=== PATIENT | female | born 1965 | race Caucasian/White ===

== ENCOUNTER 2025-07-06 14:08 | Inpatient (IN) | payer OTHER, SELFPAY ==
--- OUTSIDE RECORDS SUMMARY | 2025-07-03 10:45 | XMS_ITS | Encounter Summary ---
Author Organization [facility] Address [address] [place] [address] Care Team Providers Care Dedicated Driver Name Role Phone Karlene Drake MD Primary Care Provider [phone] Reason for Visit * Reason Comments SDMV SDMV * Consultation (Routine) - Authorized Specialty Diagnoses / Procedures Referred By Jackson ortiz Referred To Contact Thoracic Surgery Diagnoses Chronic obstructive pulmonary disease, unspecified COPD type (CMS/HCC V24, CMS/HCC V28) Portia Johnson MD 175 [facility] [address] [place] [address] Phone: tel: fax: Lung Screening Program - [address] [place] [address] Phone: tel: fax: Referral ID Status Reason Start Date Expiration Date Visits Requested Visits Authorized [id number] Authorized Specialty Services Required 06/09/2025 06/09/2026 1 1 Encounter Details Date Type Department Care Team ([facility] st Contact Info) Description 07/03/2025 10:45 AM EDT Office Visit Lung Screening Program - [place] [facility] [address] [place] [phone] Gabriela Brooks PA [address] [place] [phone] Encounter for screening for malignant neoplasm of lung in current smoker with 20 pack year history or greater (Primary Dx) Social History Tobacco Use Types Packs/Day Years Used Date Smoking Tobacco: Every Day Cigarettes 0.5 48.7 Started: 1976 Smokeless Tobacco: Never Tobacco Cessation:Ready to Q uit: Not Asked; Counseling Given: Not Answered Alcohol Use Standard Drinks/Week Comments No 0 (1 standard drink = 0.6 oz pur e alcohol) Comments Unknown Sex and Gender Information Value Date Recorded Sex Assigned at Female 06/13/2025 10:47 PM EDT Legal Sex Female 9:56 AM EST Gender Identity Not on file Sexual Orientation Not on file documented as of this encounter Last Filed Vital Signs Vital Sign Reading Time Taken Comments Blood Pressure - - Pulse - - Temperature 36.5 C (97.7 F) 07/03/2025 11:04 AM EDT Respiratory Rate - - Oxygen Saturation - - Inhaled Oxygen Concentration - - Weight - - Height - - Body Mass Index - - documented in this encounter Progress Notes * FABI Hill - 07/03/2025 10:45 AM EDT Images from the original note were not included. Lung Cancer Screening Program Shared Decision Making Visit Patient name: Anette Teran : 1965 Date of Visit: 07/03/2025 Care Team Referring Provider: Portia Johnson MD PCP: Karlene Drake MD History of Present Illness Ms. Teran is a 59 y.o. female who patient presents to the Lung Cancer Screening Program at [facility] for her Shared Decision Making visit. At time of this visit the patient denies any signs or symptoms concerning for active lung cancer including new or worsening cough, hemoptysis, significant chest pain, significant dyspnea, or unintentional weight loss. She denies any recent respiratory illnesses or hospitalizations for a respiratoryillness. Past Medical History: Diagnosis Date Atypical chest pain DX:Atypical chest pain Chronic pain of right ankle 07/03/2018 DX:Chronic pain of right ankle COPD (chronic obstructive pulmonary disease) ([facility] V24, [facility] V28) DX:COPD (chronic obstructive pulmonary disease) ([facility]) Diarrhea DX:Diarrhea Diarrhea DX:Diarrhea DVT prophylaxis DX:DVT prophylaxis Filling defect on imaging study DX:Filling defect on imaging study GERD (gastroesophageal reflux disease) DX:GERD (gastroesophageal reflux disease) Nausea DX:Nausea Passage of loose stools DX:Passage of loose stools SIRS (systemic inflammatory response syndrome) ([facility] V24, [facility] V28) DX:SIRS (systemic inflammatory response syndrome) ([facility]) Stress DX:Stress 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 90 tablet 1 Combivent Respimat 20-100 mcg/actuation inhaler INHALE ONE PUFF BY MOUTH FOUR TIMES A DAY NEEDEDFOR FOR SHORTNESS OF BREATH 4 g 1 fluticasone HFA (Flovent HFA) 110 mcg/actuation inhaler Inhale 2 puffs by mouth 2 (two) times a day. Rinse mouth with water after use to reduce aftertaste and incidence of candidiasis. Do not swallow. 1 each 11 gabapentin (NEURONTIN) 300 mg capsule Take 1 capsule (300 mg total) by mouth 3 (three) times a day if needed (pain). 90 each 5 midodrine (PROAMATINE) 2.5 mg tablet Take 1 tablet (2.5 mg total) by mouth 3 (three) times a day before meals. 90 each 0 omeprazole (PriLOSEC) [address] capsule Take 1 capsule (40 mg total) by mouth 1 (one) time each day.Do not crush or chew. 90 capsule 3 tiZANidine (ZANAFLEX) 2 mg tablet Take 1 tablet (2 mg total) by mouth 3 (three) times a day if needed for muscle spasms. 30 tablet 0 umeclidinium-vilanteroL (Anoro Ellipta) 62.5-25 mcg/actuation inhaler Inhale 1 puff by mouth 1 (one) time each day. 3 each 4 No current facility-administered medications for this visit. Social History Tobacco Use Smoking status: Every Day Current packs/day: 0.50 Average packs/day: 0.5 packs/day for 48.7 years (24.3 ttl pk-yrs) Types: Cigarettes Start date: 1976 Smokeless tobacco: Never Vaping Use Vaping status: Every Day Substances: Nicotine Devices: Disposable Substance Use Topics Alcohol use: No Drug use: No Social History Social History Narrative Not on file Family History Problem Relation Name Age of Onset Stroke Mother Thyroid disease Mother Depression Mother Diabetes Father Heart attack Father Diabetes Maternal Grandmother Lung cancer Neg Hx Exposure History Patient denies any significant exposure history Physical Exam Physical Exam Constitutional: General: She is not in acute distress. Appearance: She is well-developed. She is not ill-appearing. HENT: Head: Normocephalic and atraumatic. Mouth/Throat: Mouth: Mucous membranes are moist. Pulmonary: Effort: Pulmonary effort is normal. No accessory muscle usage or respiratory distress. Neurological: Mental Status: She is alert and oriented to person, place, and time. Psychiatric: Mood and Affect: Mood normal. Behavior: Behavior is cooperative. Assessment and Plan: Ms. Teran is a 59 y.o. female, current smoker, with a 24 pack-year total. The patient was determined to be eligible for LDCT scan given their age, tobacco history, and current asymptomatic state of health. All of the patient's questions were answered and understood at time of this visit. Patientis willing to pursue diagnosis and treatment should a lung cancer be found. The patient wishes to proceed with Lung Cancer Screening. The patient will be having her LDCT today following this visit. Patient Information / Education The patient was educated on our program's process for managing suspicious findings discovered on screening LDCT scans. Any patient with a Lung-RADS score 4 will be reviewed by a multidisciplinary team to form a plan of action in regards to that specific suspicious finding. If any further work-up iswarranted, this will be arranged and followed by the Lung Cancer Screening Program. The patient [facility] care physician will be notified of any suspicious LDCT scan results and the recommended plan. Patient educated on the importance of annual screening adherence. Importance of smoking cessation discussed. Patient educated that their primary care physician will be responsible for any incidental findings found on screening LDCT scans. Lung Cancer Screening decision aid and smoking cessation resources were made available to patient at time of this visit. FABI Hill [facility] Lung Cancer Screening Program [address] [facility], [address] [facility] [phone] documented in this encounter Plan of Treatment Upcoming Encounters Date Type Department Care Team ([facility] st Contact Info) Description 07/28/2025 11:30 AM EDT Office Visit Internal Medicine - [place] 175 [facility] [address] [place] [phone] Cj Welsh NP 175 [facility] Azael [address] [place] [address] 12/11/2025 9:45 AM EST Ancillary Procedure Pulmonol - [place] [address] [phone] 12/11/2025 10:30 AM EST Office Visit Pulmonolgy - [place] 175 [facility] [address] [place] [phone] Portia Johnson MD [address] [address] documented as of this encounter Visit Diagnoses Diagnosis Encounter for screening for malignant neoplasm of lung in current smoker with 20 pack year history or greater- Primary documented in this encounter Orders Outpatient Referral Count Last Ordered Date Fir st Ordered Date AMB REFERRAL TO [facility] LUNG SCREENING PROGRAM 1 07/03/2025 documented in this encounter Care Teams Dedicated Driver Relationship Specialty Start Date End Date Karlene Drake MD [address] [phone] PCP - General Internal Medicine 03/30/21 documented as of this encounter
--- OUTSIDE RECORDS SUMMARY | 2025-07-03 11:29 | XMS_ITS | Encounter Summary ---
Author Organization [facility] Address [address] [place] [address] Care Team Providers Care Senior Microstrategy Developer Name Role Phone Karlene Drake MD Primary Care Provider [phone] Reason for Referral * Imaging (Routine) - Authorized Specialty Diagnoses / Procedures Referred By Jackson ortiz Referred To Contact Radiology Diagnoses Screening for lung cancer Former smoker Procedures CT Lung Screening Candy Mcrae MD [address] [address] Phone: tel: fax: [address] [address] Phone: tel: Referral ID Status Reason Start Date Expiration Date V isits Requested Visits Authorized [id number] Authorized 06/11/2025 08/10/2025 1 1 Reason for Visit * Imaging (Routine) - Authorized Specialty Diagnoses / Procedures Referred By Jackson ortiz Referred To Contact Radiology Diagnoses Screening for lung cancer Former smoker Procedures CT Lung Screening Candy Mcrae MD [address] [address] Phone: tel: fax: [address] [address] Phone: tel: Referral ID Status Reason Start Date Expiration Date V isits Requested Visits Authorized [id number] Authorized 06/11/2025 08/10/2025 1 1 Encounter Details Date Type Department Care Team (Latest Contact Info) Description 07/03/2025 11:29 AM EDT - 07/03/2025 11:59 PM EDT Hospital Encounter [facility] CT Scan [address] [place] [address] Screening for lung cancer; Former smoker Discharge Disposition: Home or Self Care Social History Tobacco Use Types Packs/Day Years Used Date Smoking Tobacco: Every Day Cigarettes 0.5 48.7 Started: 1978 Smokeless Tobacco: Never Alcohol Use Standard Drinks/Week Comments No 0 (1 standard drink = 0.6 oz pur e alcohol) Comments Unknown Sex and Gender Information Value Date Recorded Sex Assigned at Female 06/13/2025 10:47 PM EDT Legal Sex Female 9:56 AM EST Gender Identity Not on file Sexual Orientation Not on file documented as of this encounter Medications at Time of Discharge atorvastatin (LIPITOR) 40 mg tablet Take 1 tablet (40 mg total) by mouth 1 (one) time each day. 90 tablet 1 01/20/2025 Combivent Respimat 20-100 mcg/actuation inhaler INHALE ONE PUFF BY MOUTH FOUR TIMES A DAY NEEDED FOR FOR SHORTNESS OF BREATH 4 g 1 03/03/2025 fluticasone HFA (Flovent HFA) 110 mcg/actuation inhaler Inhale 2 puffs by mouth 2 (two) times a day. Rinse mouth with water after use to reduce aftertaste and incidence of candidiasis. Do not swallow. 1 each 11 06/09/2025 6 gabapentin (NEURONTIN) 300 mg capsule Take 1 capsule (300 mg total) by mouth 3 (three) times a day if needed (pain). 90 each 5 06/09/2025 6 midodrine (PROAMATINE) 2.5 mg tabletIndications :Dizziness,Hypote nsion, unspecified hypotension type Take 1 tablet (2.5 mg total) by mouth 3 (three) times a day before meals. 90 each 06/09/2025 5 omeprazole (PriLOSEC) [address] capsuleIndication s:Gastroesophagea l reflux disease, unspecified whether esophagitis present Take 1 capsule (40 mg total) by mouth 1 (one) time each day. Do not crush or chew. 90 capsule 3 06/09/2025 tiZANidine (ZANAFLEX) 2 mg tabletIndications :Muscle spasm of both lower legs Take 1 tablet (2 mg total) by mouth 3 (three) times a day if needed for muscle spasms. 30 tablet 06/09/2025 umeclidinium-max nteroL (Anoro Ellipta) 62.5-25 mcg/actuation inhaler Inhale 1 puff by mouth 1 (one) time each day. 3 each 4 06/26/2025 documented as of this encounter Discharge Disposition Disposition Code Departure Means Destination Home or Self Care documented in this encounter Plan of Treatment Upcoming Encounters Date Type Department Care Team (Late st Contact Info) Description 07/28/2025 11:30 AM EDT Office Visit Internal Medicine - [place] [address] [phone] Cj Welsh NP [address] [address] 12/11/2025 9:45 AM EST Ancillary Procedure Pulmonolgy - [address] [phone] 12/11/2025 10:30 AM EST Office Visit Pulmonolgy [address] [phone] Portia Johnson MD [address] [address] Pending Results Name Type Priority Associated Diagnoses Date /Time CT Lung Screening Imaging Routine Screening for lung cancer Former smoker 07/03/2025 11:33 AM EDT Scheduled Orders Name Type Priority Associated Diagnoses Orde r Schedule CT Lung Screening Imaging Routine Screening for lung cancer Former smoker Once for 1 Occurrences starting 07/03/2025 until 07/03/2025 documented as of this encounter Visit Diagnoses Diagnosis Screening for lung cancer Former smoker Personal history of tobacco use, presenting hazards to health documented in this encounter Care Teams Senior Microstrategy Developer Relationship Specialty Start Date End Date Karlene Drake MD [address] [phone] PCP - General Internal Medicine 03/30/21 documented as of this encounter
[2025-07-06 14:15] VITALS: BP 133/80; PULSE 78; RESP 18; TEMP 35.9; O2SAT 96; BMI 29.1
--- NOTE | 2025-07-06 14:23 | ED.GENADULT ---
HPI - General Adult General Chief complaint: Psychiatric Symptoms Stated complaint: SI Time Seen by Provider: 07/06/25 14:23 Source: patient Mode of arrival: ambulatory Limitations: no limitations History of Present Illness ED Provider: Mariel Calles PA-C HPI narrative: Patient is a 59 year old assigned female at with a history of previous suicide attempt presenting to the emergency department today with suicidal ideation. Patient states that her mother in April and she has been feeling more depressed lately with thoughts of hurting herself. Patient states that her urine has also been odorus but she is not having any other symptoms or complaints at this time. Related Data Home Medications ?Medication ?Instructions ?Recorded ?Confirmed atorvastatin 40 mg tablet 40 mg PO DAILY 07/06/25 07/06/25 clonazepam 1 mg tablet 1 mg PO BID PRN Anxiety 07/06/25 07/06/25 divalproex 500 mg tablet,delayed 500 mg PO BID 07/06/25 07/06/25 release docusate sodium 100 mg capsule 100 mg PO BID PRN constipation 07/06/25 07/06/25 fluoxetine 40 mg capsule 40 mg PO DAILY 07/06/25 07/06/25 gabapentin 300 mg capsule 300 mg PO TID 07/06/25 07/06/25 hydroxyzine pamoate 50 mg capsule 50 mg PO TID PRN anxiety 07/06/25 07/06/25 ipratropium 20 mcg-albuterol 100 1 puff inhalation QID 07/06/25 07/06/25 mcg/actuation mist for inhalation (Combivent Respimat) midodrine 2.5 mg tablet 2.5 mg PO TID 07/06/25 07/06/25 omeprazole 40 mg capsule,delayed 40 mg PO DAILY 07/06/25 07/06/25 release tizanidine 2 mg tablet 2 mg PO TID 07/06/25 07/06/25 umeclidinium 62.5 mcg-vilanterol 1 ea inhalation DAILY 07/06/25 07/06/25 25 mcg/actuation powdr for inhalation (Anoro Ellipta) zolpidem 10 mg tablet 10 mg PO BEDTIME PRN Insomnia 07/06/25 07/06/25 Allergies Allergy/AdvReac Type Severity Reaction Status Date / Time hydrocodone (HYDROCODONE) AdvReac Mild ITCHING Verified 07/06/25 15:39 Review of Systems Constitutional: Constitutional: Reports as per HPI Eyes: Eyes: Reports as per HPI ENT: Reports as per HPI Cardiovascular: Cardiovascular: Reports as per HPI Respiratory: Respiratory: Reports as per HPI Gastrointestinal: Gastrointestinal: Reports as per HPI Genitourinary: Genitourinary: Reports as per HPI Musculoskeletal: Musculoskeletal: Reports as per HPI Integumentary/Breasts: Skin/Breast: Reports as per HPI Neurologic: Reports as per HPI Psychiatric: Psychiatric: Reports as per HPI Endocrine: Endocrine: Reports as per HPI Hematologic/Lymphatic: Hematologic/Lymphatic: Reports as per HPI Allergic/Immunologic: Allergic/Immunologic: Reports as per HPI [facility] Past Medical History Attestation statement: The following information was validated with the patient. Source: old records reviewed and nursing notes reviewed Social History Social History Unable to assess alcohol history related to: Unknown Smoked in Last 30 Days: Yes Advance Directives: No Advance Directives Information Provided: Yes Do you have a plan to hurt others: No Plan Physical Exam ED Vital Signs: Vital Signs - 24 hr 07/06/25 14:15 Temperature 96.6 F L Pulse Rate 78 Respiratory Rate 18 Blood Pressure 133/80 Pulse Oximetry 96 BMI result Body Mass Index 29.1 Const General: cooperative, no acute distress, alert and awake Nutritional Appearance: well nourished Orientation/consciousness: patient oriented x3 HENMT Head: Yes normal to inspection and Yes atraumatic Ears: hearing grossly normal bilaterally and external ears normal General nose exam: Normal external nose present, no nasal discharge noted and no epistaxis Face and sinus: Yes normal facial exam, No abrasion and No laceration Mouth: Normal oral and palatal mucosa present, no drooling and no muffled voice Eyes General: appearance normal, both eyes and all related structures Periorbital: periorbital findings normal Eyelids: Yes eyelids normal Conjunctivae: conjunctivae normal Pupils: Equal, round and reactive pupils present EOM: EOMs intact bilaterally Neck Neck: Yes normal visual inspection and Yes full ROM Resp Effort & Inspection: normal respiratory effort and able to speak in complete sentences Neuro General: patient oriented x3, moves all extremities and CN's II-XI intact bilaterally Cranial nerves: Yes Equal, round and reactive pupils present Cognition (Neuro): normal cognition Extrem General: Yes normal to inspection, Yes full ROM and Yes capillary refill normal Psych Appearance: grossly normal Mental Status: mental status grossly normal Affect: Sad affect present Thought content: Suicidality present Medical Decision Making Medical Decision Making [facility] Narrative: Patient is a 59 year old assigned female at with a history of previous suicide attempt presenting to the emergency department today with suicidal ideation. Patient's physical exam was as noted in the physical exam portion of this note. Patient's blood work was unremarkable. Patient's urine showed a possible UTI - given her report of foul smelling urine, will treat with ABX. Patient was evaluated by the CARE team who recommended inpatient level of psychiatric care. I explained my physical exam findings as well as all test results to the patient. I answered all questions asked by the patient. Patient placed in observation at 1524 pending either admission here at [facility] Psychiatry or transfer to an appropriate psychiatric facility. Differential Diagnosis Differential Diagnoses: The differential diagnosis associated with the presentation includes SI UTI Admission/Observation Consideration of admission/observation: Escalation of care including admission/observation considered Patient will either be admitted here at [facility] Psych or transferred an appropriate psychiatric facility. Consult Healthcare Provider Management of the patient was discussed with: Behavioral Health Provider (spoke with the CARE team as noted in the MDM Rationale portion of this note. ) Lab Data [facility] Lab Attestation statement: I reviewed the patient's lab results. My interpretation of these results are in the MDM Rationale portion of this note. 07/06/25 14:55 07/06/25 14:55 Labs: Lab Results 07/06/25 Range/Units 14:55 WBC 9.7 (4.8-10.8) X10*3/uL RBC 5.18 (4.20-5.50) X10*6/uL Hgb 16.4 H (12.0-16.0) g/dl Hct 47.9 H (37.0-47.0) % MCV 92.5 (80.0-98.0) fL MCH 31.7 (27.0-33.0) pg MCHC 34.2 (31.0-35.0) g/dl RDW 14.8 (11.0-16.0) % Plt Count 363 (160-400) X10*3/uL MPV 10.0 (9.4-12.3) fL Immature Gran % (Auto) 0.7 H (0.0-0.4) % Neut % (Auto) 53.7 (45-73) % Lymph % (Auto) 30.8 (20-40) % Gibson % (Auto) 12.9 H (2-11) % Eos % (Auto) 1.3 (0-4) % Baso % (Auto) 0.6 (0-2) % Lymph # (Auto) 3.0 (1.2-4.9) X10*3/uL Gibson # (Auto) 1.3 H (0.1-1.2) X10*3/uL Eos # (Auto) 0.1 (0.0-0.4) X10*3/uL Baso # (Auto) 0.1 (0.0-0.2) X10*3/uL Abs Immat Gran (auto) 0.07 H (0.00-0.03) X10*3/uL Absolute Neuts (auto) 5.2 (2.0-8.3) x10*3/uL Absolute Nucleated RBC 0.000 (0.0-0.012) X10*3/uL Nucleated RBC % (auto) 0.0 (0.0-0.2) /100WBC Sodium 143 (135-145) mmol/L Potassium 4.2 (3.3-5.1) mmol/L Chloride 104 (96-108) mmol/L Carbon Dioxide 25 (22-29) mmol/L Anion Gap 18 (12-20) BUN 11 (9-16) mg/dL Creatinine 1.03 (0.5-1.4) mg/dL Estim Creat Clear Calc 55.4 Estimated GFR 54 Random Glucose 89 (60-115) mg/dL Calcium 9.6 (8.4-10.2) mg/dL Total Bilirubin 0.5 (0.0-1.0) mg/dL AST 22 (5-31) U/L ALT 21 (0-31) U/L Alkaline Phosphatase 66 (39-117) U/L Total Protein 7.6 (6.5-8.0) g/dL Albumin 4.8 (3.5-5.0) g/dL Urine Color Yellow Urine Appearance Cloudy Urine pH 6.5 (5.0-9.0) Ur Specific [place] 1.015 (1.005-1.025) Urine Protein Negative (Neg-Trace) mg/dL Urine Glucose (UA) Negative (Negative) mg/dL Urine Ketones Negative (Negative) mg/dL Urine Blood Negative (Negative) Urine Nitrite Positive H (Negative) Ur Leukocyte Esterase Trace H (Negative) Urine RBC 0-2 (0-2) /HPF Urine WBC 6-10 H (0-5) /HPF Ur Squamous Epith Cells 3-5 (0-2) /HPF Urine Bacteria 4+ (None Seen) Hyaline Casts 0-2 (0-2) /LPF Urine Opiates Screen Not Detected (Not Detect) Ur Buprenorphine Scrn Not Detected (Not Detect) ng/mL Ur Oxycodone Screen Not Detected (Not Detect) ng/mL Urine Methadone Screen Not Detected (Not Detect) ng/mL Urine Fentanyl Screen Not Detected (Not Detect) Ur Barbiturates Screen Not Detected (Not Detect) Ur Phencyclidine Scrn Not Detected (Not Detect) Ur Amphetamines Screen Not Detected (Not Detect) U Benzodiazepines Scrn Not Detected (Not Detect) Urine Cocaine Screen Not Detected (Not Detect) U Marijuana (THC) Screen Not Detected (Not Detect) Ethyl Alcohol < 10 mg/dL Critical Care Time Critical Care Time Critical Care Time: Yes Total Critical Care Time: 32 Attestation: I spent 32 minutes of Critical Care Time with this patient. This does not include time spent on separately reported billable procedures. Discharge Plan Discharge Clinical Impression: Suicidal ideation, UTI (urinary tract infection) Prescriptions: No Action fluoxetine 40 mg capsule 40 mg PO DAILY atorvastatin 40 mg tablet 40 mg PO DAILY tizanidine 2 mg tablet 2 mg PO TID clonazepam 1 mg tablet 1 mg PO BID PRN (Reason: Anxiety) hydroxyzine pamoate 50 mg capsule 50 mg PO TID PRN (Reason: anxiety) divalproex 500 mg tablet,delayed release (DR/EC) 500 mg PO BID omeprazole 40 mg capsule,delayed release(DR/EC) 40 mg PO DAILY docusate sodium 100 mg capsule 100 mg PO BID PRN (Reason: constipation) gabapentin 300 mg capsule 300 mg PO TID midodrine 2.5 mg tablet 2.5 mg PO TID zolpidem 10 mg tablet 10 mg PO BEDTIME PRN (Reason: Insomnia) umeclidinium-vilanterol [Anoro Ellipta] 62.5-25 mcg/actuation blister with device 1 ea inhalation DAILY Combivent Respimat 20-100 mcg/actuation mist 1 puff inhalation QID Interventions: Webster-Suicide Risk Severity Scale Last Done: 07/06/25 14:53 Print Language: Mongolian
[2025-07-06 15:00] LABS: Hematocrit 47.9 % (37.0-47.0); Hemoglobin 16.4 g/dl (12.0-16.0); Imm Gran Abs Auto 0.07 X10*3/uL (0.00-0.03); Imm Gran Pct Auto 0.7 % (0.0-0.4); Lymphocytes Absolute Auto 3.0 X10*3/uL (1.2-4.9); MANUAL DIFF FLAG NO; Mean Corpuscular HGB Conc 34.2 g/dl (31.0-35.0); Mean Corpuscular Hemoglobin 31.7 pg (27.0-33.0); Mean Corpuscular Volume 92.5 fL (80.0-98.0); NRBC Abs Auto 0.000 X10*3/uL (0.0-0.012); NRBC Pct Auto 0.0 /100WBC (0.0-0.2); Platelet Count 363 X10*3/uL (160-400); Red Blood Count 5.18 X10*6/uL (4.20-5.50); White Blood Count 9.7 X10*3/uL (4.8-10.8)
[2025-07-06 15:02] LABS: Appearance Urine Cloudy; Glucose Urine UA Negative (Negative); PH 6.5 (5.0-9.0); Specific Gravity - Urine 1.015 (1.005-1.025); UMIC TRIGGER UACC YES
[2025-07-06 15:13] LABS: UACC Culture Trigger YES
[2025-07-06 15:16] LABS: Cannabinoid Screen Urine Not Detected (Not Detect)
[2025-07-06 15:32] LABS: Alanine Aminotransferase 21 U/L (0-31); Albumin Level 4.8 g/dL (3.5-5.0); Alkaline Phosphatase 66 U/L (39-117); Anion Gap 18 (12-20); Aspartate Amino Transferase 22 U/L (5-31); Blood Urea Nitrogen 11 mg/dL (9-16); Calcium 9.6 mg/dL (8.4-10.2); Carbon Dioxide 25 mmol/L (22-29); Chloride 104 mmol/L (96-108); Creatinine Clr Calc Pharmacy 55.4; Estimated Glomerular Filt Rate 54; Potassium 4.2 mmol/L (3.3-5.1); Sodium 143 mmol/L (135-145); Total Protein 7.6 g/dL (6.5-8.0)
--- OUTSIDE RECORDS SUMMARY | 2025-07-06 16:21 | XMS_ITS | Encounter Summary ---
Author Organization [facility] Address [id number] [place] [phone] Care Team Providers Care Director Of Marketing And Promotions Name Role Phone Karlene Darke MD Primary Care Provider [phone] Encounter Details Date Type Department Care Team ([facility] st Contact Info) Description 06/12/2025 Telephone Pulmonol - [place] 175 [facility] [address] [place] [phone] Portia Johnson MD 175 [facility] [address] [place] [address] Social History Tobacco Use Types Packs/Day Years Used Date Smoking Tobacco: Former Cigarettes 0.5 48.5 S tarted: 1977 Smokeless Tobacco: Never Alcohol Use Standard Drinks/Week Comments No 0 (1 standard drink = 0.6 oz pur e alcohol) Comments Unknown Sex and Gender Information Value Date Recorded Sex Assigned at Female 06/13/2025 10:47 PM EDT Legal Sex Female 9:56 AM EST Gender Identity Not on file Sexual Orientation Not on file documented as of this encounter Progress Notes * Ian Martinez MA - 06/20/2025 10:28 AM EDT Form on desk to review. * Cristel Black - 06/20/2025 10:03 AM EDT Medicaid pharmacy authorization form received, scanned to patients chatt * Nilsa Barajas MA - 06/12/2025 11:01 AM EDT PA for fluticasone HFA (Flovent HFA) 110 mcg/actuation inhaler initiated on cmm Dx copd * Cristel Makiorio - 06/12/2025 10:06 AM EDT Prior auth needed for fluticasone HFA (Flovent HFA) 110 mcg/actuation inhaler Ortiz: [id number] documented in this encounter Plan of Treatment Upcoming Encounters Date Type Department Care Team (Late st Contact Info) Description 07/28/2025 11:30 AM EDT Office Visit Internal Medicine - [place] [address] [facility] [address] [phone] Cj Welsh NP [address] [address] 12/11/2025 9:45 AM EST Ancillary Procedure Pulmonolgy - [place] [address] [phone] 12/11/2025 10:30 AM EST Office Visit Pulmonolgy - [place] [address] [facility] [address] [phone] Portia Johnson MD [address] [address] documented as of this encounter Visit Diagnoses Not on filedocumented in this encounter Care Teams Director Of Marketing And Promotions Relationship Specialty Start Date End Date Karlene Drake MD [address] [phone] PCP - General Internal Medicine 03/30/21 documented as of this encounter
--- OUTSIDE RECORDS SUMMARY | 2025-07-06 16:21 | XMS_ITS ---
[facility] Organization Unknown Care Team Organization Name Specialty Phone Email Start Date End Da te [facility] Primary Care 09/06/2022 06/17/20 24
--- OUTSIDE RECORDS SUMMARY | 2025-07-06 16:21 | XMS_ITS | Encounter Summary ---
Author Organization [facility] Address [address] [place] [address] Care Team Providers Care Maintenance Planner Name Role Phone Karlene Drake MD Primary Care Provider Reason for Visit * Reason Onset Date Comments PRIOR AUTH 06/23/2025 Encounter Details Date Type Department Care Team ([facility] st Contact Info) Description [facility] [address] [place] [phone] Portia Johnson MD 175 [facility] [address] [place] [address] Social History Tobacco Use Types Packs/Day Years [...] as of this encounter Progress Notes * Nilsa Barajas MA - 06/23/2025 11:12 AM EDT PA for Fluticasone propionate hfa 110 mcg/ act aerosol initiated on cmm Dx J44.9 * Cristel Black - 06/23/2025 10:09 AM EDT Prior auth needed for Fluticasone propionate hfa 110 mcg/ act aerosol Ortiz: [id number] documented in this encounter Plan of Treatment Upcoming Encounters Date Type Department Care Team (Late st Contact Info) Description 07/28/2025 11:30 AM EDT Office Visit Internal Medicine - [place] 175 [facility] [address] [place] [phone] Cj Welsh NP [address] [address] 12/11/2025 9:45 AM EST Ancillary Procedure Pulmonolgy - [place] [address] [phone] 12/11/2025 10:30 AM EST [facility] [address] [phone] Portia Johnson MD [address] [address] documented as of this encounter Visit Diagnoses Not on filedocumented in this encounter Care Teams Maintenance Planner Relationship Specialty Start Date End Date Kralene Drake MD [address] [phone] PCP - General Internal Medicine 03/30/21 documented as of this encounter
--- OUTSIDE RECORDS SUMMARY | 2025-07-06 16:21 | XMS_ITS | Clinical Summary ---
Author Organization [address] [place] [address] [place] [phone] Phone Care Team Providers Care Broadband Installer Name Role Phone Karlene Drake MD Primary Care Provider [phone] Allergies No known active allergies Medications atorvastatin (LIPITOR) 40 mg tablet Take 1 tablet (40 mg total) by mouth 1 (one) time each day. 90 tablet 1 5 Active Combivent Respimat 20-100 mcg/actuation inhaler INHALE ONE PUFF BY MOUTH FOUR TIMES A DAY NEEDED FOR FOR SHORTNESS OF BREATH 4 g 1 5 Active gabapentin (NEURONTIN) 300 mg capsule Take 1 capsule (300 mg total) by mouth 3 (three) times a day if needed (pain). 90 each 5 5 12/06/19 26 Active midodrine (PROAMATINE) 2.5 mg tabletIndicatio ns:Dizziness,Hy potension, unspecified hypotension type Take 1 tablet (2.5 mg total) by mouth 3 (three) times a day before meals. 90 each 5 07/09/20 25 Active tiZANidine (ZANAFLEX) 2 mg tabletIndicatio ns:Muscle spasm of both lower legs Take 1 tablet (2 mg total) by mouth 3 (three) times a day if needed for muscle spasms. 30 tablet 5 Active omeprazole (PriLOSEC) [address] capsuleIndicati ons:Gastroesoph ageal reflux disease, unspecified whether esophagitis present Take 1 capsule (40 mg total) by mouth 1 (one) time each day. Do not crush or chew. 90 capsule 3 5 Active fluticasone HFA (Flovent HFA) 110 mcg/actuation inhaler Inhale 2 puffs by mouth 2 (two) times a day. Rinse mouth with water after use to reduce aftertaste and incidence of candidiasis. Do not swallow. 1 each 11 5 06/09/20 26 Active umeclidinium-vi lanteroL (Anoro Ellipta) 62.5-25 mcg/actuation inhaler Inhale 1 puff by mouth 1 (one) time each day. 3 each 4 5 06/26/20 26 Active omeprazole (PriLOSEC) [address] capsule Take 1 capsule (40 mg total) by mouth 1 (one) time each day. Do not crush or chew. 90 capsule 3 5 06/09/20 25 Discontin ued(Reord er) umeclidinium-vi lanteroL (Anoro Ellipta) 62.5-25 mcg/actuation inhaler Inhale 1 puff by mouth 1 (one) time each day. 3 each 4 5 06/26/20 25 Discontin ued(Reord er) Active Problems Problem Noted Date Diagnosed Date Hyperlipidemia 06/10/2025 Depression 06/10/2025 Former cigarette smoker 06/10/2025 GERD (gastroesophageal reflux disease) Encounters Date Type Department Care Team Description 07/03/2025 11:29 AM EDT - 07/03/2025 11:59 PM EDT Hospital Encounter [facility] CT Scan [address] [place] [phone] Screening for lung cancer; Former smoker Discharge Disposition: Home or Self Care 07/03/2025 10:45 AM EDT Office Visit Lung Screening Program - [place] [address] [facility] [address] [place] [phone] Gabriela Brooks PA Encounter for screening for malignant neoplasm of lung in current smoker with 20 pack year history or greater (Primary Dx) 06/23/2025 Telephone Pulmonolgy [facility] [address] [facility] [address] [place] [phone] Portia Johnson MD 06/19/2025 Telephone Pulmonolgy - [place] [address] [phone] Portia Johnson MD 06/12/[address] [phone] Portia Johnson MD 06/09/2025 10:45 AM EDT Office Visit Pul[address] [phone] Portia Johnson MD Chronic obstructive pulmonary disease, unspecified COPD type (CMS/HCC V24, CMS/[facility] V28) (Primary Dx) 06/09/2025 10:00 AM EDT Office Visit Internal Medicine [address] [phone] Cj Welsh NP Routine adult health maintenance (Primary Dx); Screening for ischemic heart disease; Screening for diabetes mellitus; Vitamin B12 deficiency; Vitamin D deficiency; Encounter for screening mammogram for malignant neoplasm of breast; Hyperlipidemia, unspecified hyperlipidemia type; Chronic obstructive pulmonary disease, unspecified COPD type (CMS/HCC V24, CMS/[facility] V28); Depression, unspecified depression type; Gastroesophageal reflux disease, unspecified whether esophagitis present; Right hip pain; Memory changes; Hypotension, unspecified hypotension type; Muscle spasm of both lower legs; Anemia, unspecified type; Insomnia, unspecified type; Dizziness 06/03/2025 Telephone Internal Medicine - [address] [phone] Karlene Drake MD from Last 3 Months Surgical History Surgery Date Site/Laterality Comments CHOLECYSTECTOMY 1994 PROCEDURE: HISTORICAL CHOLECYSTECTOMY HYSTERECTOMY 1997 PROCEDURE: HISTORICAL TOTAL HYSTERECTOMY WITH BSO; COMMENT: JOSE/BSO Medical History Medical History Date Comments Chronic pain of right ankle 07/03/2018 DX:C hronic pain of right ankle 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 V24, [facility] V28) DX:COPD (chronic o bstructive pulmonary disease) ([facility]) DVT prophylaxis DX:DVT prophylax is Diarrhea DX:Diarrhea Stress DX:Stress Family History Medical History Relation Name Comments Diabetes Father Heart attack Father Diabetes Maternal Grandmother Depression Mother Stroke Mother Thyroid disease Mother Lung cancer Neg Hx Relation Name Status Comments Father (Age 59) MD Maternal Grandfather Maternal Grandmother (Age 77) Mother Alive Paternal Grandfather Paternal Grandmother Alive Social History Tobacco Use Types Packs/Day Years [...] on file Sexual Orientation Not on file Obstetrics History Last Filed Vital Signs Vital Sign Reading Time Taken Comments Blood Pressure 94/60 06/09/2025 11:11 AM EDT Pulse 61 06/09/2025 11:11 AM EDT Temperature 36.5 C (97.7 F) 07/03/2025 11:04 AM EDT Respiratory Rate 20 06/09/2025 11:1 1 AM EDT Oxygen Saturation 94% 06/09/2025 11: 11 AM EDT Inhaled Oxygen Concentration - - Weight 75.7 kg (166 lb 12.8 oz) 025 11:11 AM EDT Height 160 cm (5' 3 ) 06/09/2025 11:11 AM EDT Body Mass Index 29.55 06/09/2025 11:11 AM EDT Plan of Treatment Upcoming Encounters Date Type Department Care Team (Late st Contact Info) Description 07/28/2025 11:30 AM EDT Office Visit Internal Medicine - [place] 175 [facility] [address] [place] [address] Cj Welsh NP [address] [address] 12/11/2025 9:45 AM EST [facility] [address] [phone] 12/11/2025 10:30 AM EST [facility] [address] [phone] Portia Johnson MD [address] [address] Health Maintenance Due Date Last Done Comments Breast Cancer Screening 1965 Cervical Cancer Screening: P ap Smear 1984 DTaP,Tdap,and Td Vaccines (2 - Td or Tdap) 10/30/2011 10/30/2001 Pneumococcal Vaccine: 50+ Years (2 of 2 - PCV) 08/24/2019 08/24/2018 Colorectal Cancer Screening: Colonoscopy 10/08/2022 HIV Screening 10/08/2022 Hepatitis C Screening 10/08/2022 Social Influencers of Health Screening 10/08/2022 RSV Immunization Adult Patients (1 - Risk 60-74 years 1-dose series) 2023 Lung Cancer Screening (Low Dose CT) 05/29/2024 05/29/2023, 05/09/2022, 04/26/2021 Depression Screening 10/30/2024 COVID-19 Vaccine (3 - 2024-2 6 season) 2025 03/15/2021, 02/12/2021 Influenza Vaccine (#1) 2025 Hypertension/CHF/CAD Annual BMP Blood Test 06/09/2026 06/09/2025 Cholesterol Screening (Lipid Panel) 06/09/2030 06/09/2025 Zoster Vaccines Completed 05/08/2020, 12/06/2019 HIB Vaccines Aged Out No longer eligi ble based on patient's age to complete this topic HPV Vaccines Aged Out No longer eligi ble based on patient's age to complete this topic Hepatitis A Vaccines Aged Out No long er eligible based on patient's age to complete this topic Hepatitis B Vaccines Aged Out No long er eligible based on patient's age to complete this topic IPV Vaccines Aged Out No longer eligi ble based on patient's age to complete this topic MMR Vaccines Aged Out No longer eligi ble based on patient's age to complete this topic Meningococcal ACWY Vaccine Aged Out N o longer eligible based on patient's age to complete this topic Meningococcal B Vaccine Aged Out No l onger eligible based on patient's age to complete this topic RSV Immunization Patients Under 20 months Aged Out No longer eligible b ased on patient's age to complete this topic Varicella Vaccines Aged Out No longer eligible based on patient's age to complete this topic Procedures Procedure Name Priority Date/Time Associated Diagnosis Comments CBC WITH AUTO DIFFERENTIAL Routine 06/09/2025 11:34 AM EDT Anemia, unspecified type IRON AND TIBC Routine 06/09/2025 11:34 AM EDT Anemia, unspecified type FOLATE Routine 06/09/2025 11:34 AM EDT Anemia, unspecified type FERRITIN Routine 06/09/2025 11:34 AM EDT Anemia, unspecified type CBC AND DIFFERENTIAL Routine 06/09/2025 11:34 AM EDT Anemia, unspecified type VITAMIN D 25 HYDROXY Routine 06/09/2025 11:34 AM EDT Vitamin D deficiency VITAMIN B12 Routine 06/09/2025 11:34 AM EDT Vitamin B12 deficiency MAGNESIUM Routine 06/09/2025 11:34 AM EDT Routine adult health maintenance THYROID STIMULATING HORMONE WITH REFLEX TO FREE T4 AND FREE T3 Routine 06/09/2025 11:34 AM EDT Routine adult health maintenance HEMOGLOBIN A1C Routine 06/09/2025 11:34 AM EDT Screening for diabetes mellitus COMPREHENSIVE METABOLIC PANEL Routine 06/09/2025 11:34 AM EDT Routine adult health maintenance LIPID PANEL WITH REFLEX TO DIRECT LDL Routine 06/09/2025 11:34 AM EDT Screening for ischemic heart disease CT LUNG SCREENING LOW DOSE Routine 05/29/2023 11:34 AM EDT Personal history of nicotine dependence from Last 3 Months or Most Recently Relevant to Health Maintenance Results * Thyroid stimulating hormone with reflex to free t4 and free t3 (06/09/2025 11:34 AM EDT) Pathologist [facility] TSH 1.35 0.40 - 4.00 mcIU/mL LAB CHEMISTRY METHOD 06/09/2025 4:[address] [facility] Blood Venous blood specimen / Unknown Venipuncture / Unknown 06/09/2025 11:34 AM EDT 06/09/2025 11:34 AM EDT Cj Welsh NP LAB BLOOD ORDERABLES Final Resul t [facility] [address] [place] [address], [place] [phone] * Lipid panel with reflex to direct LDL (06/09/2025 11:34 AM EDT) [facility] Cholesterol 114 0 - 200 mg/dL LAB CHEMISTRY METHOD 06/09/2025 3:[address] [facility] Triglycerides 137 0 - 150 mg/dL LAB CHEMISTRY METHOD 06/09/2025 3:[address] [facility] HDL 55 >=40 mg/dL LAB CHEMISTRY METHOD 06/09/2025 3:[address] [facility] LDL Calculated 32 0 - 100 mg/dL LAB CHEMISTRY METHOD 06/09/2025 3:[address] [facility] Comment:Estimated LDL Calcul ated using equation: Total cholesterol - HDL cholesterol - (Triglycerides/5) VLDL Cholesterol Jimmie 27.4 mg/dL LAB CHEMISTRY METHOD 06/09/2025 3:[address] [facility] Non HDL Chol. (LDL+VLDL) 59 <145 mg/dL LAB CHEMISTRY METHOD 06/09/2025 3:[address] [facility] Chol/HDL Ratio 2.1 0.0 - 4.4 LAB CHEMISTRY METHOD 06/09/2025 3:[address] [facility] Blood Venous blood specimen / Unknown Venipuncture / Unknown 06/09/2025 11:34 AM EDT 06/09/2025 11:34 AM EDT us Cj Welsh NP LAB BLOOD ORDERABLES Final Resul t [facility] [address] [place] [address], [place] [phone] * (ABNORMAL) CBC auto differential (06/09/2025 11:34 AM EDT) WBC 8.2 4.8 - 10.8 K/mcL LAB HEMETOLOGY METHOD 06/09/2025 2:[address] [facility] RBC 4.40 3.80 - 4.80 M/mcL LAB HEMETOLOGY METHOD 06/09/2025 2:[address] [facility] Hemoglobin 13.7 11.5 - 16.0 g/dL LAB HEMETOLOGY METHOD 06/09/2025 2:[address] [facility] Hematocrit 43.4 35.0 - 47.0 % LAB HEMETOLOGY METHOD 06/09/2025 2:[address] [facility] MCV 98.6(H) 79.0 - 98.0 FL LAB HEMETOLOGY METHOD 06/09/2025 2:[address] [facility] MCH 31.1 27.0 - 32.0 pcg LAB HEMETOLOGY METHOD 06/09/2025 2:[address] [facility] MCHC 31.6(L) 32.0 - 37.0 g/dL LAB HEMETOLOGY METHOD 06/09/2025 2:[address] [facility] RDW 15.4(H) 11.0 - 15.0 % LAB HEMETOLOGY METHOD 06/09/2025 [facility] Platelets 309 130 - 400 K/mcL LAB HEMETOLOGY METHOD 06/09/2025 2:[address] [facility] MPV 11.0 7.0 - 11.0 FL LAB HEMETOLOGY METHOD 06/09/2025 2:[address] [facility] NRBC 0.0 <1.0 % LAB HEMETOLOGY METHOD 06/09/2025 2:15 [facility] NRBC Absolute 0.00 <0.10 K/mcL LAB HEMETOLOGY METHOD 06/09/2025 2:15 [facility] Neutrophils Relative 44.0 % LAB HEMETOLOGY METHOD 06/09/2025 2:15 PM [facility] Lymphocytes Relative 40.0 % LAB HEMETOLOGY METHOD 06/09/2025 2:15 PM [facility] Monocytes Relative 13.1 % LAB HEMETOLOGY METHOD 06/09/2025 2:15 PM [facility] Eosinophils Relative 1.3 % LAB HEMETOLOGY METHOD 06/09/2025 2:[address] [facility] Basophils Relative 0.9 % LAB HEMETOLOGY METHOD 06/09/2025 2:[address] [facility] Immature Granulocytes Relative 0.7 % LAB HEMETOLOGY METHOD 06/09/2025 2:15 PM [facility] Neutrophils Absolute 3.60 1.50 - 7.00 K/mcL LAB HEMETOLOGY METHOD 06/09/2025 2:[address] [facility] Lymphocytes Absolute 3.27 1.00 - 5.00 K/mcL LAB HEMETOLOGY METHOD 06/09/2025 2:[address] [facility] Monocytes Absolute 1.07(H) 0.20 - 1.00 K/[facility] LAB HEMETOLOGY METHOD 06/09/2025 2:[address] [facility] Eosinophils Absolute 0.11 0.00 - 0.50 K/[facility] LAB HEMETOLOGY METHOD 06/09/2025 2:[address] [facility] Basophils Absolute 0.07 0.00 - 0.20 K/[facility] LAB HEMETOLOGY METHOD 06/09/2025 2:[address] [facility] Immature Granulocytes Absolute 0.06(H) 0.00 - 0.03 K/[facility] LAB HEMETOLOGY METHOD 06/09/2025 2:[address] [facility] Blood Venous blood specimen / Unknown Venipuncture / Unknown 06/09/2025 11:34 AM EDT 06/09/2025 11:34 AM EDT us Cj Welsh NP LAB BLOOD ORDERABLES Final Resul t [facility] [address] [place] [address], * Iron and TIBC (06/09/2025 11:34 AM EDT) Iron 67 40 - 150 mcg/dL LAB CHEMISTRY METHOD 06/09/2025 3:[address] [facility] TIBC 378 250 - 450 mcg/dL LAB CHEMISTRY METHOD 06/09/2025 3:[address] [facility] Iron Saturation 18 15 - 50 % LAB CHEMISTRY METHOD 06/09/2025 3:[address] [facility] Blood Venous blood specimen / Unknown Venipuncture / Unknown 06/09/2025 11:34 AM EDT 06/09/2025 11:34 AM EDT us Cj Welsh NP LAB BLOOD ORDERABLES Final Resul t Performing Organization Address City/[facility]/ZIP Co de Phone Number [facility] [address] [place] [address], [place] [phone] * Vitamin D 25 hydroxy (06/09/2025 11:34 AM EDT) [facility] Vit D, 25-Hydroxy 35.9 30.0 - 80.0 ng/mL LAB CHEMISTRY METHOD 06/09/2025 4:[address] [facility] Blood Venous blood specimen / Unknown Venipuncture / Unknown 06/09/2025 11:34 AM EDT 06/09/2025 11:34 AM EDT us Cj Welsh VP DATA LAB BLOOD ORDERABLES Final Resul t Performing Organization Address City/[facility] Co de Phone Number [facility] [address] [place] [address], [place] [phone] * Magnesium (06/09/2025 11:34 AM EDT) [facility] Magnesium 2.2 1.9 - 2.6 mg/dL LAB CHEMISTRY METHOD 06/09/2025 2:[address] [facility] Blood Venous blood specimen / Unknown Venipuncture / Unknown 06/09/2025 11:34 AM EDT 06/09/2025 11:34 AM EDT us Cj Welsh VP DATA LAB BLOOD ORDERABLES Final Resul t Performing Organization Address City/[facility]/ZIP Co de Phone Number [facility] [address] [place] [address], [place] [phone] * Hemoglobin A1c (06/09/2025 11:34 AM EDT) [facility] Hemoglobin A1C 5.7 <6.5 % LAB CHEMISTRY METHOD 06/09/2025 9:[address] [facility] Mean Bld Glu Estim. 117 mg/dL LAB CHEMISTRY METHOD 06/09/2025 9:[address] [facility] Blood Venous blood specimen / Unknown Venipuncture / Unknown 06/09/2025 11:34 AM EDT 06/09/2025 11:34 AM EDT us Cj Welsh VP DATA LAB BLOOD ORDERABLES Final Resul t [facility] [address] [place] [address], [place] [phone] * Folate (06/09/2025 11:34 AM EDT) Folate 13.2 2.8 - 17.0 ng/ml LAB CHEMISTRY METHOD 06/09/2025 3:[address] [facility] Blood Venous blood specimen / Unknown Venipuncture / Unknown 06/09/2025 11:34 AM EDT 06/09/2025 11:34 AM EDT us Cj Welsh NP LAB BLOOD ORDERABLES Final Resul t [facility] [address] [place] [address], [place] [phone] * Ferritin (06/09/2025 11:34 AM EDT) Ferritin 16 8 - 252 ng/mL LAB CHEMISTRY METHOD 06/09/2025 3:[address] [facility] Blood Venous blood specimen / Unknown Venipuncture / Unknown 06/09/2025 11:34 AM EDT 06/09/2025 11:34 AM EDT us Cj Welsh VP DATA LAB BLOOD ORDERABLES Final Resul t Performing Organization Address City/[facility]/ZIP Co de Phone Number [facility] [address] [place] [address], [place] [phone] * Vitamin B12 (06/09/2025 11:34 AM EDT) [facility] Vitamin B-12 598 250 - 900 pcg/mL LAB CHEMISTRY METHOD 06/09/2025 3:[address] [facility] Blood Venous blood specimen / Unknown Venipuncture / Unknown 06/09/2025 11:34 AM EDT 06/09/2025 11:34 AM EDT Cj Welsh NP LAB BLOOD ORDERABLES Final Resul t Performing Organization Address [facility]/ZIP Co de Phone Number [facility] [address] [place] [address], [place] [phone] * (ABNORMAL) Comprehensive metabolic panel (06/09/2025 11:34 AM EDT) [facility] Sodium 138 133 - 145 mmol/L LAB CHEMISTRY METHOD 06/09/2025 3:[address] [facility] Potassium 4.6 3.5 - 5.5 mmol/L LAB CHEMISTRY METHOD 06/09/2025 3:31 PM [facility] Chloride 107 96 - 110 mmol/L LAB CHEMISTRY METHOD 06/09/2025 3:31 PM [facility] CO2 25 21 - 32 mmol/L LAB CHEMISTRY METHOD 06/09/2025 3:[address] [facility] Anion Gap 6 3 - 11 LAB CHEMISTRY METHOD 06/09/2025 3:31 PM [facility] Glucose 63(L) 70 - 100 mg/dL LAB CHEMISTRY METHOD 06/09/2025 3:31 PM [facility] BUN 14 5 - 25 mg/dL LAB CHEMISTRY METHOD 06/09/2025 3:31 PM [facility] Creatinine 1.03 0.50 - 1.10 mg/dL LAB CHEMISTRY METHOD 06/09/2025 3:[address] [facility] eGFR 62 >=60 mL/min/1. 73m2 LAB CHEMISTRY METHOD 06/09/2025 3:[address] [facility] Comment:Calculation based on the Chronic Kidney Disease Epidemiology Collaboration (CKD-EPI) equation refit without adjustment for race. BUN/Creatinine Ratio 13.6 LAB CHEMISTRY METHOD 06/09/2025 3:[address] [facility] Calcium 8.6 8.5 - 10.5 mg/dL LAB CHEMISTRY METHOD 06/09/2025 3:31 PM [facility] AST (SGOT) 22 10 - 42 unit/L LAB CHEMISTRY METHOD 06/09/2025 3:31 PM [facility] ALT (SGPT) 21 10 - 60 unit/L LAB CHEMISTRY METHOD 06/09/2025 3:31 PM [facility] Alkaline Phosphatase 61 42 - 121 unit/L LAB CHEMISTRY METHOD 06/09/2025 3:[address] [facility] Total Protein 6.4 6.0 - 8.0 g/dL LAB CHEMISTRY METHOD 06/09/2025 3:31 PM [facility] Albumin 3.5 3.2 - 5.0 g/dL LAB CHEMISTRY METHOD 06/09/2025 3:31 PM [facility] Total Bilirubin 0.6 0.0 - 1.4 mg/dL LAB CHEMISTRY METHOD 06/09/2025 3:31 PM [facility] Blood Venous blood specimen / Unknown Venipuncture / Unknown 06/09/2025 11:34 AM EDT 06/09/2025 11:34 AM EDT us Cj Welsh NP LAB BLOOD ORDERABLES Final Resul t [facility] [address] [place] [address], * CT LUNG SCREENING LOW DOSE (05/29/2023 11:34 AM EDT) Anatomical Region Laterality Modality Computed Tomogra phy 05/29/2023 11:2 3 AM EDT Narrative 05/29/2023 11:34 AM EDT [facility] Diagnostic Imaging Department [address] [place] [address] Patient: ANETTE PETERSON /Age/Sex: 1965 - 57 - F Unit#: [id number] Location/Status: SPDICATLS/REG CLI Mnemonic/Ordering Site: [facility] Ordering Physician: CANDY GLASER MD CT Lung Screening Low Dose - 05/29/23 - 1126 Report Status:Signed History: History of smoking. Cancer screening Comparison: 05/09/2022 Technique: Helical volumetric imaging of the thorax was performed, using low- dose technique, without IV contrast. Iterative reconstruction technique Findings: Mediastinum: Normal sized heart and great vessels. No mediastinal lymphadenopathy. The central airways are clear. Lungs and Airways: Unchanged sub-5 mm pulmonary nodules. For example, there is a 3 mm pulmonary nodule in the left upper lobe (series 3 image 95). Emphysematous changes in the lungs. Atelectasis in the lung bases. Abdomen: This study was performed without contrast and with lower than standard dose. These factors reduce the sensitivity for detection of small lesions in the upper abdomen. Soft tissues and bones: Degenerative changes with no acute abnormality. Impression: No suspicious pulmonary nodule Lung Rads Category: 2- Benign - Continue annual screening with low-dose CT in 12 months Dictating Physician: FORTINO LOONEY MD Electronically Signed by: FORTINO LOONEY MD Dic Date/Time: 05/29/23 1131 Sign date/Time: 05/29/23 1134 Procedure Note Fortino Looney MD - 12/05/2023 [facility] Diagnostic Imaging Department [address] [place] [address] Patient: ANETTE PETERSON.O.B./Age/Sex: 1965 - 57 - F Unit#: [id number] Location/Status: [facility] CLI Mnemonic/Ordering Site: [facility] Ordering Physician: CANDY GLASER MD CT Lung Screening Low Dose - 05/29/23 - 1126 Report Status:Signed History: History of smoking. Cancer screening Comparison: 05/09/2022 Technique: Helical volumetric imaging of the thorax was performed, usinglow- dose technique, without IV contrast. Iterative reconstruction technique Findings: Mediastinum: Normal sized heart and great vessels. No mediastinal lymphadenopathy. The central airways are clear. Lungs and Airways: Unchanged sub-5 mm pulmonary nodules. For example,there is a 3 mm pulmonary nodule in the left upper lobe (series 3 image 95). Emphysematous changes in the lungs. Atelectasis in the lung bases. Abdomen: This study was performed without contrast and with lower thanstandard dose. These factors reduce the sensitivity for detection of small lesionsin the upper abdomen. Soft tissues and bones: Degenerative changes with no acute abnormality. Impression: No suspicious pulmonary nodule Lung Rads Category: 2- Benign - Continue annual screening with low-dose CTin 12 months Dictating Physician: FORTINO LOONEY MD Electronically Signed by: FORTINO LOONEY MD Dic Date/Time: 05/29/23 1131 Sign date/Time: 05/29/23 1134 Candy Glaser MD IMG CT PROCEDURES Final Result from Last 3 Months or Most Recently Relevant to Health Maintenance Insurance [email or web address] Care Teams Broadband Installer Relationship Specialty Start Date End Date Karlene Drake MD [address] [phone] PCP - General Internal Medicine 03/30/21
--- OUTSIDE RECORDS SUMMARY | 2025-07-06 16:21 | XMS_ITS | Encounter Summary ---
Author Organization [facility] Address [id number] [place] [id number] Care Team Providers Care Pollution Control Chemist Name Role Phone Karlene Drake MD Primary Care Provider [phone] Reason for Visit * Reason Onset Date Comments prior auth 06/19/2025 Encounter Details Date Type Department Care Team ([facility] st Contact Info) Description 06/19/2025 Telephone [facility] 175 [facility] [address] [place] [id number] Portia Johnson MD 175 [facility] [address] [place] [address] Social History Tobacco Use Types Packs/Day Years [...] Progress Notes * Ian Martinez MA - 06/19/2025 11:11 AM EDT Please send to pt pharmacy * Nilsa Barajas MA - 06/19/2025 11:02 AM EDT Per [facility] there a paid claim .PA request Is not require for Anoro Ellipta * Cristel Black - 06/19/2025 10:50 AM EDT Prior auth needed for Anoro Ellipta 62.5-25 mcg / act aerosol powder Ortiz: [id number] documented in this encounter Plan of Treatment Upcoming Encounters Date Type Department Care Team (Late st Contact Info) Description 07/28/2025 11:30 AM EDT Office Visit Internal Medicine - [place] [address] [phone] Cj Welsh NP [address] [address] 12/11/2025 9:45 AM EST Ancillary Procedure Pulmonolgy - [place] [address] [phone] 12/11/2025 10:30 AM EST Office Visit Pulmonolgy - [place] [address] [phone] Portia Johnson MD [address] [id number] documented as of this encounter Visit Diagnoses Not on filedocumented in this encounter Care Teams Pollution Control Chemist Relationship Specialty Start Date End Date Karlene Drake MD [address] [phone] PCP - General Internal Medicine 03/30/21 documented as of this encounter
--- NOTE | 2025-07-06 16:23 | PC.NURSE ---
Pt arrives from triage, she is tearful and sad. She reports +SI with not current plan due to the stress of her mother dying and now being homeless as they lived together. Pt has been staying with a friend. She also states her Daughter Parul kumar [phone] is also going through mental health issues and is also homeless. Pt is calm, she is oriented to the unit, provided a snack and drink. she admits to feeling like a burden to everyone and has no reason to live. she denies HI/AVH. SHe is seen by the care team and has a plan for IPLOC.
--- NOTE | 2025-07-06 19:05 | PC.NURSE ---
This RN assumed pt care @ 1900. Plan of care ongoing.
--- NOTE | 2025-07-06 19:13 | PC.NURSE ---
Pts daughter Parul @ [phone]
--- NOTE | 2025-07-06 19:57 | PC.NURSE ---
Med from 1700 not given. Message sent to previous RN regarding med. Med not in Pyxis, med requested. Plan of care ongoing.
[2025-07-06 20:04] VITALS: BP 121/72
[2025-07-06 20:07] VITALS: BP 121/72; PULSE 72
--- NOTE | 2025-07-06 20:11 | PC.NURSE ---
Pt ambulates to restroom and back into room with steady gait. Pt medicated per mar Plan of care ongoing.
--- NOTE | 2025-07-07 | PC.NURSE ---
Assumed care for pt at 2300. Pt is currently sleeping at the bedside. No apparent distress noted. Breaths are even regular and unlabored with equal chest rises. Monitoring is ongoing.
--- NOTE | 2025-07-07 | ECG_ITS ---
Test Reason : R/O PROLONGED QT Blood Pressure : */* mmHG Vent. Rate : 83 BPM Atrial Rate : 83 BPM P-R Int : 134 ms QRS Dur : 94 ms QT Int : 372 ms P-R-T Axes : 56 -15 45 degrees QTcB Int : 437 ms Sinus rhythm with occasional Premature ventricular complexes Otherwise normal ECG No previous ECGs available Referred By: Bill Lim Electronically Signed By: FELICIANO YEBOAH MD
--- NOTE | 2025-07-07 | ECG_ITS ---
Test Reason : cp Blood Pressure : */* mmHG Vent. Rate : 59 BPM Atrial Rate : 59 BPM P-R Int : 134 ms QRS Dur : 82 ms QT Int : 416 ms P-R-T Axes : 47 46 51 degrees QTcB Int : 411 ms Sinus bradycardia Otherwise normal ECG When compared with ECG of 07-Jul-2025 08:20, Premature ventricular complexes are no longer Present Questionable change in QRS axis Referred By: Amaya Franklin Electronically Signed By: FELICIANO YEBOAH MD
[2025-07-07 07:13] VITALS: BP 109/90; PULSE 109; TEMP 36.6; O2SAT 96
[2025-07-07 08:41] VITALS: BP 109/90
--- NOTE | 2025-07-07 10:36 | PHA.MEDREC ---
Addendum entered by Marilyn Egan RPh 07/07/25 10:55: reviewed by [facility]. Original Note: Pharmacy Consult ? Medication Reconciliation Pharmacy reviewed med rec done by nursing. Spoke with pt and she confirmed her medications. Pt states; she takes Gabapentin 600mg TID, claims shows 300mg TID and I called pt pharmacy and they confirmed they only have claims for Gabapentin 300mg TID, she takes her Combivent inhaler 1 Puff QID PRN for SOB/wheezing, she takes her Tizanidine 2mg tab QD instead of TID; stating that is a newer medication and takes it in the Am but forgets the other doses. She confirmed she takes a Vitamin D3 and Vitamin C tablet QD but doesn't remember the dose of them.
[2025-07-07 12:31] VITALS: BP 109/90
--- NOTE | 2025-07-07 13:48 | PC.NURSE ---
Patient upset with admission to Patient wants to go to [facility] Patient refusing transfer at this time Karoline on Care Team made aware
--- NOTE | 2025-07-07 14:13 | PC.NURSE ---
Patient agreed to go to Security assisted with transfer
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
[2025-07-07 15:24] VITALS: BP 130/67; PULSE 74; RESP 18; TEMP 36.3; O2SAT 97
[2025-07-07 16:15] VITALS: BP 110/60
[2025-07-07 20:00] VITALS: BP 95/55; PULSE 63; RESP 20; TEMP 36.4; O2SAT 95
[2025-07-08 08:00] VITALS: BP 102/74; PULSE 86; RESP 16; TEMP 36; O2SAT 95
[2025-07-08 08:33] VITALS: BP 102/74
[2025-07-08 08:54] LABS: Hemoglobin A1C 156.0239 umol/L; Total Hemoglobin (HGBA1C) 4201.5329 umol/L
[2025-07-08 09:07] LABS: Cholesterol 144 mg/dL (<200); HDL Cholesterol 51 mg/dL (>40); Magnesium 2.1 mg/dL (1.6-2.6); Triglycerides 224 mg/dL (<150)
[2025-07-08 09:20] LABS: Free T4 (Free Thyroxine) 0.90 ng/dL (0.71-1.85); Thyroid Stimulating Hormone 2.51 uIU/mL (0.32-4.0)
[2025-07-08 09:36] LABS: Folate 5.8 ng/mL (> or = 4.0); Vitamin B12 464 pg/mL (200-900)
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
[2025-07-08 14:33] VITALS: BP 118/76
--- NOTE | 2025-07-08 14:51 | PC.NURSE ---
[facility] level 108.9. Dr. Garsia aware. No new orders at this time.
[2025-07-08 18:15] VITALS: BP 110/66
[2025-07-08 20:00] VITALS: BP 125/72; PULSE 75; RESP 16; TEMP 36.9; O2SAT 95
[2025-07-09 07:54] VITALS: BP 119/71; PULSE 88; RESP 15; TEMP 36.4; O2SAT 93
--- NOTE | 2025-07-09 11:30 | HO.PSYCHPN ---
Subjective Subjective Date of Service: 07/09/25 Reason For Visit: Depression SI Subjective Notes: Conditional Voluntary Healthcare Proxy: No Guardianship: No Medical Problems Affecting Mental Status: No Interim History: Tolerating Vraylar thus far. Working on housing resources. Reports a poor night's sleep with Ambien- discussed use of Trazodone, by hx ineffective, discussed melatonin, also ineffective per pt report. Discussed difficulty with sleep by history due to trauma. Grieving loss of mother and . Medication Compliance: Yes Side effects from medications: No Attending Groups: Intermittent Review of Systems Acute medical concerns: No Review of Systems Review of Systems Denies Mental Status Exam Mental Status Exam Patient Appearance: Fatigued Patient Orientation: Person, Place, Time and Situation Level of Consciousness: Alert Patient Behavior: Talkative Mood Description: Depressed and Sad Affect Description: Flat Patient Cognition Impaired: No Ability to Follow Directions: Good Speech Pattern: Spontaneous Speech Memory Description: Intact Hallucinations: None Delusions: Not Present Perceptual Disturbances: Depersonalization and Derealization Thought Process: Rumination Thought Content: positive for Circumstantial and positive for Perseveration Judgement: Fair Diagnostics Vital Signs (24Hr): Vital Signs - 24 hr 07/08/25 14:33 07/08/25 18:15 07/08/25 20:00 Temperature 98.4 F Pulse Rate 75 Respiratory Rate 16 Blood Pressure 118/76 110/66 125/72 Pulse Oximetry 95 Oxygen Delivery Method Room Air 07/09/25 07:54 Temperature 97.6 F Pulse Rate 88 Respiratory Rate 15 Blood Pressure 119/71 Pulse Oximetry 93 Oxygen Delivery Method Room Air BMI result Body Mass Index 29.1 Labs 07/06/25 14:55 07/06/25 14:55 Labs: Laboratory Results - last 48 hr 07/08/25 08:32 Estimat Average Glucose 111 Hemoglobin A1c % 5.5 Magnesium 2.1 Triglycerides 224 H Cholesterol 144 LDL Cholesterol, Calc 49 HDL Cholesterol 51 Vitamin B12 464 Folate 5.8 TSH 2.51 Free T4 0.90 Medications Medications Current Medications Acetaminophen (Acetaminophen 325 Mg Tablet) 650 mg PO Q6H PRN PRN Reason: Headache/Pain, Scale 1-10 Al Hydroxide/Mg Hydroxide (Magnesium Hydrox/Alum Hydrox 30 Ml Oral.Susp) 30 ml PO Q6H PRN PRN Reason: Heartburn/Nausea Atorvastatin Calcium (Atorvastatin Calcium 20 Mg Tablet) 60 mg PO DAILY [facility] Last Admin: 07/09/25 08:38 Dose: 60 mg Cariprazine (Cariprazine Hcl 3 Mg Capsule) 3 mg PO DAILY [facility] Last Admin: 07/09/25 08:40 Dose: 3 mg Cefuroxime Axetil (Cefuroxime Axetil 500 Mg Tablet) 500 mg PO BID [facility] Stop: 07/13/25 20:59 Last Admin: 07/09/25 08:40 Dose: 500 mg Clonazepam (Clonazepam 1 Mg Tablet) 1 mg PO BID PRN PRN Reason: Anxiety Last Admin: 07/09/25 03:55 Dose: 1 mg Divalproex Sodium (Divalproex Sodium 500 Mg Tablet.) 500 mg PO BID [facility] Last Admin: 07/09/25 08:38 Dose: 500 mg Docusate Sodium (Docusate Sodium 100 Mg Capsule) 100 mg PO BID PRN PRN Reason: Constipation Fluoxetine HCl (Fluoxetine Hcl 20 Mg Capsule) 40 mg PO DAILY [facility] Last Admin: 07/09/25 08:40 Dose: 40 mg Gabapentin (Gabapentin 300 Mg Capsule) 300 mg PO TID [facility] Last Admin: 07/09/25 08:40 Dose: 300 mg Hydroxyzine HCl (Hydroxyzine Hcl 50 Mg Tablet) 50 mg PO TID PRN PRN Reason: Anxiety Last Admin: 07/09/25 03:55 Dose: 50 mg Magnesium Hydroxide (Milk Of Magnesia 30 Ml Oral.Susp) 30 ml PO DAILY PRN PRN Reason: Constipation Midodrine (Midodrine Hcl 2.5 Mg Tablet) 2.5 mg PO TIDWM [facility] Last Admin: 07/09/25 08:40 Dose: 2.5 mg Multivitamins/Vitamin C (Multivitamin Tablet) 1 tab PO DAILY [facility] Last Admin: 07/09/25 08:40 Dose: 1 tab Nicotine Polacrilex (Nicotine Polacrilex 2 Mg Gum) 4 mg BUCCAL Q2H PRN PRN Reason: Nicotine Cravings Non-Formulary Medication (Umeclidinium-Vilanterol [Anoro Ellipta]) 1 each INHALE DAILY [facility] Omeprazole (Omeprazole 40 Mg Capsule.) 40 mg PO DAILY@0630 [facility] Last Admin: 07/09/25 06:32 Dose: 40 mg Tizanidine HCl (Tizanidine Hcl 4 Mg Tablet) 2 mg PO TID [facility] Last Admin: 07/09/25 08:39 Dose: 2 mg Trazodone HCl (Trazodone Hcl 50 Mg Tablet) 50 mg PO BEDTIME MRX1 PRN PRN Reason: Insomnia Zolpidem Tartrate (Zolpidem Tartrate 5 Mg Tablet) 10 mg PO BEDTIME PRN PRN Reason: Insomnia Last Admin: 07/08/25 20:18 Dose: 10 mg Allergies Allergies Allergy/AdvReac Type Severity Reaction Status Date / Time hydrocodone (HYDROCODONE) AdvReac Mild ITCHING Verified 07/06/25 15:39 Assessment & Plan Assessment & Plan (1) Bipolar disorder: Status: Acute Code(s): F31.9 - Bipolar disorder, unspecified (2) Grief: Status: Acute Code(s): F43.21 - Adjustment disorder with depressed mood Plan Admit to M5, CV, 15 minute checks Collateral Contact Encourage milieu work Diagnostics as needed Increases atorvastatin to 60 mg daily Vraylar 3 mg am Discharge planning Team will give pt resources to begin to make calls for housing. 07/09: Continue tx Encouraged milieu participation Reason for continued inpatient stay Substantial Risk for: rapid decompensation Time Spent With Patient Time: Total time managing care of this patient today ____ minutes.
[2025-07-09 11:47] VITALS: BP 103/56
[2025-07-09 16:08] VITALS: BP 105/56
[2025-07-09 20:00] VITALS: BP 114/83; PULSE 68; RESP 16; TEMP 37.1; O2SAT 98
[2025-07-10 08:55] VITALS: BP 125/71; PULSE 71; TEMP 36.6; O2SAT 100
--- NOTE | 2025-07-10 09:51 | HO.PSYCHPN ---
Subjective Subjective Date of Service: 07/10/25 Reason For Visit: Depression SI Subjective Notes: Conditional Voluntary Healthcare Proxy: No Guardianship: No Medical Problems Affecting Mental Status: No Interim History: Pt reports she has found a place to live on a temporary basis- with her daughter and daughters friend. Reports daughter's boyfriend will be coming home on 07/18 and they plan to purchase an RV to live in. Pt asking for discharge. Denies SI,HI, AH,VH. Reports she is tolerating Vraylar without adverse effects. Medication Compliance: Yes Side effects from medications: No Attending Groups: Intermittent Review of Systems Acute medical concerns: No Review of Systems Review of Systems Denies Mental Status Exam Mental Status Exam Patient Appearance: Appropriate Patient Orientation: Person, Place, Time and Situation Level of Consciousness: Alert Patient Behavior: Talkative Mood Description: Constricted Affect Description: Constricted Patient Cognition Impaired: No Ability to Follow Directions: Good Speech Pattern: Spontaneous Speech Memory Description: Intact Hallucinations: None Delusions: Not Present Perceptual Disturbances: Depersonalization and Derealization Thought Process: Rumination Thought Content: positive for Circumstantial Judgement: Good Diagnostics Vital Signs (24Hr): Vital Signs - 24 hr 07/09/25 11:47 07/09/25 16:08 07/09/25 20:00 Temperature 98.7 F Pulse Rate 68 Respiratory Rate 16 Blood Pressure 103/56 L 105/56 L 114/83 Pulse Oximetry 98 Oxygen Delivery Method Room Air 07/10/25 08:55 Temperature Pulse Rate Respiratory Rate Blood Pressure 125/71 Pulse Oximetry Oxygen Delivery Method BMI result Body Mass Index 29.1 Labs 07/06/25 14:55 07/06/25 14:55 Medications Medications Current Medications Acetaminophen (Acetaminophen 325 Mg Tablet) 650 mg PO Q6H PRN PRN Reason: Headache/Pain, Scale 1-10 Al Hydroxide/Mg Hydroxide (Magnesium Hydrox/Alum Hydrox 30 Ml Oral.Susp) 30 ml PO Q6H PRN PRN Reason: Heartburn/Nausea Atorvastatin Calcium (Atorvastatin Calcium 20 Mg Tablet) 60 mg PO DAILY [facility] Last Admin: 07/10/25 08:54 Dose: 60 mg Cariprazine (Cariprazine Hcl 3 Mg Capsule) 3 mg PO DAILY [facility] Last Admin: 07/10/25 08:54 Dose: 3 mg Cefuroxime Axetil (Cefuroxime Axetil 500 Mg Tablet) 500 mg PO BID [facility] Stop: 07/13/25 20:59 Last Admin: 07/10/25 08:54 Dose: 500 mg Clonazepam (Clonazepam 1 Mg Tablet) 1 mg PO BID PRN PRN Reason: Anxiety Last Admin: 07/10/25 09:16 Dose: 1 mg Divalproex Sodium (Divalproex Sodium 500 Mg Tablet.) 500 mg PO BID [facility] Last Admin: 07/10/25 08:55 Dose: 500 mg Docusate Sodium (Docusate Sodium 100 Mg Capsule) 100 mg PO BID PRN PRN Reason: Constipation Fluoxetine HCl (Fluoxetine Hcl 20 Mg Capsule) 40 mg PO DAILY [facility] Last Admin: 07/10/25 08:54 Dose: 40 mg Gabapentin (Gabapentin 300 Mg Capsule) 300 mg PO TID [facility] Last Admin: 07/10/25 08:54 Dose: 300 mg Hydroxyzine HCl (Hydroxyzine Hcl 50 Mg Tablet) 50 mg PO TID PRN PRN Reason: Anxiety Last Admin: 07/09/25 03:55 Dose: 50 mg Magnesium Hydroxide (Milk Of Magnesia 30 Ml Oral.Susp) 30 ml PO DAILY PRN PRN Reason: Constipation Midodrine (Midodrine Hcl 2.5 Mg Tablet) 2.5 mg PO TIDWM [facility] Last Admin: 07/10/25 08:55 Dose: 2.5 mg Multivitamins/Vitamin C (Multivitamin Tablet) 1 tab PO DAILY [facility] Last Admin: 07/10/25 08:54 Dose: 1 tab Nicotine Polacrilex (Nicotine Polacrilex 2 Mg Gum) 4 mg BUCCAL Q2H PRN PRN Reason: Nicotine Cravings Non-Formulary Medication (Umeclidinium-Vilanterol [Anoro Ellipta]) 1 each INHALE DAILY [facility] Omeprazole (Omeprazole 40 Mg Capsule.) 40 mg PO DAILY@0630 [facility] Last Admin: 07/10/25 05:48 Dose: 40 mg Tizanidine HCl (Tizanidine Hcl 4 Mg Tablet) 2 mg PO TID [facility] Last Admin: 07/10/25 08:53 Dose: 2 mg Trazodone HCl (Trazodone Hcl 50 Mg Tablet) 50 mg PO BEDTIME MRX1 PRN PRN Reason: Insomnia Zolpidem Tartrate (Zolpidem Tartrate 5 Mg Tablet) 10 mg PO BEDTIME PRN PRN Reason: Insomnia Last Admin: 07/09/25 20:51 Dose: 10 mg Allergies Allergies Allergy/AdvReac Type Severity Reaction Status Date / Time hydrocodone (HYDROCODONE) AdvReac Mild ITCHING Verified 07/06/25 15:39 Assessment & Plan Assessment & Plan (1) Bipolar disorder: Status: Acute Code(s): F31.9 - Bipolar disorder, unspecified (2) Grief: Status: Acute Code(s): F43.21 - Adjustment disorder with depressed mood Plan Admit to M5, CV, 15 minute checks Collateral Contact Encourage milieu work Diagnostics as needed Increases atorvastatin to 60 mg daily Vraylar 3 mg am Discharge planning Team will give pt resources to begin to make calls for housing. 07/10: Valproate level 9.12 Discharge 07/11 Tolerating Vraylar thus far. Patient educated on: therapeutic strategies Informed Consent: understands Reason for continued inpatient stay Substantial Risk for: stable for discharge Time Spent With Patient Time: Total time managing care of this patient today ____ minutes.
[2025-07-10 16:10] VITALS: BP 136/78
[2025-07-10 20:00] VITALS: BP 125/70; PULSE 87; RESP 16; TEMP 37.2; O2SAT 91
[2025-07-11 08:03] VITALS: BP 132/70
--- NOTE | 2025-07-11 10:15 | P.DS_ITS ---
DS: Providers Provider Date of Service: 07/11/25 Date of admission: 07/07/25 12:31 Date of discharge: 07/11/25 Primary care physician: Karlene Drake MD Admitting clinician: Amaya Franklin Attending physician on admission: Demetri Goodman Attending physician on discharge: Demetri Goodman Discharging clinician: Amaya Franklin DS: Diagnosis Discharge Diagnosis (1) Bipolar disorder: Status: Acute (2) Grief: Status: Acute DS: Medications Discharge Medications Home Medications: Home Medications ?Medication ?Instructions ?Recorded ?Confirmed hydroxyzine pamoate 50 mg capsule 50 mg PO TID PRN anx iety 07/06/25 07/07/25 ipratropium 20 mcg-albuterol 100 1 puff inhalation QID PRN 07/06/25 07/07/25 mcg/actuation mist for inhalation Shortness Of Breath Or Wheezing (Combivent Respimat) midodrine 2.5 mg tablet 2.5 mg PO TID 07/06/2507/07 omeprazole 40 mg capsule,delayed 40 mg PO DAILY@0630 0 07/06/25 07/07/25 release tizanidine 2 mg tablet 2 mg PO DAILY 07/06/2507/07 umeclidinium 62.5 mcg-vilanterol 1 ea inhalation DAILY 07/06/25 07/07/25 25 mcg/actuation powdr for inhalation (Anoro Ellipta) zolpidem 10 mg tablet 10 mg PO BEDTIME PRN Insomni a 07/06/25 07/07/25 bismuth subsalicylate 262 mg 2 tab PO Q1H PRN Loose St ool 07/07/25 07/07/25 chewable tablet (Pepto-Bismol) byzamfiw-yllf-uhmg 8 mg-folic 400 1 tab PO DAILY 07/0707/07/25 mcg-K 50 mcg-lutein 300 mcg tablet (Centrum Silver Women) Previous Rx's ?Medication ?Instructions ?Recorded atorvastatin 20 mg tablet 60 mg (3 x 20 mg) PO DAILY # 90 tabs 07/11/25 cariprazine 3 mg capsule (Vraylar) 3 mg PO DAILY #30 c aps 07/11/25 clonazepam 1 mg tablet 1 mg PO BID PRN Anxiety #14 tabs 07/11/25 divalproex 500 mg tablet,delayed 500 mg PO BID #60 tab s 07/11/25 release docusate sodium 100 mg capsule 100 mg PO BID PRN Const ipation #60 07/11/25 caps fluoxetine 40 mg capsule 40 mg PO DAILY #30 caps 06/30 12/24 gabapentin 300 mg capsule 300 mg PO TID #90 caps 07/11 Mental Status Exam Mental Status Exam Patient Appearance: Appropriate Patient Orientation: Person, Place, Time and Situation Level of Consciousness: Alert Patient Behavior: Talkative Mood Description: Constricted Affect Description: Constricted Patient Cognition Impaired: No Ability to Follow Directions: Good Speech Pattern: Spontaneous Speech Memory Description: Intact Hallucinations: None Delusions: Not Present Perceptual Disturbances: Depersonalization and Derealization Thought Process: Rumination Thought Content: positive for Circumstantial Judgement: Good Data Data Completed and Pending Completed studies during hospitalization [Text1]: 07/06/25 07/08/25 14:55 08:32 WBC 9.7 RBC 5.18 Hgb 16.4 H Hct 47.9 H MCV 92.5 MCH 31.7 MCHC 34.2 RDW 14.8 Plt Count 363 MPV 10.0 Immature Gran % (Auto) 0.7 H Neut % (Auto) 53.7 Lymph % (Auto) 30.8 [place] % (Auto) 12.9 H Eos % (Auto) 1.3 Baso % (Auto) 0.6 Lymph # (Auto) 3.0 [place] # (Auto) 1.3 H Eos # (Auto) 0.1 Baso # (Auto) 0.1 Abs Immat Gran (auto) 0.07 H Absolute Neuts (auto) 5.2 Absolute Nucleated RBC 0.000 Nucleated RBC % (auto) 0.0 Sodium 143 Potassium 4.2 Chloride 104 Carbon Dioxide 25 Anion Gap 18 BUN 11 Creatinine 1.03 Estim Creat Clear Calc 55.4 Estimated GFR 54 Random Glucose 89 Estimat Average Glucose 111 Hemoglobin A1c % 5.5 Calcium 9.6 Magnesium 2.1 Total Bilirubin 0.5 AST 22 ALT 21 Alkaline Phosphatase 66 Total Protein 7.6 Albumin 4.8 Triglycerides 224 H Cholesterol 144 LDL Cholesterol, Calc 49 HDL Cholesterol 51 Vitamin B12 464 Folate 5.8 TSH 2.51 Free T4 0.90 Urine Color Yellow Urine Appearance Cloudy Urine pH 6.5 Ur Specific [place] 1.015 Urine Protein Negative Urine Glucose (UA) Negative Urine Ketones Negative Urine Blood Negative Urine Nitrite Positive H Ur Leukocyte Esterase Trace H Urine RBC 0-2 Urine WBC 6-10 H Ur Squamous Epith Cells 3-5 Urine Bacteria 4+ Hyaline Casts 0-2 Urine Opiates Screen Not Detected Ur Buprenorphine Scrn Not Detected Ur Oxycodone Screen Not Detected Urine Methadone Screen Not Detected Urine Fentanyl Screen Not Detected Ur Barbiturates Screen Not Detected Ur Phencyclidine Scrn Not Detected Ur Amphetamines Screen Not Detected U Benzodiazepines Scrn Not Detected Urine Cocaine Screen Not Detected U Marijuana (THC) Screen Not Detected Ethyl Alcohol < 10 07/06/25 Unknown Urine clean catch - Clean Catch Midstream Urine Culture - Final Escherichia coli DS: Summary Hospital Course Hospital Course: Admission to adult psychiatry for exacerbation of depression with SI in the context of the recent of her mother and losing her housing as a result. Pt also lost her in 2022 and felt the loss of her mother compounded issues as both her closest friends had . Pt reports a history of bipolar disorder with labile moods which she reports could be managed with more efficacy. Medications were evaluated and adjusted. Vraylar trial was initiated with PA sent to insurance for continued out pt use. Pt was given housing resources to contact to begin community connections. Pt signed a three day notice when she was informed by her daughter that she could stay with her at a friends home and when daughter's boyfriend returns home on 07/18 they will purchase an RV for housing. Pt will return to [facility] for out pt care. She is aware that she may call/return at any time should her sx recur. We will connect on 08/05 to discuss refills prior to her [facility] appt. Status at Discharge Functional status at discharge: independent ambulation Overall status at discharge: patient is progressing back to baseline Time Spent with Patient Time attestation: Total time managing care of this patient today ____ minutes. Time spent: Less than 30 minutes Discharge Plan Discharge Anticipated Discharge Date/Time: 07/11/25 06:16 Patient Disposition: Xfer Other Discharge Diagnosis: Bipolar Disorder Grief Referrals: Therapy: Merlyn Zheng ([employer] [facility]) [Other] - 07/16/25 3:00 pm Referral Note: Appointment is in person at the office Psych Prescriber: Heather Medina ([facility]) [Other] - 08/19/25 9:00 am Referral Note: Telehealth-you will receive a texted link to join virtual or phone call at time of appointment For refill/psych follow-up: Amaya Atwood ([facility]) [Other] - 08/05/25 Referral Note: Call [facility] on August 05 to follow up on medication and receive a refill until your upcoming appointment with Karlene Mixon MD [Primary Care Provider, Internal Medicine] - 1 Week Discharge Medications: New docusate sodium 100 mg Capsule 100 mg PO BID PRN (Reason: Constipation) Qty: 60 0RF Vraylar 3 mg Capsule 3 mg PO DAILY Qty: 30 0RF atorvastatin [Lipitor] 40 mg tablet 60 mg PO DAILY Qty: 135 0RF Continued tizanidine 2 mg tablet 2 mg PO DAILY hydroxyzine pamoate 50 mg capsule 50 mg PO TID PRN (Reason: anxiety) omeprazole 40 mg capsule,delayed release(DR/EC) 40 mg PO DAILY@0630 midodrine 2.5 mg tablet 2.5 mg PO TID zolpidem 10 mg tablet 10 mg PO BEDTIME PRN (Reason: Insomnia) umeclidinium-vilanterol [Anoro Ellipta] 62.5-25 mcg/actuation blister with device 1 ea inhalation DAILY Combivent Respimat 20-100 mcg/actuation mist 1 puff inhalation QID PRN (Reason: Shortness Of Breath Or Wheezing) bismuth subsalicylate [Pepto-Bismol] 262 mg Tablet,Chewable 2 tab PO Q1H PRN (Reason: Loose Stool) Rx Instructions: do not exceed 16 tabs per 24 hrs Centrum Silver Women 8 mg iron-400 mcg-50 mcg Tablet 1 tab PO DAILY fluoxetine 40 mg capsule 40 mg PO DAILY Qty: 30 0RF clonazepam 1 mg tablet 1 mg PO BID PRN (Reason: Anxiety) Qty: 14 4RF divalproex 500 mg tablet,delayed release (DR/EC) 500 mg PO BID Qty: 60 0RF gabapentin 300 mg capsule 300 mg PO TID Qty: 90 0RF Discontinued atorvastatin 40 mg tablet 40 mg PO DAILY Discharge Orders: Discharge Order (Routine); Ordered 07/11/25 Ordered By: Amaya M [place] Diet: Advance to usual diet Activity on Discharge: As tolerated Stand Alone Forms: Patient Portal Discharge page, Community Support Print Language: Citizen Of [place] Care Plan Goals: Mood and Behavioral Stabilization Health Concerns: Mood and Behavioral Stabilization Plan of Treatment: Take medications as directed Attend scheduled appointments Assessment: MLEISSA Howell SI,CRUZ,VH Discharge Date/Time: 07/11/25 11:24
== END 2025-07-11 11:24 | disposition other institution (70) | DRG 753 ==
LOC: HO.ED 07-07 13:12 → HO.PM5 07-07 13:14
PROVIDERS: Admitting Provider Clinical Nurse Specialist Psychiatric/Mental Health, Adult; Emergency Provider Emergency Medicine; PCP Internal Medicine; Visit Provider Clinical Nurse Specialist Psychiatric/Mental Health, Adult
DX: F31.9 Bipolar disorder, unspecified (principal); R45.851 Suicidal ideations; F43.21 Adjustment disorder with depressed mood; F17.210 Nicotine dependence, cigarettes, uncomplicated; Z63.4 Disappearance and death of family member; Z71.6 Tobacco abuse counseling; Z59.811 Housing instability, housed, with risk of homelessness; Z91.51 Personal history of suicidal behavior; Z79.899 Other long term (current) drug therapy
CPT/HCPCS: 36415; 80053; 80061; 80307; 81001; 82607; 82746; 83036; 83735; 84439; 84443; 85025; 87086; 87088; 87186; 93005; 99285; S9485

== ENCOUNTER → 2025-07-07 08:20 | Outpatient (BNV) | payer OTHER, SELFPAY | PROVIDERS: Emergency Provider Emergency Medicine; PCP Internal Medicine; Visit Provider Internal Medicine Cardiovascular Disease | DX: I49.3 Ventricular premature depolarization (principal) | CPT/HCPCS: 93010 ==

== ENCOUNTER → 2025-07-07 12:31 | Outpatient (BNV) | payer OTHER, SELFPAY | PROVIDERS: Admitting Provider Clinical Nurse Specialist Psychiatric/Mental Health, Adult; Emergency Provider Emergency Medicine; PCP Internal Medicine; Visit Provider Clinical Nurse Specialist Psychiatric/Mental Health, Adult | DX: F31.9 Bipolar disorder, unspecified (principal); F43.21 Adjustment disorder with depressed mood | CPT/HCPCS: 90792 ==

== ENCOUNTER 2025-07-14 08:41 | Inpatient (IN) | payer OTHER, SELFPAY ==
--- OUTSIDE RECORDS SUMMARY | 2025-07-13 18:05 | XMS_ITS | Encounter Summary ---
Author Organization [facility] Address [address] [place] [address] Care Team Providers Care Shift Commander Name Role Phone Karlene Drake MD Primary Care Provider [phone] Reason for Visit * Reason Comments Shaking Encounter Details Date Type Department Care Team (Late st Contact Info) Description 07/13/2025 6:05 PM EDT - 07/13/2025 9:54 PM EDT Emergency [facility] Emergency [address] [place] [phone] Yin Malik DO [address] [place] [address] Nadir De León MD [address] [place] [address] Depression with suicidal ideation (Primary Dx); Housing instability Discharge Disposition: Home or Self Care Social [...] Sign Reading Time Taken Comments Blood Pressure 128/80 07/13/2025 9:15 PM EDT Pulse 90 07/13/2025 9:15 PM EDT Temperature 36.5 C (97.7 F) 07/13/2025 9:15 PM EDT Respiratory Rate 18 07/13/2025 9:15 PM EDT Oxygen Saturation 99% 07/13/2025 9:15 PM EDT Inhaled Oxygen Concentration - - Weight 79.4 kg (175 lb) 07/13/2025 5:40 PM EDT Height 160 cm (5' 3 ) 07/13/2025 5:40 PM EDT Body Mass Index 31 07/13/2025 5:40 PM EDT documented in this encounter Discharge Instructions * Discharge Instructions* Nadir De León MD - 07/13/2025 9:51 PM EDT Your work-up in the emergency department showed no findings concerning enough to require admission to the hospital. You should still follow-up with a primary care physician as soon as possible to review your labs/imaging and discuss any non-emergent findings from your visit today that may require further testing as an outpatient. If you have been referred to see a specialist, contact information is provided above. Call as soon as possible to schedule follow up. If you were prescribed any medications, please take as directed. documented in this encounter Medications at Time of Discharge atorvastatin (LIPITOR) 40 mg tablet Take 1 tablet (40 mg total) by mouth 1 (one) time each day. 90 tablet 1 01/20/2025 clonazePAM (KlonoPIN) 2 mg tablet Take 1 tablet (2 mg total) by mouth 2 (two) times a day. Max Daily Amount: 4 mg Combivent Respimat 20-100 mcg/actuation inhaler INHALE ONE PUFF BY MOUTH FOUR TIMES A DAY NEEDED FOR FOR SHORTNESS OF BREATH 4 g 1 03/03/2025 divalproex (DEPAKOTE) [address] tablet Take 1 tablet (500 mg total) by mouth 3 (three) times a day. Do not crush, chew, or split. fluticasone HFA (Flovent HFA) 110 mcg/actuation inhaler Inhale 2 puffs by mouth 2 (two) times a day. Rinse mouth with water after use to reduce aftertaste and incidence of candidiasis. Do not swallow. 1 each 11 06/09/2025 08/11/202 6 gabapentin (NEURONTIN) 300 mg capsule Take 1 capsule (300 mg total) by mouth 3 (three) times a day if needed (pain). 90 each 5 06/09/2025 6 omeprazole (PriLOSEC) [address] capsuleIndication s:Gastroesophagea [...] time each day. 3 each 4 06/26/2025 6 zolpidem (AMBIEN) 10 mg tablet Take 1 tablet (10 mg total) by mouth 1 (one) time each day in the evening. Max Daily Amount: 10 mg documented as of this encounter Discharge Disposition Disposition Code Departure Means Destination Comment s Home or Self Care documented in this encounter Progress Notes * Nadir De León MD - 07/13/2025 9:54 PM EDT Received sign out from Dr. Malik. See ED course below. Vitals: 07/13/255 BP: 128/80 Pulse: 90 Resp: 18 Temp: 36.5 ??C (97.7 ??F) SpO2: 99% ED Course as of 07/13/252216 Sun Jul 13, 20251948 Sign out: Pt pending crisis evaluation in the am [BM] 2147 Pt cleared from crisis. She denied SI/HI when crisis team spoke with her. She states she wanted housing, social work discussed steps she needs to take to establish housing. She does not meet inpatient criteria. [BM] ED Course User Index [BM] Nadir De León MD Clinical Impressions as of 07/13/252216 Depression with suicidal ideation Housing instability * Tereso Benjamin RN - 07/13/2025 9:52 PM EDT Pt became aware of d/c plans from and changed into her clothing and ambulated off unit with steady gait without allowing staff to assess vitals or print AVS for her. aware. * Renetta Dozier RN - 07/13/2025 5:44 PM EDT Pt presents to ed with multiple complaints. Pt reports not feeling like her self and reports feeling more depressed, shakiness since mother passed in April, and stomach ache with diarrhea for one week. Pt was d/c Monday from [facility] behavioral health unit. Pt reports past SI attempt over a year ago, attempted overdose on anxiety rx. Pt reports she has been sleeping in her car d/t recent homelessness. Pt seeking a crisis eval. documented in this encounter Consult Notes * John Marion - 07/13/2025 9:54 PM EDTAssociated Order(s): IP CONSULT TO AIRCRA[employer] LAUNCH AND RECOVERY TECHNICIAN Images from the original note were not included. Behavioral Health Services - Crisis Assessment Important times Time of arrival: 18:05 Time of referral: 19:59 Time of readiness: 20:04 Time assessment started: 20:45 Time of disposition: 21:24 Location: Emergency Room (ER) Consulted case with: Anne Marie Chang LCSW Insurance information: Insurance: [employer] Verified by: [employer] - John Marion Reason for Consultation / Presenting Problem: Anette Teran is being seen today for a consultiveservice at the request of No att. providers found to assess risk and identify appropriate level of care. Patient arrived due to shakiness and feeling more depressed after her mother . Patient reported to [facility] that she has been living in her car since her mother in April as patient and her mom were sharing an apartment and she was unable to continue to afford it after her mom's . She also discussed other life stressors, including her having in 2022 and subsequently patient attempting suicide that year. She denied SI, reporting that her daughter is the reason she stays alive. Patient also denied HI/AH/VH. When asked what patient would like from crisis, she reported housing . History of Present Illness: Anette is a 59 y.o. female with Chief Complaint Patient presents with Shaking Social/Educational History: Guardian - if Yes, provide contact information: No [place] Status: No State Agency Involvement: None Mirza's Order: No Marital Status: Alternative Placement Details: None Living Situation for patient: Homeless - Patient reported that she is currently living in her car. She stated that she has a group social worker at [facility], who has been helping her with section 8. Household Members/Age: Patient is unhoused and does not live with anybody. Friendships/Family/Social Peer Support/Relationships: Patient reported to have a good relationship with her daughter. Highest level of education: High school Comments (Include Learning Needs): None Occupation: Disabled Employment/Extracurricular Activities/Hobbies: Patient reported that she likes crafting Limitations of Daily Activities: None Strengths/Supports: Patient has stable income. Patient is able to access her basic needs. Patient is receiving support for housing and mental health from [facility]. Patient is medication compliant. Collaterals, contact information, and engagement level: Therapist: [facility] - Patient reported that she needs to have her intake appointment this week. Psychiatrist: Unknown PCP: Unknown Family: Daughter, Thalia: Patient did not provide contact information Other: None reported Mental Status Speech: WNL Eye Contact: WNL Motor Activity: WNL Mood: Depressed Affect: Flat Sleep: Poor Appetite: Fair Memory: WNL Attention / Concentration: WNL Behavior: Cooperative Appearance: Hallucinations: None Delusions: None Thought Content: WNL SI: Denied HI: Denied Thought Process: WNL Orientation Impairment: None Insight: WNL Judgment: Poor Impulse Control: Fair Substance Use History (Including family history): Patient reported that she used cocaine in high school but has since not used it or any other substance. Utox Results: Patient left AMA before utox resulted. BAL was normal. Substance Use Treatment History: Patient denied substance use treatment history. Mental Health Treatment History: Outpatient Mental Health Treatment: Patient reported that she is in the process of obtaining therapy from [facility]. Previous or Current Psychological Diagnosis: Patient reported to having been diagnosed with bipolar, depression, and anxiety. Prior Psychiatric Hospitalizations/Residential Treatment Facilities: Patient was most recently at [facility], having been discharged last week. Other Comments Regarding Mental Health Treatment History: None Mental Health Concerns in Family: Patient reported that her mother was diagnosed with bipolar and depression. She stated that her daughter has been diagnosed with depression and ADHD. Trauma History: Patient reported that in 2022 her and she then attempted suicide. She stated that her mother in April, leaving her unhoused, and a few weeks ago her bird . Medications: Scheduled Meds: Continuous Infusions: PRN Meds: Risk Assessment: Self-Harm: None Suicidal Behavior: None Homicidal Behavior: None Physical Assault: None Physical Aggression: None Property Damage: None Verbal Aggression: None Family history of suicide: Patient reported that her mother has a history of suicide. Protective Factors: Patient has stable income. Patient is able to access her basic needs. Patient is receiving support for housing and mental health from [facility]. Patient is medication compliant. Risk Factors: Patient is unhoused. Patient has unresolved trauma. Suicide Risk: Based on patient's history and current presentation, their level of risk for intentional lethal harm is considered Low Safety Plan Completed: no Patient is aware that she can return to [facility] should she become worse. Interventions: Risk/crisis assessment, active listening, empathetic listening, support, resources offered Response to interventions: Patient was cooperative, engaged, and aligned with speaking with [facility]. DSM-5TR Diagnosis: F32.9 Unspecified Depressive Disorder Plan: Based on the information above, patient does not meet criteria for psychiatric inpatient admission.Upon being told that she is clear from crisis and would be discharge, patient stated that she will kill somebody else. [facility] reminded patient she denied HI. Patient then stated that she will kill herself. Due to her SI being for secondary gain of housing, patient continues to not meet criteria for inpatient. Upon discharge, patient would benefit from following up with [facility] and other providers. Recommendations were discussed with requesting provider. It was a pleasure to assist Anette Teran here at [facility]. This report is written and finalized by: John Marion Behavioral Health Specialist [facility] (Tel): [phone] / : [phone] documented in this encounter Plan of Treatment Upcoming Encounters Date Type Department Care Team (Late st Contact Info) Description 07/28/2025 11:30 AM EDT Office Visit Internal Medicine - [place] [address] [place] [address] Cj Welsh NP [address] [place] [address] 12/11/2025 9:45 AM EST Ancillary Procedure Pulmonolgy - [place] [address] [place] [address] 12/11/2025 10:30 AM EST [facility] [place] [address] [place] [phone] Portia Johnson MD [address] [place] [address] documented as of this encounter Procedures Procedure Name Priority Date/Time Associated Diagnosis Comments MANUAL DIFFERENTIAL - SYSMEX WAM STAT 07/13/2025 6:39 PM EDT CBC WITH AUTO DIFFERENTIAL STAT 07/13/2025 6:39 PM EDT CBC AND DIFFERENTIAL STAT 07/13/2025 6:39 PM EDT ETHANOL STAT 07/13/2025 6:39 PM EDT ACETAMINOPHEN LEVEL STAT 07/13/2025 6 :39 PM EDT SALICYLATE LEVEL STAT 07/13/2025 6:39 PM EDT BASIC METABOLIC PANEL STAT 07/13/2025 6:39 PM EDT documented in this encounter Results * (ABNORMAL) Manual differential (07/13/2025 6:39 PM EDT) Neutrophils % 54.0 % LAB HEMETOLOGY METHOD 07/13/2025 9:01 PM [facility] Bands % 2.0 % LAB HEMETOLOGY METHOD 07/13/2025 9:01 PM [facility] Lymphocytes % 23.0 % LAB HEMETOLOGY METHOD 07/13/2025 9:01 PM [facility] Reactive Lymphocyte 2.00 % LAB HEMETOLOGY METHOD 07/13/2025 9:01 PM [facility] Monocytes % 17.0 % LAB HEMETOLOGY METHOD 07/13/2025 9:01 PM [facility] Eosinophils % 2.0 % LAB HEMETOLOGY METHOD 07/13/2025 9:01 PM [facility] Basophils % 1.0 % LAB HEMETOLOGY METHOD 07/13/2025 9:01 PM [facility] Neutrophils Absolute Manual 5.51 1.50 - 7.00 K/mcL LAB HEMETOLOGY METHOD 07/13/2025 9:01 PM [facility] Bands Absolute Manual 0.20(H) 0.00 - 0.00 K/mcL LAB HEMETOLOGY METHOD 07/13/2025 9:01 PM [facility] Lymphocytes Absolute 2.35 1.00 - 5.00 K/mcL LAB HEMETOLOGY METHOD 07/13/2025 9:01 PM [facility] Reactive Lymph Abs Manual 0.20(H) 0.00 - 0.00 lym LAB HEMETOLOGY METHOD 07/13/2025 9:01 PM [facility] Monocytes Absolute Manual 1.73(H) 0.20 - 1.00 K/mcL LAB HEMETOLOGY METHOD 07/13/2025 9:01 PM [facility] Eosinophils Absolute Manual 0.20 0.00 - 0.50 K/mcL LAB HEMETOLOGY METHOD 07/13/2025 9:01 PM EDT [facility] Basophils Absolute Manual 0.10 0.00 - 0.20 K/[facility] LAB HEMETOLOGY METHOD 07/13/2025 9:01 PM EDT [facility] Rbc Morphology Consistent with indices Consistent with indices, Normal for LAB HEMETOLOGY METHOD 07/13/2025 9:01 PM EDT [facility] Comment:RBC: Morphology agre es with CBC Platelet Morphology - WAM See Note(A) Normal LAB HEMETOLOGY METHOD 07/13/2025 9:01 PM EDT [facility] Comment:PLT: Normal Blood Venous blood specimen / Unknown Venipuncture / Unknown 07/13/2025 6:39 PM EDT 07/13/2025 8:17 PM EDT Yin Malik DO LAB BLOOD ORDERABLES Final Re sult [facility] [address] [place] [address], * CBC auto differential (07/13/2025 6:39 PM EDT) WBC 10.2 4.8 - 10.8 K/[facility] LAB HEMETOLOGY METHOD 07/13/2025 9:01 PM EDT [facility] RBC 4.60 3.80 - 4.80 M/mcL LAB HEMETOLOGY METHOD 07/13/2025 9:01 PM EDT [facility] Hemoglobin 14.3 11.5 - 16.0 g/dL LAB HEMETOLOGY METHOD 07/13/2025 9:01 PM EDT [facility] Hematocrit 44.4 35.0 - 47.0 % LAB HEMETOLOGY METHOD 07/13/2025 9:01 PM EDT [facility] MCV 95.7 79.0 - 98.0 FL LAB HEMETOLOGY METHOD 07/13/2025 9:01 PM EDT [facility] MCH 30.8 27.0 - 32.0 pcg LAB HEMETOLOGY METHOD 07/13/2025 9:01 PM EDT [facility] MCHC 32.2 32.0 - 37.0 g/dL LAB HEMETOLOGY METHOD 07/13/2025 9:01 PM EDT [facility] RDW 14.7 11.0 - 15.0 % LAB HEMETOLOGY METHOD 07/13/2025 9:01 PM EDT [facility] Platelets 274 130 - 400 K/mcL LAB HEMETOLOGY METHOD 07/13/2025 9:01 PM EDT [facility] MPV 10.5 7.0 - 11.0 FL LAB HEMETOLOGY METHOD 07/13/2025 9:01 PM EDT [facility] NRBC 0.0 <1.0 % LAB HEMETOLOGY METHOD 07/13/2025 9:01 PM EDT [facility] NRBC Absolute 0.00 <0.10 K/mcL LAB HEMETOLOGY METHOD 07/13/2025 9:01 PM EDT [facility] Blood Venous blood specimen / Unknown Venipuncture / Unknown 07/13/2025 6:39 PM EDT 07/13/2025 8:17 PM EDT us Yin Malik DO LAB BLOOD ORDERABLES Final Re sult [facility] [address] [place] [address], * (ABNORMAL) Acetaminophen level (07/13/2025 6:39 PM EDT) Acetaminophen Level <2.0(L) 10.0 - 30.0 mcg/mL LAB CHEMISTRY METHOD 07/13/2025 8:43 PM EDT [facility] Blood Venous blood specimen / Unknown Venipuncture / Unknown 07/13/2025 6:39 PM EDT 07/13/2025 8:17 PM EDT Yin Malik LAB BLOOD ORDERABLES Final Re sult Performing Organization Address [facility]/ZIP Co de Phone Number [facility] [address] [place] [address], [place] [phone] * (ABNORMAL) Salicylate Level (07/13/2025 6:39 PM EDT) Salicylate Level <1.7(L) 2.0 - 29.0 mg/dL LAB CHEMISTRY METHOD 07/13/2025 8:43 PM EDT [facility] Blood Venous blood specimen / Unknown Venipuncture / Unknown 07/13/2025 6:39 PM EDT 07/13/2025 8:17 PM EDT Yin Malik LAB BLOOD ORDERABLES Final Re sult Performing Organization Address [facility]/ZIP Co de Phone Number [facility] [address] [place] [address], [place] [phone] * Ethanol (07/13/2025 6:39 PM EDT) Ethanol Level <3 0 - 10 mg/dL LAB CHEMISTRY METHOD 07/13/2025 8:43 PM EDT [facility] Blood Venous blood specimen / Unknown Venipuncture / Unknown 07/13/2025 6:39 PM EDT 07/13/2025 8:17 PM EDT Yin Malik LAB BLOOD ORDERABLES Final Re sult Performing Organization Address City/[facility]/ZIP Co de Phone Number [facility] [address] [place] [address], [place] [phone] * (ABNORMAL) Basic Metabolic Panel (BMP) (07/13/2025 6:39 PM EDT) Sodium 139 133 - 145 mmol/L LAB CHEMISTRY METHOD 07/13/2025 8:43 PM [facility] Potassium 4.1 3.5 - 5.5 mmol/L LAB CHEMISTRY METHOD 07/13/2025 8:43 PM [facility] Chloride 105 96 - 110 mmol/L LAB CHEMISTRY METHOD 07/13/2025 8:43 PM [facility] CO2 27 21 - 32 mmol/L LAB CHEMISTRY METHOD 07/13/2025 8:43 PM [facility] Anion Gap 7 3 - 11 LAB CHEMISTRY METHOD 07/13/2025 8:43 PM [facility] Glucose 141(H) 70 - 100 mg/dL LAB CHEMISTRY METHOD 07/13/2025 8:43 PM [facility] BUN 18 5 - 25 mg/dL LAB CHEMISTRY METHOD 07/13/2025 8:43 PM [facility] Creatinine 0.90 0.50 - 1.10 mg/dL LAB CHEMISTRY METHOD 07/13/2025 8:43 PM [facility] eGFR 73 >=60 mL/min/1. 73m2 LAB CHEMISTRY METHOD 07/13/2025 8:43 PM [facility] Comment:Calculation based on the Chronic Kidney Disease Epidemiology Collaboration (CKD-EPI) equation refit without adjustment for race. BUN/Creatinine Ratio 20.0 LAB CHEMISTRY METHOD 07/13/2025 8:43 PM [facility] Calcium 8.9 8.5 - 10.5 mg/dL LAB CHEMISTRY METHOD 07/13/2025 8:43 PM [facility] Blood Venous blood specimen / Unknown Venipuncture / Unknown 07/13/2025 6:39 PM EDT 07/13/2025 8:17 PM EDT us Yin Malik DO LAB BLOOD ORDERABLES Final Re sult [facility] [address] [place] [address], [place] [phone] documented in this encounter Visit Diagnoses Diagnosis Depression with suicidal ideation- Primary Housing instability documented in this encounter Historical Medications * This list may reflect changes made after this encounter. clonazePAM (KlonoPIN) 2 mg tablet Take 1 tablet (2 mg total) by mouth 2 (two) times a day. Max Daily Amount: 4 mg divalproex (DEPAKOTE) [address] tablet Take 1 tablet (500 mg total) by mouth 3 (three) times a day. Do not crush, chew, or split. zolpidem (AMBIEN) 10 mg tablet Take 1 tablet (10 mg total) by mouth 1 (one) time each day in the evening. Max Daily Amount: 10 mg added in this encounter Orders Consult Count Last Ordered Date First Orde red Date IP CONSULT TO [employer] LA[employer]CH AND RECOVERY TECHNICIAN 1 07/13/2025 documented in this encounter Care Teams Shift Commander Relationship Specialty Start Date End Date Karlene Drake MD [address] [facility] [address] [place] [address] PCP - General Internal Medicine 03/30/21 documented as of this encounter
--- NOTE | 2025-07-14 | ECG_ITS ---
Test Reason : MED CLEARANCE Blood Pressure : */* mmHG Vent. Rate : 77 BPM Atrial Rate : 77 BPM P-R Int : 132 ms QRS Dur : 90 ms QT Int : 414 ms P-R-T Axes : 17 -8 11 degrees QTcB Int : 468 ms Normal sinus rhythm Nonspecific T wave abnormality Abnormal ECG When compared with ECG of 07-Jul-2025 15:11, QT has lengthened Referred By: Generic ED Physician Electronically Signed By: ANGELO BROWN
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
[2025-07-14 08:46] VITALS: BP 126/66; PULSE 92; RESP 16; TEMP 36.1; O2SAT 96; BMI 35.8
--- NOTE | 2025-07-14 09:01 | MHC.EDTECH ---
Patient was called to triage area,to obtain EKG and lab work, patient is being changed over at this time, with tech/security
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
--- OUTSIDE RECORDS SUMMARY | 2025-07-14 10:12 | XMS_ITS | Clinical Summary ---
Author Organization [address] [place] [address] Address [address] [place] [address] Phone Care Team Providers Care Plastics Fabricator And Assembler Name Role Phone Karlene Drake MD Primary Care Provider [phone] Allergies Active Allergy Reactions Criticality Noted Date Comments Codeine Hcl Itching 07/13/2025 Medications atorvastatin (LIPITOR) 40 mg tablet Take [...] a day before meals. 90 each 5 Active tiZANidine (ZANAFLEX) 2 mg tabletIndicatio ns:Muscle [...] 3 each 4 5 06/26/20 26 Active zolpidem (AMBIEN) 10 mg tablet Take 1 tablet (10 mg total) by mouth 1 (one) time each day in the evening. Max Daily Amount: 10 mg Active divalproex (DEPAKOTE) [address] tablet Take 1 tablet (500 mg total) by mouth 3 (three) times a day. Do not crush, chew, or split. Active clonazePAM (KlonoPIN) 2 mg tablet Take 1 tablet (2 mg total) by mouth 2 (two) times a day. Max Daily Amount: 4 mg Active umeclidinium-vi lanteroL (Anoro Ellipta) 62.5-25 mcg/actuation inhaler Inhale 1 puff by mouth 1 (one) time each day. 3 each 4 5 06/26/20 25 Discontin ued(Reord er) Active Problems Problem Noted Date Diagnosed Date Hyperlipidemia 06/10/2025 Depression 06/10/2025 Former cigarette smoker 06/10/2025 GERD (gastroesophageal reflux disease) 5 Encounters Date Type Department Care Team Description 07/13/2025 6:05 PM EDT - 07/13/2025 9:54 PM EDT Emergency [facility] Emergency [address] [place] [address] Yin Malik DO Muhoozi, Bannet, MD Depression with suicidal ideation (Primary Dx); Housing instability Discharge Disposition: Home or Self Care 07/03/2025 11:29 AM EDT - 07/03/2025 11:59 PM EDT Hospital Encounter [facility] CT Scan [address] [place] [address] Screening for lung cancer; Former smoker Discharge Disposition: Home or Self Care 07/03/2025 10:45 AM EDT Office Visit Lung Screening Program - [place] [address] [facility] [address] [place] [phone] Gabriela Brooks PA Encounter for screening for malignant neoplasm of lung in current smoker with 20 pack year history or greater (Primary Dx) 06/23/2025 Telephone Pulmonolgy [facility] [address] [phone] Portia Johnson MD 06/19/2025 Telephone Pulmonolgy [facility] [address] [phone] Portia Johnson MD 06/12/[facility] [address] [phone] Portia Johnson MD 06/09/2025 10:45 AM EDT [facility] [address] [phone] Portia Johnson MD Chronic obstructive pulmonary disease, unspecified COPD type (CMS/HCC V24, CMS/HCC V28) (Primary Dx) 06/09/2025 10:00 AM EDT Office Visit Internal Medicine [facility] [address] [phone] Cj Welsh NP Routine adult health maintenance (Primary Dx); Screening for ischemic heart disease; Screening for diabetes mellitus; Vitamin B12 deficiency; Vitamin D deficiency; Encounter for screening mammogram for malignant neoplasm of breast; Hyperlipidemia, unspecified hyperlipidemia type; Chronic obstructive pulmonary disease, unspecified COPD type (CMS/HCC V24, CMS/HCC V28); Depression, unspecified depression type; Gastroesophageal reflux disease, unspecified whether esophagitis present; Right hip pain; Memory changes; Hypotension, unspecified hypotension type; Muscle spasm of both lower legs; Anemia, unspecified type; Insomnia, unspecified type; Dizziness 06/03/2025 Telephone Internal Medicine - [place] [address] [phone] Karlene Drake MD from Last 3 Months [...] chest pain SIRS (systemic inflammatory response syndrome) ([facility] V24, [facility] V28) DX:SIRS (systemic inflammatory response syndrome) ([facility]) Diarrhea DX:Diarrhea Filling defect on imaging study DX:Filling defect on imaging study COPD (chronic obstructive pu lmonary disease) ([facility] V24, [facility] V28) DX:COPD (chronic o bstructive pulmonary disease) ([facility]) DVT prophylaxis DX:DVT prophylax is Diarrhea DX:Diarrhea Stress DX:Stress Family History Medical History Relation Name Comments Diabetes Father Heart attack Father Diabetes Maternal Grandmother Depression Mother Stroke Mother Thyroid disease Mother Lung cancer Neg Hx Relation Name Status Comments Father (Age 59) [place] Maternal Grandfather Maternal Grandmother (Age 77) Mother [...] Mass Index 31 07/13/2025 5:40 PM EDT Plan of Treatment Upcoming Encounters Date Type Department Care Team (Late st Contact Info) Description 07/28/2025 11:30 AM EDT Office Visit Internal Medicine - [place] 175 [facility] [address] [place] [address] Cj Welsh NP 175 [facility] [address] [place] [address] 12/11/2025 9:45 AM EST Ancillary Procedure Pulmonolgy - [place] [address] [phone] 12/11/2025 10:30 AM EST Office Visit Pulmonolgy - [place] [address] [phone] Portia Johnson MD 175 [facility] A[address] [place] [phone] Health Maintenance Due Date Last Done Comments [...] (#1) 2025 Hypertension/CHF/CAD Annual BMP Blood Test 07/13/2026 07/13/2025, 06/09/2025 Cholesterol Screening (Lipid Panel) 06/09/2030 06/09/2025 [...] AUTO DIFFERENTIAL STAT 07/13/2025 6:39 PM EDT ACETAMINOPHEN LEVEL STAT 07/13/2025 6 :39 PM EDT SALICYLATE LEVEL STAT 07/13/2025 6:39 PM EDT CBC AND DIFFERENTIAL STAT 07/13/2025 6:39 PM EDT ETHANOL STAT 07/13/2025 6:39 PM EDT BASIC METABOLIC PANEL STAT 07/13/2025 6:39 PM EDT CBC WITH AUTO DIFFERENTIAL Routine 06/09/2025 11:34 [...] Recently Relevant to Health Maintenance Results * (ABNORMAL) Manual differential (07/13/2025 6:39 PM EDT) Neutrophils % 54.0 % LAB HEMETOLOGY METHOD 07/13/2025 9:01 PM EDT [facility] Bands % 2.0 % LAB HEMETOLOGY METHOD 07/13/2025 9:01 PM [facility] Lymphocytes % 23.0 % LAB HEMETOLOGY METHOD 07/13/2025 9:01 PM [facility] Reactive Lymphocyte 2.00 % LAB HEMETOLOGY METHOD 07/13/2025 9:01 PM [facility] Monocytes % 17.0 % LAB HEMETOLOGY METHOD 07/13/2025 9:01 PM [facility] Eosinophils % 2.0 % LAB HEMETOLOGY METHOD 07/13/2025 9:01 PM [facility] Basophils % 1.0 % LAB HEMETOLOGY METHOD 07/13/2025 9:01 PM [facility] Neutrophils Absolute Manual 5.51 1.50 - 7.00 K/mcL LAB HEMETOLOGY METHOD 07/13/2025 9:01 PM [facility] Bands Absolute Manual 0.20(H) 0.00 - 0.00 K/mcL LAB HEMETOLOGY METHOD 07/13/2025 9:01 PM [facility] Lymphocytes Absolute 2.35 1.00 - 5.00 K/mcL LAB HEMETOLOGY METHOD 07/13/2025 9:01 PM [facility] Reactive Lymph Abs Manual 0.20(H) 0.00 - 0.00 lym LAB HEMETOLOGY METHOD 07/13/2025 9:01 PM [facility] Monocytes Absolute Manual 1.73(H) 0.20 - 1.00 K/mcL LAB HEMETOLOGY METHOD 07/13/2025 9:01 PM [facility] Eosinophils Absolute Manual 0.20 0.00 - 0.50 K/mcL LAB HEMETOLOGY METHOD 07/13/2025 9:01 PM [facility] Basophils Absolute Manual 0.10 0.00 - 0.20 K/mcL LAB HEMETOLOGY METHOD 07/13/2025 9:01 PM EDT [facility] Rbc Morphology Consistent with indices Consistent with indices, Normal for LAB HEMETOLOGY METHOD 07/13/2025 9:01 PM EDT [facility] Comment:RBC: Morphology agre es with CBC Platelet Morphology - WAM See Note(A) Normal LAB HEMETOLOGY METHOD 07/13/2025 9:01 PM EDT [facility] Comment:PLT: Normal Blood Venous blood specimen / Unknown Venipuncture / Unknown 07/13/2025 6:39 PM EDT 07/13/2025 8:17 PM EDT Yin Malik LAB BLOOD ORDERABLES Final Re sult [facility] [address] [place] [address], * CBC auto differential (07/13/2025 6:39 PM EDT) Only the most recent of2 resultswithin the time period is included. WBC 10.2 4.8 - 10.8 K/mcL LAB HEMETOLOGY METHOD 07/13/2025 9:01 PM EDT [facility] RBC 4.60 3.80 - 4.80 M/mcL LAB HEMETOLOGY METHOD 07/13/2025 9:01 PM EDT [facility] Hemoglobin 14.3 11.5 - 16.0 g/dL LAB HEMETOLOGY METHOD 07/13/2025 9:01 PM EDT [facility] Hematocrit 44.4 35.0 - 47.0 % LAB HEMETOLOGY METHOD 07/13/2025 9:01 PM EDT [facility] MCV 95.7 79.0 - 98.0 FL LAB HEMETOLOGY METHOD 07/13/2025 9:01 PM EDT [facility] MCH 30.8 27.0 - 32.0 pcg LAB HEMETOLOGY METHOD 07/13/2025 9:01 PM EDT [facility] MCHC 32.2 32.0 - 37.0 g/dL LAB HEMETOLOGY METHOD 07/13/2025 9:01 PM EDT [facility] RDW 14.7 11.0 - 15.0 % LAB HEMETOLOGY METHOD 07/13/2025 9:01 PM EDT [facility] Platelets 274 130 - 400 K/mcL LAB HEMETOLOGY METHOD 07/13/2025 9:01 PM EDT [facility] MPV 10.5 7.0 - 11.0 FL LAB HEMETOLOGY METHOD 07/13/2025 9:01 PM EDT [facility] NRBC 0.0 <1.0 % LAB HEMETOLOGY METHOD 07/13/2025 9:01 PM EDT [facility] NRBC Absolute 0.00 <0.10 K/mcL LAB HEMETOLOGY METHOD 07/13/2025 9:01 PM EDT [facility] Blood Venous blood specimen / Unknown Venipuncture / Unknown 07/13/2025 6:39 PM EDT 07/13/2025 8:17 PM EDT Yin Malik DO LAB BLOOD ORDERABLES Final Re sult [facility] [address] [place] [address], * Ethanol (07/13/2025 6:39 PM EDT) Ethanol Level <3 0 - 10 mg/dL LAB CHEMISTRY METHOD 07/13/2025 8:43 PM EDT [facility] Blood Venous blood specimen / Unknown Venipuncture / Unknown 07/13/2025 6:39 PM EDT 07/13/2025 8:17 PM EDT [facility] BLOOD ORDERABLES Final Re sult Performing Organization Address City/[facility]/ZIP Co de Phone Number [facility] [address] [place] [address], [place] [phone] * (ABNORMAL) Acetaminophen level (07/13/2025 6:39 PM EDT) Acetaminophen Level <2.0(L) 10.0 - 30.0 mcg/mL LAB CHEMISTRY METHOD 07/13/2025 8:43 PM EDT [facility] Blood Venous blood specimen / Unknown Venipuncture / Unknown 07/13/2025 6:39 PM EDT 07/13/2025 8:17 PM EDT [facility] BLOOD ORDERABLES Final Re sult Performing Organization Address [facility] Co de Phone Number [facility] [address] [place] [address], [place] [phone] * (ABNORMAL) Salicylate Level (07/13/2025 6:39 PM EDT) Salicylate Level <1.7(L) 2.0 - 29.0 mg/dL LAB CHEMISTRY METHOD 07/13/2025 8:43 PM EDT [facility] Blood Venous blood specimen / Unknown Venipuncture / Unknown 07/13/2025 6:39 PM EDT 07/13/2025 8:17 PM EDT [facility] LAB BLOOD ORDERABLES Final Re sult Performing Organization Address City/[facility]/ZIP Co de Phone Number [facility] [address] [place] [address], [place] [phone] * (ABNORMAL) Basic Metabolic Panel (BMP) (07/13/2025 6:39 PM EDT) Sodium 139 133 - 145 mmol/L LAB CHEMISTRY METHOD 07/13/2025 8:43 PM [facility] Potassium 4.1 3.5 - 5.5 mmol/L LAB CHEMISTRY METHOD 07/13/2025 8:43 PM [facility] Chloride 105 96 - 110 mmol/L LAB CHEMISTRY METHOD 07/13/2025 8:43 PM [facility] CO2 27 21 - 32 mmol/L LAB CHEMISTRY METHOD 07/13/2025 8:43 PM [facility] Anion Gap 7 3 - 11 LAB CHEMISTRY METHOD 07/13/2025 8:43 PM [facility] Glucose 141(H) 70 - 100 mg/dL LAB CHEMISTRY METHOD 07/13/2025 8:43 PM [facility] BUN 18 5 - 25 mg/dL LAB CHEMISTRY METHOD 07/13/2025 8:43 PM [facility] Creatinine 0.90 0.50 - 1.10 mg/dL LAB CHEMISTRY METHOD 07/13/2025 8:43 PM [facility] eGFR 73 >=60 mL/min/1. 73m2 LAB CHEMISTRY METHOD 07/13/2025 8:43 PM [facility] Comment:Calculation based on the Chronic Kidney Disease Epidemiology Collaboration (CKD-EPI) equation refit without adjustment for race. BUN/Creatinine Ratio 20.0 LAB CHEMISTRY METHOD 07/13/2025 8:43 PM [facility] Calcium 8.9 8.5 - 10.5 mg/dL LAB CHEMISTRY METHOD 07/13/2025 8:43 PM [facility] Blood Venous blood specimen / Unknown Venipuncture / Unknown 07/13/2025 6:39 PM EDT 07/13/2025 8:17 PM EDT us Yin Malik DO LAB BLOOD ORDERABLES Final Re sult [facility] [address] [place] [address], [place] [phone] * Thyroid stimulating hormone with reflex to free t4 and free t3 (06/09/2025 11:34 AM EDT) TSH 1.35 0.40 - 4.00 mcIU/mL LAB CHEMISTRY METHOD 06/09/2025 4:36 PM EDT [facility] Blood Venous blood specimen / Unknown Venipuncture / Unknown 06/09/2025 11:34 AM EDT 06/09/2025 11:34 AM EDT Cj Welsh NP LAB BLOOD ORDERABLES Final Resul t Performing Organization Address [facility]/ZIP Co de Phone Number [facility] [address] [place] [address], [place] [phone] * Lipid panel with reflex to direct LDL (06/09/2025 11:34 AM EDT) Cholesterol 114 0 - 200 mg/dL LAB CHEMISTRY METHOD 06/09/2025 3:31 PM EDT [facility] Triglycerides 137 0 - 150 mg/dL LAB CHEMISTRY METHOD 06/09/2025 3:31 PM EDT [facility] HDL 55 >=40 mg/dL LAB CHEMISTRY METHOD 06/09/2025 3:31 PM EDT [facility] LDL Calculated 32 0 - 100 mg/dL LAB CHEMISTRY METHOD 06/09/2025 3:31 PM EDT [facility] Comment:Estimated LDL Calcul ated using equation: Total cholesterol - HDL cholesterol - (Triglycerides/5) VLDL Cholesterol Jimmie 27.4 mg/dL LAB CHEMISTRY METHOD 06/09/2025 3:31 PM EDT [facility] Non HDL Chol. (LDL+VLDL) 59 <145 mg/dL LAB CHEMISTRY METHOD 06/09/2025 3:31 PM EDT [facility] Chol/HDL Ratio 2.1 0.0 - 4.4 LAB CHEMISTRY METHOD 06/09/2025 3:31 PM EDT [facility] Blood Venous blood specimen / Unknown Venipuncture / Unknown 06/09/2025 11:34 AM EDT 06/09/2025 11:34 AM EDT Cj Welsh ELECTRONIC HEALTH RECORDS SPECIALIST LAB BLOOD ORDERABLES Final Resul t Performing Organization Address City/[facility]/ZIP Co de Phone Number [facility] [address] [place] [address], [place] [phone] * Iron and TIBC (06/09/2025 11:34 AM EDT) Iron 67 40 - 150 mcg/dL LAB CHEMISTRY METHOD 06/09/2025 3:31 PM EDT [facility] TIBC 378 250 - 450 mcg/dL LAB CHEMISTRY METHOD 06/09/2025 3:31 PM EDT [facility] Iron Saturation 18 15 - 50 % LAB CHEMISTRY METHOD 06/09/2025 3:31 PM EDT [facility] Blood Venous blood specimen / Unknown Venipuncture / Unknown 06/09/2025 11:34 AM EDT 06/09/2025 11:34 AM EDT Cj Welsh ELECTRONIC HEALTH RECORDS SPECIALIST LAB BLOOD ORDERABLES Final Resul t [facility] [address] [place] [address], [place] [phone] * Vitamin D 25 hydroxy (06/09/2025 11:34 AM EDT) Vit D, 25-Hydroxy 35.9 30.0 - 80.0 ng/mL LAB CHEMISTRY METHOD 06/09/2025 4:35 PM EDT [facility] Blood Venous blood specimen / Unknown Venipuncture / Unknown 06/09/2025 11:34 AM EDT 06/09/2025 11:34 AM EDT us Cj Welsh ELECTRONIC HEALTH RECORDS SPECIALIST LAB BLOOD ORDERABLES Final Resul t [facility] [address] [place] [address], [place] [phone] * Magnesium (06/09/2025 11:34 AM EDT) Pathologist [facility] Magnesium 2.2 1.9 - 2.6 mg/dL LAB CHEMISTRY METHOD 06/09/2025 2:53 PM EDT [facility] Blood Venous blood specimen / Unknown Venipuncture / Unknown 06/09/2025 11:34 AM EDT 06/09/2025 11:34 AM EDT Cj Welsh ELECTRONIC HEALTH RECORDS SPECIALIST LAB BLOOD ORDERABLES Final Resul t Performing Organization Address [facility] Co de Phone Number [facility] [address] [place] [address], [place] [phone] * Hemoglobin A1c (06/09/2025 11:34 AM EDT) [facility] [address] Hemoglobin A1C 5.7 <6.5 % LAB CHEMISTRY METHOD 06/09/2025 9:15 PM EDT [facility] Mean Bld Glu Estim. 117 mg/dL LAB CHEMISTRY METHOD 06/09/2025 9:15 PM EDT [facility] Blood Venous blood specimen / Unknown Venipuncture / Unknown 06/09/2025 11:34 AM EDT 06/09/2025 11:34 AM EDT us Cj Welsh ELECTRONIC HEALTH RECORDS SPECIALIST LAB BLOOD ORDERABLES Final Resul t Performing Organization Address City/[facility]/ZIP Co de Phone Number [facility] [address] [place] [address], [place] [phone] * Folate (06/09/2025 11:34 AM EDT) Folate 13.2 2.8 - 17.0 ng/ml LAB CHEMISTRY METHOD 06/09/2025 3:31 PM EDT [facility] Blood Venous blood specimen / Unknown Venipuncture / Unknown 06/09/2025 11:34 AM EDT 06/09/2025 11:34 AM EDT Cj Welsh ELECTRONIC HEALTH RECORDS SPECIALIST LAB BLOOD ORDERABLES Final Resul t [facility] [address] [place] [address], [place] [phone] * Ferritin (06/09/2025 11:34 AM EDT) Pathologist [facility] Ferritin 16 8 - 252 ng/mL LAB CHEMISTRY METHOD 06/09/2025 3:31 PM EDT [facility] Blood Venous blood specimen / Unknown Venipuncture / Unknown 06/09/2025 11:34 AM EDT 06/09/2025 11:34 AM EDT Cj Welsh ELECTRONIC HEALTH RECORDS SPECIALIST LAB BLOOD ORDERABLES Final Resul t [facility] [address] [place] [address], [place] [phone] * Vitamin B12 (06/09/2025 11:34 AM EDT) Vitamin B-12 598 250 - 900 pcg/mL LAB CHEMISTRY METHOD 06/09/2025 3:31 PM EDT [facility] Blood Venous blood specimen / Unknown Venipuncture / Unknown 06/09/2025 11:34 AM EDT 06/09/2025 11:34 AM EDT Cj Welsh ELECTRONIC HEALTH RECORDS SPECIALIST LAB BLOOD ORDERABLES Final Resul t [facility] [address] [place] [address], * (ABNORMAL) Comprehensive metabolic panel (06/09/2025 11:34 AM EDT) Sodium 138 133 - 145 mmol/L LAB CHEMISTRY METHOD 06/09/2025 3:31 PM EDT [facility] Potassium 4.6 3.5 - 5.5 mmol/L LAB CHEMISTRY METHOD 06/09/2025 3:31 PM [facility] Chloride 107 96 - 110 mmol/L LAB CHEMISTRY METHOD 06/09/2025 3:31 PM [facility] CO2 25 21 - 32 mmol/L LAB CHEMISTRY METHOD 06/09/2025 3:31 PM [facility] Anion Gap 6 3 - 11 LAB CHEMISTRY METHOD 06/09/2025 3:31 PM [facility] Glucose 63(L) 70 - 100 mg/dL LAB CHEMISTRY METHOD 06/09/2025 3:31 PM [facility] BUN 14 5 - 25 mg/dL LAB CHEMISTRY METHOD 06/09/2025 3:31 PM [facility] Creatinine 1.03 0.50 - 1.10 mg/dL LAB CHEMISTRY METHOD 06/09/2025 3:[facility] eGFR 62 >=60 mL/min/1. 73m2 LAB CHEMISTRY METHOD 06/09/2025 3:31 PM [facility] Comment:Calculation based on the Chronic Kidney Disease Epidemiology Collaboration (CKD-EPI) equation refit without adjustment for race. BUN/Creatinine Ratio 13.6 LAB CHEMISTRY METHOD 06/09/2025 3:31 PM [facility] Calcium 8.6 8.5 - 10.5 mg/dL LAB CHEMISTRY METHOD 06/09/2025 3:31 PM [facility] AST (SGOT) 22 10 - 42 unit/L LAB CHEMISTRY METHOD 06/09/2025 3:31 PM EDT [facility] ALT (SGPT) 21 10 - 60 unit/L LAB CHEMISTRY METHOD 06/09/2025 3:31 PM EDT [facility] Alkaline Phosphatase 61 42 - 121 unit/L LAB CHEMISTRY METHOD 06/09/2025 3:31 PM EDT [facility] Total Protein 6.4 6.0 - 8.0 g/dL LAB CHEMISTRY METHOD 06/09/2025 3:31 PM EDT [facility] Albumin 3.5 3.2 - 5.0 g/dL LAB CHEMISTRY METHOD 06/09/2025 3:31 PM EDT [facility] Total Bilirubin 0.6 0.0 - 1.4 mg/dL LAB CHEMISTRY METHOD 06/09/2025 3:31 PM EDT [facility] Blood Venous blood specimen / Unknown Venipuncture / Unknown 06/09/2025 11:34 AM EDT 06/09/2025 11:34 AM EDT us Cj Welsh NP LAB BLOOD ORDERABLES Final Resul t [facility] [address] [place] [address], * CT LUNG SCREENING LOW DOSE (05/29/2023 11:34 AM EDT) Anatomical Region Laterality Modality Computed Tomogra phy 05/29/2023 11:2 3 AM EDT Narrative 05/29/2023 11:34 AM EDT [facility] Diagnostic Imaging Department [address] [place] [address] Patient: ANETTE PETERSON /Age/Sex: 1965 - 57 - F Unit#: [id number] Location/Status: SPDICATLS/REG CLI Mnemonic/Ordering Site: [facility] Ordering Physician: CANDY GLASER MD CT Lung [...] Procedure Note Fortino Looney MD - 12/05/2023 [facility] Diagnostic Imaging Department [address] [place] [address] Patient: ANETTE PETERSON /Age/Sex: 1965 - 57 - F Unit#: [id number] Location/Status: SPDICATLS/REG CLI Mnemonic/Ordering Site: [facility] Ordering Physician: CANDY GLASER MD CT Lung [...] Most Recently Relevant to Health Maintenance Insurance [facility] Care Teams Plastics Fabricator And Assembler Relationship Specialty Start Date End Date Karlene Drake MD [address] [place] [phone] PCP - General Internal Medicine 03/30/21
--- OUTSIDE RECORDS SUMMARY | 2025-07-14 10:12 | XMS_ITS | Encounter Summary ---
Author Organization [facility] Address [address] [place] [address] Care Team Providers Care Zipper Sewing Machine Operator Name Role Phone Karlene Drake MD Primary Care Provider [phone] Reason for Visit * Reason Onset Date Comments prior auth 06/19/2025 Encounter Details Date Type Department Care Team ([facility] st Contact Info) Description 06/19/2025 Telephone [facility] [address] [facility] [address] [place] [phone] Portia Johnson MD [address] [facility] [address] [place] [address] Social History Tobacco Use Types Packs/Day Years [...] not require for Anoro Ellipta * Cristel Freemano - 06/19/2025 10:50 AM EDT Prior auth needed for Anoro Ellipta 62.5-25 mcg / act aerosol powder Ortiz: [id number] documented in this encounter Plan of Treatment Upcoming Encounters Date Type Department Care Team (Late st Contact Info) Description 07/28/2025 11:30 AM EDT Office Visit Internal Medicine - [place] [address] [place] [phone] Cj Welsh NP [address] [address] 12/11/2025 9:45 AM EST Ancillary Procedure Pulmonolgy - [place] [address] [phone] 12/11/2025 10:30 AM EST Office Visit Pulmonolgy - [place] [address] [phone] Portia Johnson MD [address] [address] documented as of this encounter Visit Diagnoses Not on filedocumented in this encounter Care Teams Zipper Sewing Machine Operator Relationship Specialty Start Date End Date Karlene Drake MD [address] [phone] PCP - General Internal Medicine 03/30/21 documented as of this encounter
--- OUTSIDE RECORDS SUMMARY | 2025-07-14 10:12 | XMS_ITS | Encounter Summary ---
Author Organization [facility] Address [address] [place] [address] Care Team Providers Care Learning Solutions Specialist Name Role Phone Karlene Drake MD Primary Care Provider Reason for Visit * Reason Onset Date Comments PRIOR AUTH 06/23/2025 Encounter Details Date Type Department Care Team ([facility] st Contact Info) Description 06/23/[address] [facility] [address] [facility] [address] [place] [phone] Portia Johnson MD 175 [facility] [address] [place] [address] Social History Tobacco Use Types Packs/Day Years [...] propionate hfa 110 mcg/ act aerosol Ortiz: PREETHJEF documented in this encounter Plan of Treatment Upcoming Encounters Date Type Department Care Team (Late st Contact Info) Description 07/28/2025 11:30 AM EDT Office Visit Internal Medicine - [place] [address] [facility] [address] [place] [address] Cj Welsh NP [address] [facility] [address] [place] [address] 12/11/2025 9:45 AM EST Ancillary Procedure Pulmonolgy - [place] [address] [facility] [address] [place] [phone] 12/11/2025 10:30 AM EST Office Visit Pulmonolgy [facility] [address] [phone] Portia Johnson MD [address] [facility] [address] [place] [address] documented as of this encounter Visit Diagnoses Not on filedocumented in this encounter Care Teams Learning Solutions Specialist Relationship Specialty Start Date End Date Karlene Drake MD [address] [phone] PCP - General Internal Medicine 03/30/21 documented as of this encounter
--- OUTSIDE RECORDS SUMMARY | 2025-07-14 10:12 | XMS_ITS | Encounter Summary ---
Author Organization [facility] Address [id number] [place] [phone] Care Team Providers Care Service Learning Coordinator Name Role Phone Karlene Drake MD Primary Care Provider [phone] Encounter Details Date Type Department Care Team ([facility] st Contact Info) Description [facility] 200 [place] [phone] Portia Johnson MD 175 [facility] 200 [place] [address] Social History Tobacco Use Types Packs/Day Years [...] HFA (Flovent HFA) 110 mcg/actuation inhaler Ortiz: [id number] documented in this encounter Plan of Treatment Upcoming Encounters Date Type Department Care Team (Late st Contact Info) Description 07/28/2025 11:30 AM EDT Office Visit Internal Medicine - [place] [address] [phone] Cj Welsh NP [address] [address] 12/11/2025 9:45 AM EST Ancillary Procedure Pulmonolgy - [place] [address] [phone] 12/11/2025 10:30 AM EST Office Visit Pulmonolgy - [place] [address] [phone] Portia Johnson MD [address] [address] documented as of this encounter Visit Diagnoses Not on filedocumented in this encounter Care Teams Service Learning Coordinator Relationship Specialty Start Date End Date Karlene Drake MD [address] [phone] PCP - General Internal Medicine 03/30/21 documented as of this encounter
[2025-07-14 10:50] LABS: MANUAL DIFF FLAG NO
[2025-07-14 10:54] LABS: Hematocrit 43.1 % (37.0-47.0); Hemoglobin 14.3 g/dl (12.0-16.0); Imm Gran Abs Auto 0.04 X10*3/uL (0.00-0.03); Imm Gran Pct Auto 0.5 % (0.0-0.4); Lymphocytes Absolute Auto 2.6 X10*3/uL (1.2-4.9); Mean Corpuscular HGB Conc 33.2 g/dl (31.0-35.0); Mean Corpuscular Hemoglobin 31.2 pg (27.0-33.0); Mean Corpuscular Volume 94.1 fL (80.0-98.0); NRBC Abs Auto 0.000 X10*3/uL (0.0-0.012); NRBC Pct Auto 0.0 /100WBC (0.0-0.2); Platelet Count 259 X10*3/uL (160-400); Red Blood Count 4.58 X10*6/uL (4.20-5.50); White Blood Count 8.1 X10*3/uL (4.8-10.8)
[2025-07-14 11:07] LABS: Alanine Aminotransferase 21 U/L (0-31); Albumin Level 4.3 g/dL (3.5-5.0); Alkaline Phosphatase 67 U/L (39-117); Anion Gap 14 (12-20); Aspartate Amino Transferase 22 U/L (5-31); Blood Urea Nitrogen 14 mg/dL (9-16); Calcium 8.7 mg/dL (8.4-10.2); Carbon Dioxide 27 mmol/L (22-29); Chloride 105 mmol/L (96-108); Creatinine Clr Calc Pharmacy 72.5; Estimated Glomerular Filt Rate > 60; Potassium 4.8 mmol/L (3.3-5.1); Sodium 141 mmol/L (135-145); Total Protein 6.6 g/dL (6.5-8.0)
[2025-07-14 11:11] LABS: Acetaminophen LAB < 3 mcg/mL (<30); Salicylate < 5.0 mg/dL (15-30)
[2025-07-14 13:15] VITALS: BP 128/76; PULSE 72; RESP 17; O2SAT 94
--- NOTE | 2025-07-14 13:43 | PC.NURSE ---
Assumed care of this patient upon transfer to [facility] at this time. Patient calm/cooperative at this time.
[2025-07-14 13:54] LABS: Appearance Urine Clear; Glucose Urine UA Negative (Negative); PH 7.5 (5.0-9.0); Specific Gravity - Urine <= 1.005 (1.005-1.025)
[2025-07-14 14:07] LABS: Cannabinoid Screen Urine Not Detected (Not Detect)
--- NOTE | 2025-07-14 14:38 | PC.NURSE ---
Med rec done w/ patient using home meds on external med refill. Provider Flor made aware.
--- NOTE | 2025-07-14 14:50 | PC.NURSE ---
Pt to jacob Ferguson and electronic systems security assessment
[2025-07-14 17:05] VITALS: BP 121/58; PULSE 78; RESP 16; TEMP 36.6; O2SAT 93
--- NOTE | 2025-07-14 17:30 | PC.NURSE ---
Pt to reach out to family to bring in pt's inhaler.
--- NOTE | 2025-07-14 17:42 | MHC.CARE ---
Patient evaluated by the CARE Team, disposition inpatient psychiatric admission. Provider, FABI Daugherty, updated.
[2025-07-14 20:00] VITALS: BP 125/64; PULSE 76; RESP 16; TEMP 36.3; O2SAT 96
[2025-07-14 20:09] VITALS: BMI 29.1
[2025-07-14 21:48] VITALS: BP 125/64
--- NOTE | 2025-07-14 22:55 | PC.NURSE ---
Pt picked up from the ED POD at 20:15. Pt transferred to the wheelchair and escorted to the S1 with security, Lakesha, and Shai. Anette is pleasant, anxious, A/Ox4. Pt was recently discharged from 3 days ago, for SI with a plan. The pt reported increased anxiety/depression and SI with a plan to overdose and returned to the ED. The pt states that she is homeless. Pt states I was kicked out of my niece's house, so I am homeless. Pt is med compliant, ambulates independently. Pt reports engaging her med prescriber at [facility] monthly. Pt reports occasional bowel and bladder incontinence. Pt oriented to the unit and belongings secured. Pt declined Midodrine, takes medications whole with water.
[2025-07-15 07:55] VITALS: BP 145/71; PULSE 77; RESP 18; TEMP 36.6; O2SAT 94
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
[2025-07-15 08:25] LABS: Hemoglobin A1C 151.6293 umol/L; Total Hemoglobin (HGBA1C) 3924.2613 umol/L
[2025-07-15 08:34] LABS: Alanine Aminotransferase 19 U/L (0-31); Albumin Level 4.4 g/dL (3.5-5.0); Alkaline Phosphatase 63 U/L (39-117); Anion Gap 14 (12-20); Aspartate Amino Transferase 24 U/L (5-31); Blood Urea Nitrogen 14 mg/dL (9-16); Calcium 9.5 mg/dL (8.4-10.2); Carbon Dioxide 29 mmol/L (22-29); Chloride 107 mmol/L (96-108); Cholesterol 145 mg/dL (<200); Creatinine Clr Calc Pharmacy 59.1; Estimated Glomerular Filt Rate 58; HDL Cholesterol 48 mg/dL (>40); Potassium 5.1 mmol/L (3.3-5.1); Sodium 145 mmol/L (135-145); Total Protein 6.8 g/dL (6.5-8.0); Triglycerides 169 mg/dL (<150)
[2025-07-15 08:37] VITALS: BP 145/71
[2025-07-15 08:51] LABS: Free T4 (Free Thyroxine) 0.89 ng/dL (0.71-1.85); Thyroid Stimulating Hormone 2.63 uIU/mL (0.32-4.0)
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
[2025-07-15 15:22] VITALS: BP 117/56
[2025-07-15 20:00] VITALS: BP 125/57; PULSE 76; RESP 16; TEMP 36.6; O2SAT 92
[2025-07-15 20:27] VITALS: BP 125/57
[2025-07-16 07:49] VITALS: BP 121/62; PULSE 80; RESP 17; TEMP 36.2; O2SAT 95
--- NOTE | 2025-07-16 09:52 | P.PNPSI_ITS ---
Subjective Subjective Date of Service: 07/16/25 Reason For Visit: SI Interim History: tearful, angry, labile. feeling her needs are not being met by staff on the unit. demanding access to her phone to get a number she needs to call so someone can let her daughter know where she is. also wants to make sure she can receive a call from [facility] at 330 this afternoon. no problems with medications at the moment. Mental Status Exam Mental Status Exam Narrative: adequately dressed and groomed. cooperative. speech nml rate, amount, loudness, latency. thoughts linear and logical. affect constricted, hyper- intense, labile. mood angry/irritable. no SI/HI/AVH expressed. Diagnostics Vital Signs (24Hr): Vital Signs - 24 hr 07/15/25 15:22 07/15/25 20:00 07/15/25 20:27 Temperature 97.8 F Pulse Rate 76 Respiratory Rate 16 Blood Pressure 117/56 L 125/57 L 125/57 L Pulse Oximetry 92 Oxygen Delivery Method Room Air 07/16/25 07:49 Temperature 97.1 F Pulse Rate 80 Respiratory Rate 17 Blood Pressure 121/62 Pulse Oximetry 95 Oxygen Delivery Method Room Air BMI result Body Mass Index 29.1 Labs 07/14/25 10:46 07/15/25 07:46 Labs: Laboratory Results - last 48 hr 07/14/25 07/14/25 07/15/25 10:46 13:47 07:46 WBC 8.1 RBC 4.58 Hgb 14.3 Hct 43.1 MCV 94.1 MCH 31.2 MCHC 33.2 RDW 14.6 Plt Count 259 D MPV 10.3 Immature Gran % (Auto) 0.5 H Neut % (Auto) 49.0 Lymph % (Auto) 32.5 Burt % (Auto) 15.3 H Eos % (Auto) 2.0 Baso % (Auto) 0.7 Lymph # (Auto) 2.6 Burt # (Auto) 1.2 Eos # (Auto) 0.2 Baso # (Auto) 0.1 Abs Immat Gran (auto) 0.04 H Absolute Neuts (auto) 4.0 Absolute Nucleated RBC 0.000 Nucleated RBC % (auto) 0.0 Sodium 141 145 Potassium 4.8 5.1 Chloride 105 107 Carbon Dioxide 27 29 Anion Gap 14 14 BUN 14 14 Creatinine 0.88 0.97 Estim Creat Clear Calc 72.5 59.1 Estimated GFR > 60 58 Random Glucose 93 83 Estimat Average Glucose 117 Hemoglobin A1c % 5.7 Calcium 8.7 D 9.5 D Total Bilirubin 0.5 0.5 AST 22 24 ALT 21 19 Alkaline Phosphatase 67 63 Total Protein 6.6 6.8 Albumin 4.3 4.4 Triglycerides 169 H Cholesterol 145 LDL Cholesterol, Calc 64 HDL Cholesterol 48 TSH 2.63 Free T4 0.89 Urine Color Yellow Urine Appearance Clear Urine pH 7.5 Ur Specific Asher <= 1.005 Urine Protein Negative Urine Glucose (UA) Negative Urine Ketones Negative Urine Blood Negative Urine Nitrite Negative Ur Leukocyte Esterase Negative Urine RBC 0-2 Urine WBC 0-5 Ur Squamous Epith Cells 0-2 Urine Bacteria None Seen Hyaline Casts 0-2 Salicylates < 5.0 L Urine Opiates Screen Not Detected Ur Buprenorphine Scrn Not Detected Ur Oxycodone Screen Not Detected Urine Methadone Screen Not Detected Urine Fentanyl Screen Not Detected Acetaminophen < 3 Ur Barbiturates Screen Not Detected Ur Phencyclidine Scrn Not Detected Ur Amphetamines Screen Not Detected U Benzodiazepines Scrn Not Detected Urine Cocaine Screen Not Detected U Marijuana (THC) Screen Not Detected Ethyl Alcohol < 10 Imaging Radiology Impressions: ITS Impressions Ankle X-Ray 07/14/25 14:44 IMPRESSION: Possible anterior ankle impingement. There is a large anterior spur involving tibial plafond and degenerative cystic change in the dorsal talar neck. Post-ORIF of the distal fibula the syndesmotic screw. Electronically signed by: Luther Davila MD 07/14/2025 02:58 PM EDT Medications Medications Current Medications Acetaminophen (Acetaminophen 325 Mg Tablet) 650 mg PO Q6H PRN PRN Reason: Headache/Pain, Scale 1-10 Last Admin: 07/15/25 20:57 Dose: 650 mg Al Hydroxide/Mg Hydroxide (Magnesium Hydrox/Alum Hydrox 30 Ml Oral.Susp) 30 ml PO Q6H PRN PRN Reason: Heartburn/Nausea Albuterol/Ipratropium (Albuterol/Iprat 2.5/0.5mg 3 Ml Ampul.Neb) 3 ml INHALE Q6H PRN PRN Reason: Shortness Of Breath Or Wheezing Atorvastatin Calcium (Atorvastatin Calcium 20 Mg Tablet) 60 mg PO DAILY [facility] Last Admin: 07/16/25 08:24 Dose: 60 mg Bismuth Subsalicylate (Bismuth Subsalicylate 262 Mg Tablet) 524 mg PO Q1H PRN PRN Reason: Loose Stool Cariprazine (Cariprazine Hcl 3 Mg Capsule) 3 mg PO DAILY [facility] Last Admin: 07/16/25 08:26 Dose: 3 mg Clonazepam (Clonazepam 1 Mg Tablet) 1 mg PO BID PRN PRN Reason: Anxiety Last Admin: 07/16/25 08:28 Dose: 1 mg Divalproex Sodium (Divalproex Sodium 500 Mg Tablet.) 500 mg PO BID [facility] Last Admin: 07/16/25 08:24 Dose: 500 mg Docusate Sodium (Docusate Sodium 100 Mg Capsule) 100 mg PO BID PRN PRN Reason: Constipation Fluoxetine HCl (Fluoxetine Hcl 20 Mg Capsule) 40 mg PO DAILY [facility] Last Admin: 07/16/25 08:25 Dose: 40 mg Gabapentin (Gabapentin 300 Mg Capsule) 300 mg PO TID [facility] Last Admin: 07/16/25 08:24 Dose: 300 mg Hydroxyzine HCl (Hydroxyzine Hcl 50 Mg Tablet) 50 mg PO TID PRN PRN Reason: Anxiety Magnesium Hydroxide (Milk Of Magnesia 30 Ml Oral.Susp) 30 ml PO DAILY PRN PRN Reason: Constipation Midodrine (Midodrine Hcl 2.5 Mg Tablet) 2.5 mg PO TID [facility] Last Admin: 07/16/25 08:25 Dose: 2.5 mg Multivitamins/Vitamin C (Multivitamin Tablet) 1 tab PO DAILY [facility] Last Admin: 07/16/25 08:24 Dose: 1 tab Nicotine Polacrilex (Nicotine Polacrilex 2 Mg Gum) 2 mg BUCCAL Q2H PRN PRN Reason: Nicotine Cravings Non-Formulary Medication (Umeclidinium-Vilanterol [Anoro Ellipta]) 1 each INHALE DAILY [facility] Omeprazole (Omeprazole 40 Mg Capsule.) 40 mg PO DAILY@0630 [facility] Last Admin: 07/16/25 06:29 Dose: 40 mg Tizanidine HCl (Tizanidine Hcl 4 Mg Tablet) 2 mg PO DAILY [facility] Last Admin: 07/16/25 08:25 Dose: 2 mg Zolpidem Tartrate (Zolpidem Tartrate 5 Mg Tablet) 10 mg PO BEDTIME PRN PRN Reason: Insomnia Last Admin: 07/14/25 21:25 Dose: 10 mg Allergies Allergies Allergy/AdvReac Type Severity Reaction Status Date / Time hydrocodone (HYDROCODONE) AdvReac Mild ITCHING Verified 07/14/25 08:49 Assessment & Plan Assessment & Plan (1) Suicidal ideation: Status: Acute Code(s): R45.851 - Suicidal ideations (2) Bipolar disorder: Status: Acute Code(s): F31.9 - Bipolar disorder, unspecified (3) COPD (chronic obstructive pulmonary disease): Status: Acute Code(s): J44.9 - Chronic obstructive pulmonary disease, unspecified Plan 07/15: continue regimen as at discharge 07/11 (4 days ago). support housing search. 07/16: social work supports today, irritable and labile. continue current mgmt otherwise. Reason for continued inpatient stay Substantial Risk for: harm to self, inability to function and rapid decompensation Time Spent With Patient Time: Total time managing care of this patient today _25___ minutes.
[2025-07-16 20:00] VITALS: BP 120/64; PULSE 64; RESP 16; TEMP 36.1; O2SAT 95
[2025-07-16 20:20] VITALS: BP 120/64
[2025-07-17 08:00] VITALS: BP 131/82; PULSE 80; RESP 17; TEMP 36.5; O2SAT 96
[2025-07-17 08:30] VITALS: BMI 29.3
[2025-07-17 08:41] VITALS: BP 131/82
[2025-07-17] MEDS: Umeclidinium/Vilanterol 62.5/25 BLST.W.DEV 1 PUFF INHALE (10:46)
--- NOTE | 2025-07-17 14:29 | HO.PSYCHPN ---
Subjective Subjective Date of Service: 07/17/25 Reason For Visit: SI Interim History: calm, cooperative, pleasant today. got in touch with her daughter yesterday and got her car moved. rescheduled [facility] call. now just has to address the issue of her things at her niece's house. c/o back pain, states she is prescribed tramadol 50 intermittently for it. agrees to the same for a limited period. warned re tramadol plus klonopin and that if mental status changes occur, klonopin may be decreased. continues to feel very helped by mino. Mental Status Exam Mental Status Exam Narrative: adequately dressed and groomed. cooperative. speech nml rate, amount, loudness, latency. thoughts linear and logical. affect full range, normo-intense, non-labile. mood improved from yesterday. no SI/HI/AVH expressed. Diagnostics Vital Signs (24Hr): Vital Signs - 24 hr 07/16/25 20:00 07/16/25 20:20 07/17/25 08:00 Temperature 97 F 97.7 F Pulse Rate 64 80 Respiratory Rate 16 17 Blood Pressure 120/64 120/64 131/82 Pulse Oximetry 95 96 Oxygen Delivery Method Room Air Room Air 07/17/25 08:41 Temperature Pulse Rate Respiratory Rate Blood Pressure 131/82 Pulse Oximetry Oxygen Delivery Method BMI result Body Mass Index 29.3 Labs 07/14/25 10:46 07/15/25 07:46 Imaging Radiology Impressions: ITS Impressions Ankle X-Ray 07/14/25 14:44 IMPRESSION: Possible anterior ankle impingement. There is a large anterior spur involving tibial plafond and degenerative cystic change in the dorsal talar neck. Post-ORIF of the distal fibula the syndesmotic screw. Electronically signed by: Luther Davila MD 07/14/2025 02:58 PM EDT Medications Medications Current Medications Acetaminophen (Acetaminophen 325 Mg Tablet) 650 mg PO Q6H PRN PRN Reason: Headache/Pain, Scale 1-7 Last Admin: 07/16/25 13:55 Dose: 650 mg Al Hydroxide/Mg Hydroxide (Magnesium Hydrox/Alum Hydrox 30 Ml Oral.Susp) 30 ml PO Q6H PRN PRN Reason: Heartburn/Nausea Albuterol/Ipratropium (Albuterol/Iprat 2.5/0.5mg 3 Ml Ampul.Neb) 3 ml INHALE Q6H PRN PRN Reason: Shortness Of Breath Or Wheezing Atorvastatin Calcium (Atorvastatin Calcium 20 Mg Tablet) 60 mg PO DAILY [facility] Last Admin: 07/17/25 08:38 Dose: 60 mg Bismuth Subsalicylate (Bismuth Subsalicylate 262 Mg Tablet) 524 mg PO Q1H PRN PRN Reason: Loose Stool Cariprazine (Cariprazine Hcl 3 Mg Capsule) 3 mg PO DAILY [facility] Last Admin: 07/17/25 08:38 Dose: 3 mg Clonazepam (Clonazepam 1 Mg Tablet) 1 mg PO BID PRN PRN Reason: Anxiety Last Admin: 07/17/25 08:42 Dose: 1 mg Divalproex Sodium (Divalproex Sodium 500 Mg Tablet.) 500 mg PO BID [facility] Last Admin: 07/17/25 08:40 Dose: 500 mg Docusate Sodium (Docusate Sodium 100 Mg Capsule) 100 mg PO BID PRN PRN Reason: Constipation Fluoxetine HCl (Fluoxetine Hcl 20 Mg Capsule) 40 mg PO DAILY [facility] Last Admin: 07/17/25 08:38 Dose: 40 mg Gabapentin (Gabapentin 300 Mg Capsule) 300 mg PO TID [facility] Last Admin: 07/17/25 08:40 Dose: 300 mg Hydroxyzine HCl (Hydroxyzine Hcl 50 Mg Tablet) 50 mg PO TID PRN PRN Reason: Anxiety Last Admin: 07/16/25 21:42 Dose: 50 mg Magnesium Hydroxide (Milk Of Magnesia 30 Ml Oral.Susp) 30 ml PO DAILY PRN PRN Reason: Constipation Midodrine (Midodrine Hcl 2.5 Mg Tablet) 2.5 mg PO TID [facility] Last Admin: 07/17/25 08:41 Dose: 2.5 mg Multivitamins/Vitamin C (Multivitamin Tablet) 1 tab PO DAILY [facility] Last Admin: 07/17/25 08:39 Dose: 1 tab Nicotine Polacrilex (Nicotine Polacrilex 2 Mg Gum) 2 mg BUCCAL Q2H PRN PRN Reason: Nicotine Cravings Omeprazole (Omeprazole 40 Mg Capsule.) 40 mg PO DAILY@0630 [facility] Last Admin: 07/17/25 06:19 Dose: 40 mg Tizanidine HCl (Tizanidine Hcl 4 Mg Tablet) 2 mg PO DAILY [facility] Last Admin: 07/17/25 08:39 Dose: 2 mg Tramadol HCl (Tramadol Hcl 50 Mg Tablet) 50 mg PO Q6H PRN PRN Reason: severe pain (8-10) Last Admin: 07/17/25 12:34 Dose: 50 mg Zolpidem Tartrate (Zolpidem Tartrate 5 Mg Tablet) 10 mg PO BEDTIME PRN PRN Reason: Insomnia Last Admin: 07/16/25 20:38 Dose: 10 mg Allergies Allergies Allergy/AdvReac Type Severity Reaction Status Date / Time hydrocodone (HYDROCODONE) AdvReac Mild ITCHING Verified 07/14/25 08:49 Assessment & Plan Assessment & Plan (1) Suicidal ideation: Status: Acute Code(s): R45.851 - Suicidal ideations (2) Bipolar disorder: Status: Acute Code(s): F31.9 - Bipolar disorder, unspecified (3) COPD (chronic obstructive pulmonary disease): Status: Acute Code(s): J44.9 - Chronic obstructive pulmonary disease, unspecified Plan 07/15: continue regimen as at discharge 07/11 (4 days ago). support housing search. 07/16: social work supports today, irritable and labile. continue current mgmt otherwise. 07/17: tramadol 50 PRN back pain added. may need to decrease klonopin dosing if MS changes occur. no longer labile, in much better spirits as pressing issues outside the hospital have been addressed. Reason for continued inpatient stay Substantial Risk for: harm to self and inability to function Time Spent With Patient Time: Total time managing care of this patient today __35__ minutes.
[2025-07-17 15:16] VITALS: BP 108/60; PULSE 82
[2025-07-17 20:00] VITALS: BP 113/56; PULSE 62; RESP 19; TEMP 36; O2SAT 94
[2025-07-18 07:57] LABS: Hematocrit 43.6 % (37.0-47.0); Hemoglobin 14.9 g/dl (12.0-16.0); Imm Gran Pct Auto 0.9 % (0.0-0.4); Mean Corpuscular HGB Conc 34.2 g/dl (31.0-35.0); Mean Corpuscular Hemoglobin 31.9 pg (27.0-33.0); Mean Corpuscular Volume 93.4 fL (80.0-98.0); Platelet Count 275 X10*3/uL (160-400); Red Blood Count 4.67 X10*6/uL (4.20-5.50); White Blood Count 9.0 X10*3/uL (4.8-10.8)
[2025-07-18 07:58] LABS: Imm Gran Abs Auto 0.08 X10*3/uL (0.00-0.03); Lymphocytes Absolute Auto 2.7 X10*3/uL (1.2-4.9); MANUAL DIFF FLAG SCAN; NRBC Abs Auto 0.000 X10*3/uL (0.0-0.012); NRBC Pct Auto 0.0 /100WBC (0.0-0.2); SCAN SMEAR FLAG 1
[2025-07-18 08:00] VITALS: BP 123/73; PULSE 82; RESP 16; TEMP 36.2; O2SAT 93
[2025-07-18 08:18] LABS: Alanine Aminotransferase 21 U/L (0-31); Albumin Level 4.5 g/dL (3.5-5.0); Alkaline Phosphatase 66 U/L (39-117); Anion Gap 12 (12-20); Aspartate Amino Transferase 22 U/L (5-31); Blood Urea Nitrogen 20 mg/dL (9-16); Calcium 9.4 mg/dL (8.4-10.2); Carbon Dioxide 29 mmol/L (22-29); Chloride 104 mmol/L (96-108); Creatinine Clr Calc Pharmacy 61.2; Estimated Glomerular Filt Rate > 60; Potassium 4.5 mmol/L (3.3-5.1); Sodium 140 mmol/L (135-145); Total Protein 6.9 g/dL (6.5-8.0)
[2025-07-18 08:39] VITALS: BP 123/73
--- NOTE | 2025-07-18 10:42 | HO.PSYCHPN ---
Subjective Subjective Date of Service: 07/18/25 Reason For Visit: SI Subjective Notes: Conditional Voluntary Interim History: Patient seen psychiatric follow-up. Patient's mood has been somewhat improved had been labile now hoping for rest home placement. Describes history of rapid cycling newly started on Vraylar Mental Status Exam Mental Status Exam Narrative: adequately dressed and groomed. cooperative. speech nml rate, amount, loudness, latency. thoughts linear and logical. affect full range, normo-intense, non-labile. mood improved some expansiveness mild lability. no SI/HI/AVH expressed. Diagnostics Vital Signs (24Hr): Vital Signs - 24 hr 07/17/25 15:16 07/17/25 20:00 07/18/25 08:00 Temperature 96.8 F 97.1 F Pulse Rate 82 62 82 Respiratory Rate 19 16 Blood Pressure 108/60 113/56 L 123/73 Pulse Oximetry 94 93 Oxygen Delivery Method Room Air Room Air 07/18/25 08:39 Temperature Pulse Rate Respiratory Rate Blood Pressure 123/73 Pulse Oximetry Oxygen Delivery Method BMI result Body Mass Index 29.3 Labs 07/18/25 07:51 07/18/25 07:51 Labs: Laboratory Results - last 48 hr 07/18/25 07:51 WBC 9.0 RBC 4.67 Hgb 14.9 Hct 43.6 MCV 93.4 MCH 31.9 MCHC 34.2 RDW 14.5 Plt Count 275 MPV 9.7 Immature Gran % (Auto) 0.9 H Neut % (Auto) 47.3 Lymph % (Auto) 29.3 [place] % (Auto) 18.4 H Eos % (Auto) 3.2 Baso % (Auto) 0.9 Lymph # (Auto) 2.7 [place] # (Auto) 1.7 H Eos # (Auto) 0.3 Baso # (Auto) 0.1 Abs Immat Gran (auto) 0.08 H Absolute Neuts (auto) 4.3 Absolute Nucleated RBC 0.000 Nucleated RBC % (auto) 0.0 Smear Tech's Comments VERIFIED Sodium 140 Potassium 4.5 Chloride 104 Carbon Dioxide 29 Anion Gap 12 BUN 20 H Creatinine 0.94 Estim Creat Clear Calc 61.2 Estimated GFR > 60 Random Glucose 83 Calcium 9.4 Total Bilirubin 0.4 Direct Bilirubin 0.2 AST 22 ALT 21 Alkaline Phosphatase 66 Total Protein 6.9 Albumin 4.5 Valproic Acid 58.7 Imaging Radiology Impressions: ITS Impressions Ankle X-Ray 07/14/25 14:44 IMPRESSION: Possible anterior ankle impingement. There is a large anterior spur involving tibial plafond and degenerative cystic change in the dorsal talar neck. Post-ORIF of the distal fibula the syndesmotic screw. Electronically signed by: Luther Davila MD 07/14/2025 02:58 PM EDT Medications Medications Current Medications Acetaminophen (Acetaminophen 325 Mg Tablet) 650 mg PO Q6H PRN PRN Reason: Headache/Pain, Scale 1-7 Last Admin: 07/16/25 13:55 Dose: 650 mg Al Hydroxide/Mg Hydroxide (Magnesium Hydrox/Alum Hydrox 30 Ml Oral.Susp) 30 ml PO Q6H PRN PRN Reason: Heartburn/Nausea Albuterol/Ipratropium (Albuterol/Iprat 2.5/0.5mg 3 Ml Ampul.Neb) 3 ml INHALE Q6H PRN PRN Reason: Shortness Of Breath Or Wheezing Atorvastatin Calcium (Atorvastatin Calcium 20 Mg Tablet) 60 mg PO DAILY [facility] Last Admin: 07/18/25 08:39 Dose: 60 mg Bismuth Subsalicylate (Bismuth Subsalicylate 262 Mg Tablet) 524 mg PO Q1H PRN PRN Reason: Loose Stool Cariprazine (Cariprazine Hcl 3 Mg Capsule) 3 mg PO DAILY [facility] Last Admin: 07/18/25 08:39 Dose: 3 mg Clonazepam (Clonazepam 1 Mg Tablet) 1 mg PO BID PRN PRN Reason: Anxiety Last Admin: 07/18/25 08:38 Dose: 1 mg Divalproex Sodium (Divalproex Sodium 500 Mg Tablet.Dr) 500 mg PO BID [facility] Last Admin: 07/18/25 08:39 Dose: 500 mg Docusate Sodium (Docusate Sodium 100 Mg Capsule) 100 mg PO BID PRN PRN Reason: Constipation Fluoxetine HCl (Fluoxetine Hcl 20 Mg Capsule) 40 mg PO DAILY [facility] Last Admin: 07/18/25 08:41 Dose: 40 mg Gabapentin (Gabapentin 300 Mg Capsule) 300 mg PO TID [facility] Last Admin: 07/18/25 08:39 Dose: 300 mg Hydroxyzine HCl (Hydroxyzine Hcl 50 Mg Tablet) 50 mg PO TID PRN PRN Reason: Anxiety Last Admin: 07/16/25 21:42 Dose: 50 mg Magnesium Hydroxide (Milk Of Magnesia 30 Ml Oral.Susp) 30 ml PO DAILY PRN PRN Reason: Constipation Midodrine (Midodrine Hcl 2.5 Mg Tablet) 2.5 mg PO TID [facility] Last Admin: 07/18/25 08:39 Dose: 2.5 mg Multivitamins/Vitamin C (Multivitamin Tablet) 1 tab PO DAILY [facility] Last Admin: 07/18/25 08:41 Dose: 1 tab Nicotine Polacrilex (Nicotine Polacrilex 2 Mg Gum) 2 mg BUCCAL Q2H PRN PRN Reason: Nicotine Cravings Omeprazole (Omeprazole 40 Mg Capsule.Dr) 40 mg PO DAILY@0630 [facility] Last Admin: 07/18/25 06:20 Dose: 40 mg Tizanidine HCl (Tizanidine Hcl 4 Mg Tablet) 2 mg PO DAILY [facility] Last Admin: 07/18/25 08:41 Dose: 2 mg Tramadol HCl (Tramadol Hcl 50 Mg Tablet) 50 mg PO Q6H PRN PRN Reason: severe pain (8-10) Last Admin: 07/18/25 08:39 Dose: 50 mg Zolpidem Tartrate (Zolpidem Tartrate 5 Mg Tablet) 10 mg PO BEDTIME PRN PRN Reason: Insomnia Last Admin: 07/16/25 20:38 Dose: 10 mg Allergies Allergies Allergy/AdvReac Type Severity Reaction Status Date / Time hydrocodone (HYDROCODONE) AdvReac Mild ITCHING Verified 07/14/25 08:49 Assessment & Plan Assessment & Plan (1) Suicidal ideation: Status: Acute Code(s): R45.851 - Suicidal ideations (2) Bipolar disorder: Status: Acute Code(s): F31.9 - Bipolar disorder, unspecified (3) COPD (chronic obstructive pulmonary disease): Status: Acute Code(s): J44.9 - Chronic obstructive pulmonary disease, unspecified Plan 07/15: continue regimen as at discharge 07/11 (4 days ago). support housing search. 07/16: social work supports today, irritable and labile. continue current mgmt otherwise. 07/17: tramadol 50 PRN back pain added. may need to decrease klonopin dosing if MS changes occur. no longer labile, in much better spirits as pressing issues outside the hospital have been addressed. 07/18/2025 Lower fluoxetine to 20 mg patient has had recent cycling antidepressants not indicated continue [facility] Discharge planning question of rest home setting Reason for continued inpatient stay Substantial Risk for: harm to self and rapid decompensation Time Spent With Patient Time: Total time managing care of this patient today ____ minutes.
[2025-07-18] MEDS: Umeclidinium/Vilanterol 62.5/25 BLST.W.DEV 1 PUFF INHALE (11:15)
--- NOTE | 2025-07-18 11:30 | P.PNPSI_ITS ---
Subjective Subjective Reason For Visit: SI Diagnostics Vital Signs (24Hr): Vital Signs - 24 hr 07/17/25 15:16 07/17/25 20:00 07/18/25 08:00 Temperature 96.8 F 97.1 F Pulse Rate 82 62 82 Respiratory Rate 19 16 Blood Pressure 108/60 113/56 L 123/73 Pulse Oximetry 94 93 Oxygen Delivery Method Room Air Room Air 07/18/25 08:39 Temperature Pulse Rate Respiratory Rate Blood Pressure 123/73 Pulse Oximetry Oxygen Delivery Method BMI result Body Mass Index 29.3 Labs 07/18/25 07:51 07/18/25 07:51 Labs: Laboratory Results - last 48 hr 07/18/25 07:51 WBC 9.0 RBC 4.67 Hgb 14.9 Hct 43.6 MCV 93.4 MCH 31.9 MCHC 34.2 RDW 14.5 Plt Count 275 MPV 9.7 Immature Gran % (Auto) 0.9 H Neut % (Auto) 47.3 Lymph % (Auto) 29.3 [place] % (Auto) 18.4 H Eos % (Auto) 3.2 Baso % (Auto) 0.9 Lymph # (Auto) 2.7 [place] # (Auto) 1.7 H Eos # (Auto) 0.3 Baso # (Auto) 0.1 Abs Immat Gran (auto) 0.08 H Absolute Neuts (auto) 4.3 Absolute Nucleated RBC 0.000 Nucleated RBC % (auto) 0.0 Smear Tech's Comments VERIFIED Sodium 140 Potassium 4.5 Chloride 104 Carbon Dioxide 29 Anion Gap 12 BUN 20 H Creatinine 0.94 Estim Creat Clear Calc 61.2 Estimated GFR > 60 Random Glucose 83 Calcium 9.4 Total Bilirubin 0.4 Direct Bilirubin 0.2 AST 22 ALT 21 Alkaline Phosphatase 66 Total Protein 6.9 Albumin 4.5 Valproic Acid 58.7 Imaging Radiology Impressions: ITS Impressions Ankle X-Ray 07/14/25 14:44 IMPRESSION: Possible anterior ankle impingement. There is a large anterior spur involving tibial plafond and degenerative cystic change in the dorsal talar neck. Post-ORIF of the distal fibula the syndesmotic screw. Electronically signed by: Luther Davila MD 07/14/2025 02:58 PM EDT Medications Medications Current Medications Acetaminophen (Acetaminophen 325 Mg Tablet) 650 mg PO Q6H PRN PRN Reason: Headache/Pain, Scale 1-7 Last Admin: 07/16/25 13:55 Dose: 650 mg Al Hydroxide/Mg Hydroxide (Magnesium Hydrox/Alum Hydrox 30 Ml Oral.Susp) 30 ml PO Q6H PRN PRN Reason: Heartburn/Nausea Albuterol/Ipratropium (Albuterol/Iprat 2.5/0.5mg 3 Ml Ampul.Neb) 3 ml INHALE Q6H PRN PRN Reason: Shortness Of Breath Or Wheezing Atorvastatin Calcium (Atorvastatin Calcium 20 Mg Tablet) 60 mg PO DAILY [facility] Last Admin: 07/18/25 08:39 Dose: 60 mg Bismuth Subsalicylate (Bismuth Subsalicylate 262 Mg Tablet) 524 mg PO Q1H PRN PRN Reason: Loose Stool Cariprazine (Cariprazine Hcl 3 Mg Capsule) 3 mg PO DAILY [facility] Last Admin: 07/18/25 08:39 Dose: 3 mg Clonazepam (Clonazepam 1 Mg Tablet) 1 mg PO BID PRN PRN Reason: Anxiety Last Admin: 07/18/25 08:38 Dose: 1 mg Divalproex Sodium (Divalproex Sodium 500 Mg Tablet.Dr) 500 mg PO BID [facility] Last Admin: 07/18/25 08:39 Dose: 500 mg Docusate Sodium (Docusate Sodium 100 Mg Capsule) 100 mg PO BID PRN PRN Reason: Constipation Fluoxetine HCl (Fluoxetine Hcl 20 Mg Capsule) 40 mg PO DAILY [facility] Last Admin: 07/18/25 08:41 Dose: 40 mg Gabapentin (Gabapentin 300 Mg Capsule) 300 mg PO TID [facility] Last Admin: 07/18/25 08:39 Dose: 300 mg Hydroxyzine HCl (Hydroxyzine Hcl 50 Mg Tablet) 50 mg PO TID PRN PRN Reason: Anxiety Last Admin: 07/16/25 21:42 Dose: 50 mg Magnesium Hydroxide (Milk Of Magnesia 30 Ml Oral.Susp) 30 ml PO DAILY PRN PRN Reason: Constipation Midodrine (Midodrine Hcl 2.5 Mg Tablet) 2.5 mg PO TID [facility] Last Admin: 07/18/25 08:39 Dose: 2.5 mg Multivitamins/Vitamin C (Multivitamin Tablet) 1 tab PO DAILY [facility] Last Admin: 07/18/25 08:41 Dose: 1 tab Nicotine Polacrilex (Nicotine Polacrilex 2 Mg Gum) 2 mg BUCCAL Q2H PRN PRN Reason: Nicotine Cravings Omeprazole (Omeprazole 40 Mg Capsule.Dr) 40 mg PO DAILY@0630 [facility] Last Admin: 07/18/25 06:20 Dose: 40 mg Tizanidine HCl (Tizanidine Hcl 4 Mg Tablet) 2 mg PO DAILY [facility] Last Admin: 07/18/25 08:41 Dose: 2 mg Tramadol HCl (Tramadol Hcl 50 Mg Tablet) 50 mg PO Q6H PRN PRN Reason: severe pain (8-10) Last Admin: 07/18/25 08:39 Dose: 50 mg Zolpidem Tartrate (Zolpidem Tartrate 5 Mg Tablet) 10 mg PO BEDTIME PRN PRN Reason: Insomnia Last Admin: 07/16/25 20:38 Dose: 10 mg Allergies Allergies Allergy/AdvReac Type Severity Reaction Status Date / Time hydrocodone (HYDROCODONE) AdvReac Mild ITCHING Verified 07/14/25 08:49 Assessment & Plan Assessment & Plan (1) Suicidal ideation: Status: Acute Code(s): R45.851 - Suicidal ideations (2) Bipolar disorder: Status: Acute Code(s): F31.9 - Bipolar disorder, unspecified (3) COPD (chronic obstructive pulmonary disease): Status: Acute Code(s): J44.9 - Chronic obstructive pulmonary disease, unspecified Plan 07/15: continue regimen as at discharge 07/11 (4 days ago). support housing search. 07/16: social work supports today, irritable and labile. continue current mgmt otherwise. 07/17: tramadol 50 PRN back pain added. may need to decrease klonopin dosing if MS changes occur. no longer labile, in much better spirits as pressing issues outside the hospital have been addressed. Time Spent With Patient Time: Total time managing care of this patient today ____ minutes.
[2025-07-18 14:30] VITALS: BP 128/60; PULSE 84
[2025-07-18 20:00] VITALS: BP 110/58; PULSE 76; RESP 18; TEMP 36.6; O2SAT 95
[2025-07-19 08:00] VITALS: BP 127/67; PULSE 103; RESP 16; TEMP 36.6; O2SAT 94
[2025-07-19] MEDS: Umeclidinium/Vilanterol 62.5/25 BLST.W.DEV 1 PUFF INHALE (08:46)
--- NOTE | 2025-07-19 14:47 | P.PNPSI_ITS ---
Subjective Subjective Date of Service: 07/19/25 Reason For Visit: SI Interim History: Met with patient; discussed with team; chart review pt reports she's doing alright, better; still has anxiety and asking for more Clonazepam; discussed options and she agrees to trying a low dose serqouel instead of increasing clonazepam -says Hydroxyzine not helpful Mental Status Exam Mental Status Exam Narrative: Pt is alert and oriented; behavior is cooperative, friendly and calm; patient is not in distress; dressed in casual attire with unkempt hair but adequate hygiene; mood is described as ok and affect congruent; eye contact appropriate; Speech is normal rate, volume and prosody and not pressured; no psychomotor agitation/retardation present; thought process is organized and goal directed; Thought content is on tx; otherwise pertinent to relevant topics and without any delusional content, paranoid ideations or grandiosity; denies any SI/HI. Denies AVH and there is no evidence of perceptual disturbance. Patients insight and judgment appear baseline Diagnostics Vital Signs (24Hr): Vital Signs - 24 hr 07/18/25 20:00 07/19/25 08:00 Temperature 97.8 F 97.8 F Pulse Rate 76 103 H Respiratory Rate 18 16 Blood Pressure 110/58 L 127/67 Pulse Oximetry 95 94 Oxygen Delivery Method Room Air Room Air BMI result Body Mass Index 29.3 Labs 07/18/25 07:51 07/18/25 07:51 Labs: Laboratory Results - last 48 hr 07/18/25 07:51 WBC 9.0 RBC 4.67 Hgb 14.9 Hct 43.6 MCV 93.4 MCH 31.9 MCHC 34.2 RDW 14.5 Plt Count 275 MPV 9.7 Immature Gran % (Auto) 0.9 H Neut % (Auto) 47.3 Lymph % (Auto) 29.3 [place] % (Auto) 18.4 H Eos % (Auto) 3.2 Baso % (Auto) 0.9 Lymph # (Auto) 2.7 [place] # (Auto) 1.7 H Eos # (Auto) 0.3 Baso # (Auto) 0.1 Abs Immat Gran (auto) 0.08 H Absolute Neuts (auto) 4.3 Absolute Nucleated RBC 0.000 Nucleated RBC % (auto) 0.0 Smear Tech's Comments VERIFIED Sodium 140 Potassium 4.5 Chloride 104 Carbon Dioxide 29 Anion Gap 12 BUN 20 H Creatinine 0.94 Estim Creat Clear Calc 61.2 Estimated GFR > 60 Random Glucose 83 Calcium 9.4 Total Bilirubin 0.4 Direct Bilirubin 0.2 AST 22 ALT 21 Alkaline Phosphatase 66 Total Protein 6.9 Albumin 4.5 Valproic Acid 58.7 Imaging Radiology Impressions: ITS Impressions Ankle X-Ray 07/14/25 14:44 IMPRESSION: Possible anterior ankle impingement. There is a large anterior spur involving tibial plafond and degenerative cystic change in the dorsal talar neck. Post-ORIF of the distal fibula the syndesmotic screw. Electronically signed by: Luther Davila MD 07/14/2025 02:58 PM EDT RP Medications Medications Current Medications Acetaminophen (Acetaminophen 325 Mg Tablet) 650 mg PO Q6H PRN PRN Reason: Headache/Pain, Scale 1-7 Last Admin: 07/18/25 20:35 Dose: 650 mg Al Hydroxide/Mg Hydroxide (Magnesium Hydrox/Alum Hydrox 30 Ml Oral.Susp) 30 ml PO Q6H PRN PRN Reason: Heartburn/Nausea Albuterol/Ipratropium (Albuterol/Iprat 2.5/0.5mg 3 Ml Ampul.Neb) 3 ml INHALE Q6H PRN PRN Reason: Shortness Of Breath Or Wheezing Atorvastatin Calcium (Atorvastatin Calcium 20 Mg Tablet) 60 mg PO DAILY [facility] Last Admin: 07/19/25 08:39 Dose: 60 mg Bismuth Subsalicylate (Bismuth Subsalicylate 262 Mg Tablet) 524 mg PO Q1H PRN PRN Reason: Loose Stool Cariprazine (Cariprazine Hcl 3 Mg Capsule) 3 mg PO DAILY [facility] Last Admin: 07/19/25 09:44 Dose: 3 mg Clonazepam (Clonazepam 1 Mg Tablet) 1 mg PO BID PRN PRN Reason: Anxiety Last Admin: 07/19/25 08:45 Dose: 1 mg Divalproex Sodium (Divalproex Sodium 500 Mg Tablet.Dr) 500 mg PO BID [facility] Last Admin: 07/19/25 08:42 Dose: 500 mg Docusate Sodium (Docusate Sodium 100 Mg Capsule) 100 mg PO BID PRN PRN Reason: Constipation Fluoxetine HCl (Fluoxetine Hcl 20 Mg Capsule) 20 mg PO DAILY [facility] Last Admin: 07/19/25 09:43 Dose: 20 mg Gabapentin (Gabapentin 300 Mg Capsule) 300 mg PO TID [facility] Last Admin: 07/19/25 08:45 Dose: 300 mg Hydroxyzine HCl (Hydroxyzine Hcl 50 Mg Tablet) 50 mg PO TID PRN PRN Reason: Anxiety Last Admin: 07/16/25 21:42 Dose: 50 mg Magnesium Hydroxide (Milk Of Magnesia 30 Ml Oral.Susp) 30 ml PO DAILY PRN PRN Reason: Constipation Midodrine (Midodrine Hcl 2.5 Mg Tablet) 2.5 mg PO TID [facility] Last Admin: 07/19/25 08:41 Dose: 2.5 mg Multivitamins/Vitamin C (Multivitamin Tablet) 1 tab PO DAILY [facility] Last Admin: 07/19/25 08:42 Dose: 1 tab Nicotine Polacrilex (Nicotine Polacrilex 2 Mg Gum) 2 mg BUCCAL Q2H PRN PRN Reason: Nicotine Cravings Omeprazole (Omeprazole 40 Mg Capsule.Dr) 40 mg PO DAILY@0630 [facility] Last Admin: 07/19/25 06:33 Dose: 40 mg Tizanidine HCl (Tizanidine Hcl 4 Mg Tablet) 2 mg PO DAILY [facility] Last Admin: 07/19/25 08:40 Dose: 2 mg Tramadol HCl (Tramadol Hcl 50 Mg Tablet) 50 mg PO Q6H PRN PRN Reason: severe pain (8-10) Last Admin: 07/19/25 04:14 Dose: 50 mg Zolpidem Tartrate (Zolpidem Tartrate 5 Mg Tablet) 10 mg PO BEDTIME PRN PRN Reason: Insomnia Last Admin: 07/18/25 20:36 Dose: 10 mg Allergies Allergies Allergy/AdvReac Type Severity Reaction Status Date / Time hydrocodone (HYDROCODONE) AdvReac Mild ITCHING Verified 07/14/25 08:49 Assessment & Plan Assessment & Plan (1) Suicidal ideation: Status: Acute Code(s): R45.851 - Suicidal ideations (2) Bipolar disorder: Status: Acute Code(s): F31.9 - Bipolar disorder, unspecified (3) COPD (chronic obstructive pulmonary disease): Status: Acute Code(s): J44.9 - Chronic obstructive pulmonary disease, unspecified Plan 07/15: continue regimen as at discharge 07/11 (4 days ago). support housing search. 07/16: social work supports today, irritable and labile. continue current mgmt otherwise. 07/17: tramadol 50 PRN back pain added. may need to decrease klonopin dosing if MS changes occur. no longer labile, in much better spirits as pressing issues outside the hospital have been addressed. 07/18/2025 Lower fluoxetine to 20 mg patient has had recent cycling antidepressants not indicated continue Vraylar and Depakote Discharge planning question of rest home setting 07/19 pt reports she's doing alright, better; still has anxiety and asking for more Clonazepam; discussed options and she agrees to trying a low dose serqouel instead of increasing clonazepam -says Hydroxyzine not helpful -added Seroquel 12.5mg BID prn for anxiety Patient educated on: diagnosis and medication risk/benefits Informed Consent: understands Reason for continued inpatient stay Substantial Risk for: rapid decompensation Time Spent With Patient Time: Total time managing care of this patient today ____ minutes.
[2025-07-19 15:36] VITALS: BP 101/68
[2025-07-19 20:00] VITALS: BP 144/64; PULSE 78; RESP 16; TEMP 36.4; O2SAT 95
[2025-07-20] MEDS: Umeclidinium/Vilanterol 62.5/25 BLST.W.DEV 1 PUFF INHALE (07:43)
[2025-07-20 08:00] VITALS: BP 92/52; PULSE 84; RESP 16; TEMP 36.4; O2SAT 96
[2025-07-20 13:57] VITALS: BP 132/63; PULSE 74; O2SAT 97
[2025-07-20 13:58] VITALS: BP 132/63
--- NOTE | 2025-07-20 16:52 | P.PNPSI_ITS ---
Subjective Subjective Date of Service: 07/20/25 Reason For Visit: SI Interim History: Met with patient; discussed with team doing better, anxiety lower with help of prn seroquel and pt wants to keep taking Mental Status Exam Mental Status Exam Narrative: Pt is alert and oriented; behavior is cooperative, friendly and calm; patient is not in distress; dressed in casual attire with unkempt hair but adequate hygiene; mood is described as ok and affect congruent; eye contact appropriate; Speech is normal rate, volume and prosody and not pressured; no psychomotor agitation/retardation present; thought process is organized and goal directed; Thought content is on tx; otherwise pertinent to relevant topics and without any delusional content, paranoid ideations or grandiosity; denies any SI/HI. Denies AVH and there is no evidence of perceptual disturbance. Patients insight and judgment appear baseline Diagnostics Vital Signs (24Hr): Vital Signs - 24 hr 07/19/25 20:00 07/20/25 08:00 07/20/25 13:57 Temperature 97.5 F 97.5 F Pulse Rate 78 84 74 Respiratory Rate 16 16 Blood Pressure 144/64 H 92/52 L 132/63 Pulse Oximetry 95 96 97 Oxygen Delivery Method Room Air Room Air Room Air 07/20/25 13:58 Temperature Pulse Rate Respiratory Rate Blood Pressure 132/63 Pulse Oximetry Oxygen Delivery Method BMI result Body Mass Index 29.3 Labs 07/18/25 07:51 07/18/25 07:51 Imaging Radiology Impressions: ITS Impressions Ankle X-Ray 07/14/25 14:44 IMPRESSION: Possible anterior ankle impingement. There is a large anterior spur involving tibial plafond and degenerative cystic change in the dorsal talar neck. Post-ORIF of the distal fibula the syndesmotic screw. Electronically signed by: Luther Davila MD 07/14/2025 02:58 PM EDT Medications Medications Current Medications Acetaminophen (Acetaminophen 325 Mg Tablet) 650 mg PO Q6H PRN PRN Reason: Headache/Pain, Scale 1-7 Last Admin: 07/20/25 07:39 Dose: 650 mg Al Hydroxide/Mg Hydroxide (Magnesium Hydrox/Alum Hydrox 30 Ml Oral.Susp) 30 ml PO Q6H PRN PRN Reason: Heartburn/Nausea Albuterol/Ipratropium (Albuterol/Iprat 2.5/0.5mg 3 Ml Ampul.Neb) 3 ml INHALE Q6H PRN PRN Reason: Shortness Of Breath Or Wheezing Atorvastatin Calcium (Atorvastatin Calcium 20 Mg Tablet) 60 mg PO DAILY [facility] Last Admin: 07/20/25 07:40 Dose: 60 mg Bismuth Subsalicylate (Bismuth Subsalicylate 262 Mg Tablet) 524 mg PO Q1H PRN PRN Reason: Loose Stool Cariprazine (Cariprazine Hcl 3 Mg Capsule) 3 mg PO DAILY [facility] Last Admin: 07/20/25 07:40 Dose: 3 mg Clonazepam (Clonazepam 1 Mg Tablet) 1 mg PO BID PRN PRN Reason: Anxiety Last Admin: 07/20/25 07:39 Dose: 1 mg Divalproex Sodium (Divalproex Sodium 500 Mg Tablet.) 500 mg PO BID [facility] Last Admin: 07/20/25 07:40 Dose: 500 mg Docusate Sodium (Docusate Sodium 100 Mg Capsule) 100 mg PO BID PRN PRN Reason: Constipation Fluoxetine HCl (Fluoxetine Hcl 20 Mg Capsule) 20 mg PO DAILY [facility] Last Admin: 07/20/25 07:41 Dose: 20 mg Gabapentin (Gabapentin 300 Mg Capsule) 300 mg PO TID [facility] Last Admin: 07/20/25 13:58 Dose: 300 mg Hydroxyzine HCl (Hydroxyzine Hcl 50 Mg Tablet) 50 mg PO TID PRN PRN Reason: Anxiety Last Admin: 07/16/25 21:42 Dose: 50 mg Magnesium Hydroxide (Milk Of Magnesia 30 Ml Oral.Susp) 30 ml PO DAILY PRN PRN Reason: Constipation Midodrine (Midodrine Hcl 2.5 Mg Tablet) 2.5 mg PO TID [facility] Last Admin: 07/20/25 13:58 Dose: 2.5 mg Multivitamins/Vitamin C (Multivitamin Tablet) 1 tab PO DAILY [facility] Last Admin: 07/20/25 07:41 Dose: 1 tab Nicotine Polacrilex (Nicotine Polacrilex 2 Mg Gum) 2 mg BUCCAL Q2H PRN PRN Reason: Nicotine Cravings Omeprazole (Omeprazole 40 Mg Capsule.) 40 mg PO DAILY@0630 [facility] Last Admin: 07/20/25 06:35 Dose: 40 mg Quetiapine Fumarate (Quetiapine Fumarate 25 Mg Tablet) 12.5 mg PO BID PRN PRN Reason: anxiety Last Admin: 07/19/25 20:50 Dose: 12.5 mg Tizanidine HCl (Tizanidine Hcl 4 Mg Tablet) 2 mg PO DAILY [facility] Last Admin: 07/20/25 07:40 Dose: 2 mg Tramadol HCl (Tramadol Hcl 50 Mg Tablet) 50 mg PO Q6H PRN PRN Reason: severe pain (8-10) Last Admin: 07/20/25 13:58 Dose: 50 mg Zolpidem Tartrate (Zolpidem Tartrate 5 Mg Tablet) 10 mg PO BEDTIME PRN PRN Reason: Insomnia Last Admin: 07/19/25 20:49 Dose: 10 mg Allergies Allergies Allergy/AdvReac Type Severity Reaction Status Date / Time hydrocodone (HYDROCODONE) AdvReac Mild ITCHING Verified 07/14/25 08:49 Assessment & Plan Assessment & Plan (1) Suicidal ideation: Status: Acute Code(s): R45.851 - Suicidal ideations (2) Bipolar disorder: Status: Acute Code(s): F31.9 - Bipolar disorder, unspecified (3) COPD (chronic obstructive pulmonary disease): Status: Acute Code(s): J44.9 - Chronic obstructive pulmonary disease, unspecified Plan 07/15: continue regimen as at discharge 07/11 (4 days ago). support housing search. 07/16: social work supports today, irritable and labile. continue current mgmt otherwise. 07/17: tramadol 50 PRN back pain added. may need to decrease klonopin dosing if MS changes occur. no longer labile, in much better spirits as pressing issues outside the hospital have been addressed. 07/18/2025 Lower fluoxetine to 20 mg patient has had recent cycling antidepressants not indicated continue Vraylar and Depakote Discharge planning question of rest home setting 07/19 pt reports she's doing alright, better; still has anxiety and asking for more Clonazepam; discussed options and she agrees to trying a low dose serqouel instead of increasing clonazepam -says Hydroxyzine not helpful -added Seroquel 12.5mg BID prn for anxiety 07/20 CTP -likes prn serqoquel 12.5mg bid prn Patient educated on: diagnosis and medication risk/benefits Informed Consent: understands Reason for continued inpatient stay Substantial Risk for: rapid decompensation Time Spent With Patient Time: Total time managing care of this patient today ____ minutes.
[2025-07-20 20:00] VITALS: BP 120/58; PULSE 66; RESP 16; TEMP 36.7; O2SAT 96
[2025-07-20 20:27] VITALS: BP 120/68
[2025-07-21 08:00] VITALS: BP 112/54; PULSE 87; RESP 16; TEMP 36.6; O2SAT 95
[2025-07-21] MEDS: Umeclidinium/Vilanterol 62.5/25 BLST.W.DEV 1 PUFF INHALE (08:18)
--- NOTE | 2025-07-21 12:54 | P.PNPSI_ITS ---
Subjective Subjective Date of Service: 07/21/25 Reason For Visit: SI Interim History: calm, cooperative, pleasant. feels medications are working well for her. denies any grogginess or fogginess or sedation. states she is planning to go to a respite, not a rest home. doesn't know where she'd go after the respite, however. per staff, getting some pain meds for back. asking for klonopin and tramadol. slept 8 hours. awaiting rest home placement. Mental Status Exam Mental Status Exam Narrative: adequately dressed and groomed. cooperative. speech nml rate, amount, loudness, latency. thoughts linear and logical. affect full range, normo- intense, non-labile. mood euthymic. no SI/HI/AVH expressed. Diagnostics Vital Signs (24Hr): Vital Signs - 24 hr 07/20/25 13:57 07/20/25 13:58 07/20/25 20:00 Temperature 98.1 F Pulse Rate 74 66 Respiratory Rate 16 Blood Pressure 132/63 132/63 120/58 L Pulse Oximetry 97 96 Oxygen Delivery Method Room Air Room Air 07/20/25 20:27 07/21/25 08:00 Temperature 97.9 F Pulse Rate 87 Respiratory Rate 16 Blood Pressure 120/68 112/54 L Pulse Oximetry 95 Oxygen Delivery Method Room Air BMI result Body Mass Index 29.3 Labs 07/18/25 07:51 07/18/25 07:51 Imaging Radiology Impressions: ITS Impressions Ankle X-Ray 07/14/25 14:44 IMPRESSION: Possible anterior ankle impingement. There is a large anterior spur involving tibial plafond and degenerative cystic change in the dorsal talar neck. Post-ORIF of the distal fibula the syndesmotic screw. Electronically signed by: Luther Davila MD 07/14/2025 02:58 PM EDT RP Medications Medications Current Medications Acetaminophen (Acetaminophen 325 Mg Tablet) 650 mg PO Q6H PRN PRN Reason: Headache/Pain, Scale 1-7 Last Admin: 07/20/25 07:39 Dose: 650 mg Al Hydroxide/Mg Hydroxide (Magnesium Hydrox/Alum Hydrox 30 Ml Oral.Susp) 30 ml PO Q6H PRN PRN Reason: Heartburn/Nausea Albuterol/Ipratropium (Albuterol/Iprat 2.5/0.5mg 3 Ml Ampul.Neb) 3 ml INHALE Q6H PRN PRN Reason: Shortness Of Breath Or Wheezing Atorvastatin Calcium (Atorvastatin Calcium 20 Mg Tablet) 60 mg PO DAILY [facility] Last Admin: 07/21/25 08:19 Dose: 60 mg Bismuth Subsalicylate (Bismuth Subsalicylate 262 Mg Tablet) 524 mg PO Q1H PRN PRN Reason: Loose Stool Cariprazine (Cariprazine Hcl 3 Mg Capsule) 3 mg PO DAILY [facility] Last Admin: 07/21/25 08:21 Dose: 3 mg Clonazepam (Clonazepam 1 Mg Tablet) 1 mg PO BID PRN PRN Reason: Anxiety Last Admin: 07/21/25 08:21 Dose: 1 mg Divalproex Sodium (Divalproex Sodium 500 Mg Tablet.) 500 mg PO BID [facility] Last Admin: 07/21/25 08:20 Dose: 500 mg Docusate Sodium (Docusate Sodium 100 Mg Capsule) 100 mg PO BID PRN PRN Reason: Constipation Fluoxetine HCl (Fluoxetine Hcl 20 Mg Capsule) 20 mg PO DAILY [facility] Last Admin: 07/21/25 08:20 Dose: 20 mg Gabapentin (Gabapentin 300 Mg Capsule) 300 mg PO TID [facility] Last Admin: 07/21/25 08:22 Dose: 300 mg Hydroxyzine HCl (Hydroxyzine Hcl 50 Mg Tablet) 50 mg PO TID PRN PRN Reason: Anxiety Last Admin: 07/16/25 21:42 Dose: 50 mg Magnesium Hydroxide (Milk Of Magnesia 30 Ml Oral.Susp) 30 ml PO DAILY PRN PRN Reason: Constipation Midodrine (Midodrine Hcl 2.5 Mg Tablet) 2.5 mg PO TID [facility] Last Admin: 07/21/25 08:20 Dose: 2.5 mg Multivitamins/Vitamin C (Multivitamin Tablet) 1 tab PO DAILY [facility] Last Admin: 07/21/25 08:20 Dose: 1 tab Nicotine Polacrilex (Nicotine Polacrilex 2 Mg Gum) 2 mg BUCCAL Q2H PRN PRN Reason: Nicotine Cravings Omeprazole (Omeprazole 40 Mg Capsule.) 40 mg PO DAILY@0630 [facility] Last Admin: 07/21/25 06:38 Dose: 40 mg Quetiapine Fumarate (Quetiapine Fumarate 25 Mg Tablet) 12.5 mg PO BID PRN PRN Reason: anxiety Last Admin: 07/20/25 20:38 Dose: 12.5 mg Tizanidine HCl (Tizanidine Hcl 4 Mg Tablet) 2 mg PO DAILY [facility] Last Admin: 07/21/25 08:21 Dose: 2 mg Tramadol HCl (Tramadol Hcl 50 Mg Tablet) 50 mg PO Q6H PRN PRN Reason: severe pain (8-10) Last Admin: 07/21/25 08:20 Dose: 50 mg Zolpidem Tartrate (Zolpidem Tartrate 5 Mg Tablet) 10 mg PO BEDTIME PRN PRN Reason: Insomnia Last Admin: 07/20/25 20:37 Dose: 10 mg Allergies Allergies Allergy/AdvReac Type Severity Reaction Status Date / Time hydrocodone (HYDROCODONE) AdvReac Mild ITCHING Verified 07/14/25 08:49 Assessment & Plan Assessment & Plan (1) Suicidal ideation: Status: Acute Code(s): R45.851 - Suicidal ideations (2) Bipolar disorder: Status: Acute Code(s): F31.9 - Bipolar disorder, unspecified (3) COPD (chronic obstructive pulmonary disease): Status: Acute Code(s): J44.9 - Chronic obstructive pulmonary disease, unspecified Plan 07/15: continue regimen as at discharge 07/11 (4 days ago). support housing search. 07/16: social work supports today, irritable and labile. continue current mgmt otherwise. 07/17: tramadol 50 PRN back pain added. may need to decrease klonopin dosing if MS changes occur. no longer labile, in much better spirits as pressing issues outside the hospital have been addressed. 07/18/2025 Lower fluoxetine to 20 mg patient has had recent cycling antidepressants not indicated continue Vraylar and Depakote Discharge planning question of rest home setting 07/19 pt reports she's doing alright, better; still has anxiety and asking for more Clonazepam; discussed options and she agrees to trying a low dose serqouel instead of increasing clonazepam -says Hydroxyzine not helpful -added Seroquel 12.5mg BID prn for anxiety 07/20 CTP -likes prn serqoquel 12.5mg bid prn 07/21: feels happy with regimen. euthymic. planning for discharge. continue current mgmt. Reason for continued inpatient stay Substantial Risk for: inability to function and rapid decompensation Time Spent With Patient Time: Total time managing care of this patient today __25__ minutes.
[2025-07-21 14:08] VITALS: BP 139/71
[2025-07-21 20:00] VITALS: BP 111/59; PULSE 75; RESP 16; TEMP 35.6; O2SAT 92
[2025-07-21 21:01] VITALS: BP 111/59
[2025-07-22 08:00] VITALS: BP 119/80; PULSE 79; RESP 16; TEMP 36.8; O2SAT 93
[2025-07-22 08:36] VITALS: BP 119/80
[2025-07-22] MEDS: Umeclidinium/Vilanterol 62.5/25 BLST.W.DEV 1 PUFF INHALE (08:36)
--- NOTE | 2025-07-22 12:49 | P.PNPSI_ITS ---
Subjective Subjective Date of Service: 07/22/25 Reason For Visit: SI Interim History: feeling well on present regimen. no complaints or requests. per staff, pain and mild anxiety. visible, social. dep 5 anx 8. slept 8 hours. Mental Status Exam Mental Status Exam Narrative: adequately dressed and groomed. cooperative. speech nml rate, amount, loudness, latency. thoughts linear and logical. affect full range, normo- intense, non-labile. mood euthymic. no SI/HI/AVH expressed. Diagnostics Vital Signs (24Hr): Vital Signs - 24 hr 07/21/25 14:08 07/21/25 20:00 07/21/25 21:01 Temperature 96.1 F L Pulse Rate 75 Respiratory Rate 16 Blood Pressure 139/71 111/59 L 111/59 L Pulse Oximetry 92 Oxygen Delivery Method Room Air 07/22/25 08:00 07/22/25 08:36 Temperature 98.2 F Pulse Rate 79 Respiratory Rate 16 Blood Pressure 119/80 119/80 Pulse Oximetry 93 Oxygen Delivery Method Room Air BMI result Body Mass Index 29.3 Labs 07/18/25 07:51 07/18/25 07:51 Imaging Radiology Impressions: ITS Impressions Ankle X-Ray 07/14/25 14:44 IMPRESSION: Possible anterior ankle impingement. There is a large anterior spur involving tibial plafond and degenerative cystic change in the dorsal talar neck. Post-ORIF of the distal fibula the syndesmotic screw. Electronically signed by: Luther Davila MD 07/14/2025 02:58 PM EDT RP Medications Medications Current Medications Acetaminophen (Acetaminophen 325 Mg Tablet) 650 mg PO Q6H PRN PRN Reason: Headache/Pain, Scale 1-7 Last Admin: 07/20/25 07:39 Dose: 650 mg Al Hydroxide/Mg Hydroxide (Magnesium Hydrox/Alum Hydrox 30 Ml Oral.Susp) 30 ml PO Q6H PRN PRN Reason: Heartburn/Nausea Albuterol/Ipratropium (Albuterol/Iprat 2.5/0.5mg 3 Ml Ampul.Neb) 3 ml INHALE Q6H PRN PRN Reason: Shortness Of Breath Or Wheezing Atorvastatin Calcium (Atorvastatin Calcium 20 Mg Tablet) 60 mg PO DAILY [facility] Last Admin: 07/22/25 08:37 Dose: 60 mg Bismuth Subsalicylate (Bismuth Subsalicylate 262 Mg Tablet) 524 mg PO Q1H PRN PRN Reason: Loose Stool Cariprazine (Cariprazine Hcl 3 Mg Capsule) 3 mg PO DAILY [facility] Last Admin: 07/22/25 08:37 Dose: 3 mg Clonazepam (Clonazepam 1 Mg Tablet) 1 mg PO BID PRN PRN Reason: Anxiety Last Admin: 07/22/25 08:39 Dose: 1 mg Divalproex Sodium (Divalproex Sodium 500 Mg Tablet.Dr) 500 mg PO BID [facility] Last Admin: 07/22/25 08:36 Dose: 500 mg Docusate Sodium (Docusate Sodium 100 Mg Capsule) 100 mg PO BID PRN PRN Reason: Constipation Fluoxetine HCl (Fluoxetine Hcl 20 Mg Capsule) 20 mg PO DAILY [facility] Last Admin: 07/22/25 08:39 Dose: 20 mg Gabapentin (Gabapentin 300 Mg Capsule) 300 mg PO TID [facility] Last Admin: 07/22/25 08:37 Dose: 300 mg Hydroxyzine HCl (Hydroxyzine Hcl 50 Mg Tablet) 50 mg PO TID PRN PRN Reason: Anxiety Last Admin: 07/16/25 21:42 Dose: 50 mg Magnesium Hydroxide (Milk Of Magnesia 30 Ml Oral.Susp) 30 ml PO DAILY PRN PRN Reason: Constipation Midodrine (Midodrine Hcl 2.5 Mg Tablet) 2.5 mg PO TID [facility] Last Admin: 07/22/25 08:36 Dose: 2.5 mg Multivitamins/Vitamin C (Multivitamin Tablet) 1 tab PO DAILY [facility] Last Admin: 07/22/25 08:37 Dose: 1 tab Nicotine Polacrilex (Nicotine Polacrilex 2 Mg Gum) 2 mg BUCCAL Q2H PRN PRN Reason: Nicotine Cravings Omeprazole (Omeprazole 40 Mg Capsule.) 40 mg PO DAILY@0630 [facility] Last Admin: 07/22/25 06:28 Dose: 40 mg Quetiapine Fumarate (Quetiapine Fumarate 25 Mg Tablet) 12.5 mg PO BID PRN PRN Reason: anxiety Last Admin: 07/21/25 21:12 Dose: 12.5 mg Tizanidine HCl (Tizanidine Hcl 4 Mg Tablet) 2 mg PO DAILY [facility] Last Admin: 07/22/25 08:37 Dose: 2 mg Tramadol HCl (Tramadol Hcl 50 Mg Tablet) 50 mg PO Q6H PRN PRN Reason: severe pain (8-10) Last Admin: 07/22/25 08:39 Dose: 50 mg Zolpidem Tartrate (Zolpidem Tartrate 5 Mg Tablet) 10 mg PO BEDTIME PRN PRN Reason: Insomnia Last Admin: 07/21/25 21:14 Dose: 10 mg Allergies Allergies Allergy/AdvReac Type Severity Reaction Status Date / Time hydrocodone (HYDROCODONE) AdvReac Mild ITCHING Verified 07/14/25 08:49 Assessment & Plan Assessment & Plan (1) Suicidal ideation: Status: Acute Code(s): R45.851 - Suicidal ideations (2) Bipolar disorder: Status: Acute Code(s): F31.9 - Bipolar disorder, unspecified (3) COPD (chronic obstructive pulmonary disease): Status: Acute Code(s): J44.9 - Chronic obstructive pulmonary disease, unspecified Plan 07/15: continue regimen as at discharge 07/11 (4 days ago). support housing search. 07/16: social work supports today, irritable and labile. continue current mgmt otherwise. 07/17: tramadol 50 PRN back pain added. may need to decrease klonopin dosing if MS changes occur. no longer labile, in much better spirits as pressing issues outside the hospital have been addressed. 07/18/2025 Lower fluoxetine to 20 mg patient has had recent cycling antidepressants not indicated continue Vraylar and Depakote Discharge planning question of rest home setting 07/19 pt reports she's doing alright, better; still has anxiety and asking for more Clonazepam; discussed options and she agrees to trying a low dose serqouel instead of increasing clonazepam -says Hydroxyzine not helpful -added Seroquel 12.5mg BID prn for anxiety 07/20 CTP -likes prn serqoquel 12.5mg bid prn 07/21: feels happy with regimen. euthymic. planning for discharge. continue current mgmt. 07/22: feels happy with regimen. euthymic. planning for discharge. continue current mgmt. Reason for continued inpatient stay Substantial Risk for: inability to function and rapid decompensation Time Spent With Patient Time: Total time managing care of this patient today __25__ minutes.
[2025-07-22 15:45] VITALS: BP 113/67
[2025-07-22 20:00] VITALS: BP 128/78; PULSE 85; RESP 20; TEMP 36.7; O2SAT 94
[2025-07-23 08:00] VITALS: BP 127/77; PULSE 84; RESP 18; TEMP 36.6; O2SAT 95
[2025-07-23] MEDS: Umeclidinium/Vilanterol 62.5/25 BLST.W.DEV 1 PUFF INHALE (08:51)
[2025-07-23 08:54] VITALS: BP 127/77
--- NOTE | 2025-07-23 13:56 | P.PNPSI_ITS ---
Subjective Subjective Date of Service: 07/23/25 Reason For Visit: SI Interim History: safe, stable, feeling well mood-sheldon, pain controlled with tramadol. awaiting dispo to be set. no issues. Mental Status Exam Mental Status Exam Narrative: adequately dressed and groomed. cooperative. speech nml rate, amount, loudness, latency. thoughts linear and logical. affect full range, normo- intense, non-labile. mood euthymic. no SI/HI/AVH expressed. Diagnostics Vital Signs (24Hr): Vital Signs - 24 hr 07/22/25 15:45 07/22/25 20:00 07/23/25 08:00 Temperature 98.0 F 97.9 F Pulse Rate 85 84 Respiratory Rate 20 18 Blood Pressure 113/67 128/78 127/77 Pulse Oximetry 94 95 Oxygen Delivery Method Room Air Room Air 07/23/25 08:54 Temperature Pulse Rate Respiratory Rate Blood Pressure 127/77 Pulse Oximetry Oxygen Delivery Method BMI result Body Mass Index 29.3 Labs 07/18/25 07:51 07/18/25 07:51 Imaging Radiology Impressions: ITS Impressions Ankle X-Ray 07/14/25 14:44 IMPRESSION: Possible anterior ankle impingement. There is a large anterior spur involving tibial plafond and degenerative cystic change in the dorsal talar neck. Post-ORIF of the distal fibula the syndesmotic screw. Electronically signed by: Luther Davila MD 07/14/2025 02:58 PM EDT Medications Medications Current Medications Acetaminophen (Acetaminophen 325 Mg Tablet) 650 mg PO Q6H PRN PRN Reason: Headache/Pain, Scale 1-7 Last Admin: 07/20/25 07:39 Dose: 650 mg Al Hydroxide/Mg Hydroxide (Magnesium Hydrox/Alum Hydrox 30 Ml Oral.Susp) 30 ml PO Q6H PRN PRN Reason: Heartburn/Nausea Albuterol/Ipratropium (Albuterol/Iprat 2.5/0.5mg 3 Ml Ampul.Neb) 3 ml INHALE Q6H PRN PRN Reason: Shortness Of Breath Or Wheezing Atorvastatin Calcium (Atorvastatin Calcium 20 Mg Tablet) 60 mg PO DAILY [facility] Last Admin: 07/23/25 10:45 Dose: 60 mg Bismuth Subsalicylate (Bismuth Subsalicylate 262 Mg Tablet) 524 mg PO Q1H PRN PRN Reason: Loose Stool Cariprazine (Cariprazine Hcl 3 Mg Capsule) 3 mg PO DAILY [facility] Last Admin: 07/23/25 08:56 Dose: 3 mg Clonazepam (Clonazepam 1 Mg Tablet) 1 mg PO BID PRN PRN Reason: Anxiety Last Admin: 07/23/25 13:34 Dose: 1 mg Divalproex Sodium (Divalproex Sodium 500 Mg Tablet.) 500 mg PO BID [facility] Last Admin: 07/23/25 08:55 Dose: 500 mg Docusate Sodium (Docusate Sodium 100 Mg Capsule) 100 mg PO BID PRN PRN Reason: Constipation Fluoxetine HCl (Fluoxetine Hcl 20 Mg Capsule) 20 mg PO DAILY [facility] Last Admin: 07/23/25 08:55 Dose: 20 mg Gabapentin (Gabapentin 300 Mg Capsule) 300 mg PO TID [facility] Last Admin: 07/23/25 08:55 Dose: 300 mg Hydroxyzine HCl (Hydroxyzine Hcl 50 Mg Tablet) 50 mg PO TID PRN PRN Reason: Anxiety Last Admin: 07/16/25 21:42 Dose: 50 mg Magnesium Hydroxide (Milk Of Magnesia 30 Ml Oral.Susp) 30 ml PO DAILY PRN PRN Reason: Constipation Midodrine (Midodrine Hcl 2.5 Mg Tablet) 2.5 mg PO TID [facility] Last Admin: 07/23/25 08:54 Dose: 2.5 mg Multivitamins/Vitamin C (Multivitamin Tablet) 1 tab PO DAILY [facility] Last Admin: 07/23/25 08:55 Dose: 1 tab Nicotine Polacrilex (Nicotine Polacrilex 2 Mg Gum) 2 mg BUCCAL Q2H PRN PRN Reason: Nicotine Cravings Omeprazole (Omeprazole 40 Mg Capsule.) 40 mg PO DAILY@0630 [facility] Last Admin: 07/23/25 05:29 Dose: 40 mg Quetiapine Fumarate (Quetiapine Fumarate 25 Mg Tablet) 12.5 mg PO BID PRN PRN Reason: anxiety Last Admin: 07/21/25 21:12 Dose: 12.5 mg Tizanidine HCl (Tizanidine Hcl 4 Mg Tablet) 2 mg PO DAILY [facility] Last Admin: 07/23/25 08:55 Dose: 2 mg Tramadol HCl (Tramadol Hcl 50 Mg Tablet) 50 mg PO Q6H PRN PRN Reason: severe pain (8-10) Last Admin: 07/23/25 13:04 Dose: 50 mg Zolpidem Tartrate (Zolpidem Tartrate 5 Mg Tablet) 10 mg PO BEDTIME PRN PRN Reason: Insomnia Last Admin: 07/22/25 20:04 Dose: 10 mg Allergies Allergies Allergy/AdvReac Type Severity Reaction Status Date / Time hydrocodone (HYDROCODONE) AdvReac Mild ITCHING Verified 07/14/25 08:49 Assessment & Plan Assessment & Plan (1) Suicidal ideation: Status: Acute Code(s): R45.851 - Suicidal ideations (2) Bipolar disorder: Status: Acute Code(s): F31.9 - Bipolar disorder, unspecified (3) COPD (chronic obstructive pulmonary disease): Status: Acute Code(s): J44.9 - Chronic obstructive pulmonary disease, unspecified Plan 07/15: continue regimen as at discharge 07/11 (4 days ago). support housing search. 07/16: social work supports today, irritable and labile. continue current mgmt otherwise. 07/17: tramadol 50 PRN back pain added. may need to decrease klonopin dosing if MS changes occur. no longer labile, in much better spirits as pressing issues outside the hospital have been addressed. 07/18/2025 Lower fluoxetine to 20 mg patient has had recent cycling antidepressants not indicated continue Vraylar and Depakote Discharge planning question of rest home setting 07/19 pt reports she's doing alright, better; still has anxiety and asking for more Clonazepam; discussed options and she agrees to trying a low dose serqouel instead of increasing clonazepam -says Hydroxyzine not helpful -added Seroquel 12.5mg BID prn for anxiety 07/20 CTP -likes prn serqoquel 12.5mg bid prn 07/21: feels happy with regimen. euthymic. planning for discharge. continue current mgmt. 07/22: feels happy with regimen. euthymic. planning for discharge. continue current mgmt. 07/23: no change in status or plan. Reason for continued inpatient stay Substantial Risk for: rapid decompensation Time Spent With Patient Time: Total time managing care of this patient today __25__ minutes.
[2025-07-23 15:17] VITALS: BP 116/66
[2025-07-23 20:00] VITALS: BP 147/96; PULSE 113; RESP 17; TEMP 36.6; O2SAT 94
[2025-07-23 22:42] VITALS: BP 147/96
[2025-07-24 08:00] VITALS: BP 128/74; PULSE 75; RESP 17; TEMP 36.6; O2SAT 94
[2025-07-24] MEDS: Umeclidinium/Vilanterol 62.5/25 BLST.W.DEV 1 PUFF INHALE (08:12)
[2025-07-24 08:15] VITALS: BP 128/74
[2025-07-24 10:27] VITALS: BMI 29.9
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
[2025-07-24 15:17] VITALS: BP 114/55
[2025-07-24 20:00] VITALS: BP 148/88; PULSE 100; RESP 18; TEMP 36.1; O2SAT 94
[2025-07-25 08:00] VITALS: BP 133/63; PULSE 82; RESP 16; TEMP 36.6; O2SAT 95
[2025-07-25] MEDS: Umeclidinium/Vilanterol 62.5/25 BLST.W.DEV 1 PUFF INHALE (09:06)
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
[2025-07-25 20:00] VITALS: BP 167/87; PULSE 91; RESP 17; TEMP 36.5; O2SAT 96
[2025-07-25 20:47] VITALS: BP 167/87
[2025-07-25 20:50] LABS: Ammonia 31 umol/L (13-55)
[2025-07-25 20:54] LABS: Alanine Aminotransferase 23 U/L (0-31); Albumin Level 4.7 g/dL (3.5-5.0); Alkaline Phosphatase 99 U/L (39-117); Anion Gap 16 (12-20); Aspartate Amino Transferase 26 U/L (5-31); Blood Urea Nitrogen 20 mg/dL (9-16); Calcium 9.6 mg/dL (8.4-10.2); Carbon Dioxide 26 mmol/L (22-29); Chloride 105 mmol/L (96-108); Creatinine Clr Calc Pharmacy 60.5; Estimated Glomerular Filt Rate 59; Potassium 3.8 mmol/L (3.3-5.1); Sodium 143 mmol/L (135-145); Total Protein 7.4 g/dL (6.5-8.0)
[2025-07-26 08:54] VITALS: BP 151/85; PULSE 98; RESP 18; TEMP 36.9; O2SAT 95
[2025-07-26] MEDS: Umeclidinium/Vilanterol 62.5/25 BLST.W.DEV 1 PUFF INHALE (08:58)
[2025-07-26 14:26] VITALS: BP 104/57; PULSE 99
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
[2025-07-26 20:00] VITALS: BP 136/86; PULSE 94; RESP 16; TEMP 37.6; O2SAT 99
[2025-07-26 20:53] VITALS: BP 136/86
[2025-07-27 08:14] VITALS: BP 110/57; PULSE 82; RESP 18; TEMP 36.7; O2SAT 95
[2025-07-27] MEDS: Umeclidinium/Vilanterol 62.5/25 BLST.W.DEV 1 PUFF INHALE (08:41)
[2025-07-27 14:15] VITALS: BP 127/64; PULSE 93
--- NOTE | 2025-07-27 14:34 | HO.PSYCHPN ---
Subjective Subjective Date of Service: 07/27/25 Reason For Visit: SI Interim History: calm, pleasant. denies delusions. brushes off her delusions of yesterday. no complaints about med dose reductions or increases. per staff, peasant. no anxiety. getting klonopin, tramadol. paranoid delusions in the morning. Mental Status Exam Mental Status Exam Narrative: adequately dressed and groomed. cooperative. speech nml rate, amount, loudness, latency. thoughts linear and logical. affect full range, normo-intense, non-labile. mood euthymic. no SI/HI/AVH expressed. Diagnostics Vital Signs (24Hr): Vital Signs - 24 hr 07/26/25 20:00 07/26/25 20:53 07/27/25 08:14 Temperature 99.7 F 98.1 F Pulse Rate 94 82 Respiratory Rate 16 18 Blood Pressure 136/86 136/86 110/57 L Pulse Oximetry 99 95 Oxygen Delivery Method Room Air Room Air 07/27/25 14:15 Temperature Pulse Rate 93 Respiratory Rate Blood Pressure 127/64 Pulse Oximetry Oxygen Delivery Method BMI result Body Mass Index 29.9 Labs 07/18/25 07:51 07/25/25 20:25 Labs: Laboratory Results - last 48 hr 07/25/25 20:25 Sodium 143 Potassium 3.8 Chloride 105 Carbon Dioxide 26 Anion Gap 16 BUN 20 H Creatinine 0.96 Estim Creat Clear Calc 60.5 Estimated GFR 59 Random Glucose 123 H Calcium 9.6 Total Bilirubin 0.4 Direct Bilirubin 0.1 AST 26 ALT 23 Alkaline Phosphatase 99 Ammonia 31 Total Protein 7.4 Albumin 4.7 Valproic Acid 48.6 L Imaging Radiology Impressions: ITS Impressions Ankle X-Ray 07/14/25 14:44 IMPRESSION: Possible anterior ankle impingement. There is a large anterior spur involving tibial plafond and degenerative cystic change in the dorsal talar neck. Post-ORIF of the distal fibula the syndesmotic screw. Electronically signed by: Luther Davila MD 07/14/2025 02:58 PM EDT Medications Medications Current Medications Acetaminophen (Acetaminophen 325 Mg Tablet) 650 mg PO Q6H PRN PRN Reason: Headache/Pain, Scale 1-7 Last Admin: 07/24/25 08:28 Dose: 650 mg Al Hydroxide/Mg Hydroxide (Magnesium Hydrox/Alum Hydrox 30 Ml Oral.Susp) 30 ml PO Q6H PRN PRN Reason: Heartburn/Nausea Albuterol/Ipratropium (Albuterol/Iprat 2.5/0.5mg 3 Ml Ampul.Neb) 3 ml INHALE Q6H PRN PRN Reason: Shortness Of Breath Or Wheezing Atorvastatin Calcium (Atorvastatin Calcium 20 Mg Tablet) 60 mg PO DAILY [facility] Last Admin: 07/27/25 08:43 Dose: 60 mg Bismuth Subsalicylate (Bismuth Subsalicylate 262 Mg Tablet) 524 mg PO Q1H PRN PRN Reason: Loose Stool Cariprazine (Cariprazine Hcl 1.5 Mg Capsule) 4.5 mg PO DAILY [facility] Last Admin: 07/27/25 08:42 Dose: 4.5 mg Clonazepam (Clonazepam 0.5 Mg Tablet) 0.5 mg PO BID PRN PRN Reason: Anxiety Last Admin: 07/27/25 09:09 Dose: 0.5 mg Divalproex Sodium (Divalproex Sodium Er 500 Mg Tab.Er.24h) 1,500 mg PO BEDTIME [facility] Last Admin: 07/26/25 20:52 Dose: 1,500 mg Docusate Sodium (Docusate Sodium 100 Mg Capsule) 100 mg PO BID PRN PRN Reason: Constipation Fluoxetine HCl (Fluoxetine Hcl 20 Mg Capsule) 40 mg PO DAILY [facility] Last Admin: 07/27/25 08:42 Dose: 40 mg Gabapentin (Gabapentin 300 Mg Capsule) 300 mg PO TID [facility] Last Admin: 07/27/25 14:28 Dose: 300 mg Magnesium Hydroxide (Milk Of Magnesia 30 Ml Oral.Susp) 30 ml PO DAILY PRN PRN Reason: Constipation Midodrine (Midodrine Hcl 2.5 Mg Tablet) 2.5 mg PO TID [facility] Last Admin: 07/27/25 14:28 Dose: 2.5 mg Multivitamins/Vitamin C (Multivitamin Tablet) 1 tab PO DAILY [facility] Last Admin: 07/27/25 08:44 Dose: 1 tab Nicotine Polacrilex (Nicotine Polacrilex 2 Mg Gum) 2 mg BUCCAL Q2H PRN PRN Reason: Nicotine Cravings Omeprazole (Omeprazole 40 Mg Capsule.Dr) 40 mg PO DAILY@0630 [facility] Last Admin: 07/27/25 06:29 Dose: 40 mg Quetiapine Fumarate (Quetiapine Fumarate 25 Mg Tablet) 12.5 mg PO BID PRN PRN Reason: anxiety Last Admin: 07/26/25 20:54 Dose: 12.5 mg Tizanidine HCl (Tizanidine Hcl 4 Mg Tablet) 2 mg PO DAILY [facility] Last Admin: 07/27/25 08:43 Dose: 2 mg Tramadol HCl (Tramadol Hcl 50 Mg Tablet) 25 mg PO Q8H PRN PRN Reason: severe pain (8-10) Last Admin: 07/27/25 09:09 Dose: 25 mg Zolpidem Tartrate (Zolpidem Tartrate 5 Mg Tablet) 10 mg PO BEDTIME PRN PRN Reason: Insomnia Last Admin: 07/26/25 20:55 Dose: 10 mg Allergies Allergies Allergy/AdvReac Type Severity Reaction Status Date / Time hydrocodone (HYDROCODONE) AdvReac Mild ITCHING Verified 07/14/25 08:49 Assessment & Plan Assessment & Plan (1) Suicidal ideation: Status: Acute Code(s): R45.851 - Suicidal ideations (2) Bipolar disorder: Status: Acute Code(s): F31.9 - Bipolar disorder, unspecified (3) COPD (chronic obstructive pulmonary disease): Status: Acute Code(s): J44.9 - Chronic obstructive pulmonary disease, unspecified Plan 07/15: continue regimen as at discharge 07/11 (4 days ago). support housing search. 07/16: social work supports today, irritable and labile. continue current mgmt otherwise. 07/17: tramadol 50 PRN back pain added. may need to decrease klonopin dosing if MS changes occur. no longer labile, in much better spirits as pressing issues outside the hospital have been addressed. 07/18/2025 Lower fluoxetine to 20 mg patient has had recent cycling antidepressants not indicated continue Vraylar and Depakote Discharge planning question of rest home setting 07/19 pt reports she's doing alright, better; still has anxiety and asking for more Clonazepam; discussed options and she agrees to trying a low dose serqouel instead of increasing clonazepam -says Hydroxyzine not helpful -added Seroquel 12.5mg BID prn for anxiety 07/20 CTP -likes prn serqoquel 12.5mg bid prn 07/21: feels happy with regimen. euthymic. planning for discharge. continue current mgmt. 07/22: feels happy with regimen. euthymic. planning for discharge. continue current mgmt. 07/23: no change in status or plan. 07/24: delusions and possibly AH. increase vraylar to 4.5 mg daily. decrease klonopin to 0.75 mg BID PRN, decrease tramadol to 25 mg per dose. T/C decreasing ambien moving forward as well, but pt is extremely resistant to that at the moment. 3-day notice signed. 07/25: variable affect. calm and denying nocturnal concerns to MD. apparently endorsing the same to numerous other staff. labile in family meeting, demanding discharge, which was declined. will continue to try to reduce medications likely to cause perceptual disturbances in the evening. check VPA level and ammonia. 3-day notice matures monday. 07/26: floridly psychotic this morning, believes shots fired in the [place] and someone coming to kill her; states she called the police. labs reviewed, low VPA level. agreeable to increase dosing to 1500 mg QHS. decrease klonopin dosing to 0.5 mg per dose. DC hydroxyzine PRNs due to anticholinergic effects. 07/27: brushes off delusions of yesterday. feeling well, full affect. not irritable or unpleasant. no complaints about medication dosing modifications. continue current mgmt. 3-day notice up monday. Reason for continued inpatient stay Substantial Risk for: inability to function and rapid decompensation Time Spent With Patient Time: Total time managing care of this patient today ____ minutes.
[2025-07-27 20:00] VITALS: BP 104/55; PULSE 73; RESP 18; TEMP 36.8; O2SAT 95
[2025-07-28 08:00] VITALS: BP 101/66; PULSE 90; RESP 17; TEMP 36.7; O2SAT 94
[2025-07-28 08:07] VITALS: BP 101/66
[2025-07-28] MEDS: Umeclidinium/Vilanterol 62.5/25 BLST.W.DEV 1 PUFF INHALE (08:10)
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
[2025-07-28 15:02] VITALS: BP 130/84
[2025-07-28 20:00] VITALS: BP 135/64; PULSE 88; RESP 18; TEMP 36.9; O2SAT 95
[2025-07-29 08:45] VITALS: BP 149/85; PULSE 99; RESP 16; TEMP 36.9; O2SAT 95
[2025-07-29] MEDS: Umeclidinium/Vilanterol 62.5/25 BLST.W.DEV 1 PUFF INHALE (08:46)
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
[2025-07-29 14:46] VITALS: BP 120/57
== END 2025-07-29 16:55 | disposition home or self-care (01) | DRG 753 ==
LOC: HO.ED 13:39 → HO.PGERI 19:19
PROVIDERS: Physician Assistant Medical; Psychiatry & Neurology Psychiatry; Admitting Provider Nurse Practitioner Psychiatric/Mental Health; Emergency Provider Emergency Medicine; PCP Internal Medicine; Visit Provider Nurse Practitioner Psychiatric/Mental Health
DX: F31.9 Bipolar disorder, unspecified (principal); R45.851 Suicidal ideations; F17.210 Nicotine dependence, cigarettes, uncomplicated; J44.9 Chronic obstructive pulmonary disease, unspecified; Z71.6 Tobacco abuse counseling; F41.9 Anxiety disorder, unspecified; E78.5 Hyperlipidemia, unspecified; M54.9 Dorsalgia, unspecified; G89.29 Other chronic pain; Z59.02 Unsheltered homelessness; Z79.899 Other long term (current) drug therapy
CPT/HCPCS: 36415; 73610; 80048; 80053; 80061; 80076; 80143; 80164; 80179; 80307; 81001; 82140; 83036; 84439; 84443; 85025; 93005; 99285; S9485

== ENCOUNTER → 2025-07-14 11:00 | Outpatient (BNV) | payer OTHER, SELFPAY | PROVIDERS: Admitting Provider Nurse Practitioner Psychiatric/Mental Health; Emergency Provider Emergency Medicine; PCP Internal Medicine; Visit Provider Internal Medicine | DX: R94.31 Abnormal electrocardiogram [ECG] [EKG] (principal); Z13.6 Encounter for screening for cardiovascular disorders | CPT/HCPCS: 93010 ==

== ENCOUNTER → 2025-07-14 14:17 | Outpatient (BNV) | payer OTHER, SELFPAY | PROVIDERS: Emergency Provider Emergency Medicine; PCP Internal Medicine; Visit Provider Radiology Diagnostic Radiology | DX: M25.771 Osteophyte, right ankle (principal) | CPT/HCPCS: 73610 ==

== ENCOUNTER → 2025-07-14 18:53 | Outpatient (BNV) | payer OTHER, SELFPAY | PROVIDERS: Admitting Provider Nurse Practitioner Psychiatric/Mental Health; Emergency Provider Emergency Medicine; PCP Internal Medicine; Visit Provider Nurse Practitioner Family | DX: Z02.2 Encounter for examination for admission to residential institution (principal); J44.9 Chronic obstructive pulmonary disease, unspecified | CPT/HCPCS: 99429 ==

== ENCOUNTER → 2025-07-14 18:53 | Outpatient (BNV) | payer OTHER, SELFPAY | PROVIDERS: Admitting Provider Nurse Practitioner Psychiatric/Mental Health; Emergency Provider Emergency Medicine; PCP Internal Medicine; Visit Provider Psychiatry & Neurology Psychiatry | DX: R45.851 Suicidal ideations (principal); F31.9 Bipolar disorder, unspecified; J44.9 Chronic obstructive pulmonary disease, unspecified | CPT/HCPCS: 99222; 99231; 99232; 99233 ==

== ENCOUNTER → 2025-07-14 18:53 | Outpatient (BNV) | payer OTHER, SELFPAY | PROVIDERS: Admitting Provider Nurse Practitioner Psychiatric/Mental Health; Emergency Provider Emergency Medicine; PCP Internal Medicine; Visit Provider Psychiatry & Neurology Psychiatry | DX: R45.851 Suicidal ideations (principal); F31.9 Bipolar disorder, unspecified; J44.9 Chronic obstructive pulmonary disease, unspecified | CPT/HCPCS: 99232 ==